=== PATIENT | male | born 1945 | race Caucasian/White ===

== ENCOUNTER 2018-09-13 08:33 | Emergency (ER) | payer MEDICARE, OTHER ==
--- NOTE | 2018-09-13 08:43 | UC ---
Respiratory Complaint HPI - HPI Summary HPI Summary: 73 yo male presents with SOB and fatigue. He tells me that about a week ago he developed fatigue, body aches, and a mild dry cough. Over the last 2-3 days has had increased fatigue and SOB that was at it's worst last night and today. Last night had a fever of 104F per . was sick was similar symptoms a few days ago, but has since improved. Pt did not get a flu shot this year. He has not taken anything OTC for his symptoms. Denies sinus symptoms, chest pain, abdominal pain, n/v/d. He does not smoke. Denies any PMHx - History of Current Complaint Stated Complaint: FEVER COUGH BODY ACHES Time Seen by Provider: 09/13/18 08:43 Hx Obtained From: Patient Onset/Duration: Gradual Onset Timing: Constant Severity Initially: Mild Severity Currently: Moderate Pain Intensity: 5 Pain Scale Used: 0-10 Numeric Character: Cough: Productive - Allergies/Home Medications Allergies/Adverse Reactions: Allergies Allergy/AdvReac Type Severity Reaction Status Date / Time No Known Allergies Allergy Verified 09/13/18 08:53 Home Medications: Home Medications Omeprazole CAP(NF) [PriLOSEC CAP(NF)] 20 mg PO BID 09/13/18 [History Confirmed 09/13/18] Timolol Maleate [Istalol] 1 drop OP DAILY 09/13/18 [History Confirmed 09/13/18] PMH/Surg Hx/FS Hx/Imm Hx - Additional Past Medical History Additional PMH: None - Surgical History Surgical History: Yes Surgery Procedure, Year, and Place: DOUBLE HERNIA REPAIR, APPENDECTOMY, TONSILLECTOMY - Family History Known Family History: Positive: None - Social History Lives: With Family Alcohol Use: Occasionally Substance Use Type: None Smoking Status (MU): Never Smoked Tobacco - Immunization History Most Recent Tetanus Shot: <5 YEARS ( OF 01/15/15) Review of Systems All Other Systems Reviewed And Are Negative: Yes Constitutional: Positive: Fever, Fatigue, Other - Body aches Skin: Positive: Negative Eyes: Positive: Negative ENT: Positive: Sore Throat Respiratory: Positive: Shortness Of Breath, Cough Cardiovascular: Positive: Negative Gastrointestinal: Positive: Negative Neurovascular: Positive: Negative Neurological: Positive: Negative Psychological: Positive: Negative Physical Exam - Summary Physical Exam Summary: GENERAL: Mild resp distress. SKIN: No rashes, sores, lesions, or open wounds. HEENT: Head: AT/NC Eyes: EOM intact. Conjunctiva clear without inflammation or discharge. Ears: Hearing grossly normal. TMs intact, no bulging, erythema, or edema. Nose: Nasal mucosa pink and moist. NTTP maxillary and frontal sinus. Throat: Posterior oropharynx without exudates, erythema, or tonsillar enlargement. Uvula midline. NECK: Supple. Nontender. No lymphadenopathy. CHEST: Bibasilar crackles and decreased breath sounds throughout. Noted use of accessory muscles for breathing. CV: Tachy. Without m/r/g. Pulses intact. Cap refill <2seconds ABDOMEN: Soft. NTTP. No distention or guarding. Bowel sounds present NEURO: Alert. PSYCH: Age appropriate behavior. Triage Information Reviewed: Yes Vital Signs: Vital Signs: Temp Pulse Resp BP Pulse Ox 100.5 F 104 24 143/83 89 09/13/18 08:43 09/13/18 08:43 09/13/18 08:43 09/13/18 08:43 09/13/18 08:43 Laboratory Tests 09/13/18 09:02 Influenza A (Rapid) Positive A Vital Signs Reviewed: Yes Respiratory Course/Dx - Course Course Of Treatment: Initially pt was 88% on RA and was placed on 2L O2 NC and sat roque to around 90%, then placed on 3L and roque to 92%. POC flu positive. XR : IMPRESSION: PATCHY BIBASILAR CONSOLIDATION. RECOMMEND FOLLOW-UP UNTIL RESOLUTION TO EXCLUDE UNDERLYING. PULMONARY PARENCHYMAL PATHOLOGY. He was given a duoneb treatment and remained on 3L with O2% around 90-92%. Discussed with pt and his and recommended ambulance transfer to ED for further evaluation for PNA and hypoxia. Pt and were agreeable to this. Report called to Swapna NOWAK in ED. Pt left stable via [facility]s. - Differential Dx/Diagnosis Provider Diagnosis: Pneumonia, SOB (shortness of breath) Discharge - Sign-Out/Discharge Documenting (check all that apply): Patient Departure All imaging exams completed and their final reports reviewed: Yes - Discharge Plan Condition: Stable Disposition: TRANS HIGHER LVL OF CARE FAC Referrals: Julio Cesar Agudelo MD [Primary Care Provider] - - Billing Disposition and Condition Condition: STABLE Disposition: Trans Higher Lvl of Care Fac
[2018-09-13] MEDS ORDERED: Albuterol/Ipratropium NEB.SOL* Albuterol 2.5 MG/Ipratropium 0.5 MG 3 ML INH ONE (08:52)
[2018-09-13] MEDS ORDERED: Ipratropium 0.5MG/2.5ML NEB* 0.5 MG/2.5 ML NEB.SOLN INH ONE (08:54)
[2018-09-13] MEDS ORDERED: Albuterol 2.5 MG/3 ML NEB.SOL* (0.083%) INH ONE ×2 (08:54→08:55)
[2018-09-13 09:07] LABS: Influenza A Molecular POSITIVE (Negative)
[2018-09-13 09:50] VITALS: BP 137/70
== END 2018-09-13 10:03 | disposition short-term general hospital (02) ==
LOC: UCEAST 08:33
DX: J18.9 Pneumonia, unspecified organism (principal); R06.02 Shortness of breath
CPT/HCPCS: 71046; 93005; 99213; G0463

== ENCOUNTER 2018-09-13 10:08 | Inpatient (IN) | payer MEDICARE, OTHER ==
[2018-09-13] MEDS ORDERED: Vancomycin(*) 1,500 MG in NS 0.9% 250 ML* 250 ML IVPB ONE (10:32)
[2018-09-13] MEDS ORDERED: Piperacillin/Tazobac ADVAN(*) 3.375 GM in NS 0.9% 100 ML* 100 ML IVPB ONE (10:33)
[2018-09-13] MEDS: NS 0.9% 1000 ML** 1,000 ML IV.FLUID IV ONE ×2 (10:42→11:28)
[2018-09-13] MEDS ORDERED: Acetaminophen TAB* 325 MG PO ONE (10:46)
[2018-09-13] MEDS ORDERED: guaiFENesin/CODIEN 100MG-10MG* 5 ML UDC PO ONE (10:46)
[2018-09-13] MEDS ORDERED: Albuterol/Ipratropium NEB.SOL* Albuterol 2.5 MG/Ipratropium 0.5 MG 3 ML INH ONE (10:47)
--- NOTE | 2018-09-13 10:51 | ED ---
Respiratory - HPI Summary HPI Summary: A 73 y/o male brought in by [facility] ambulance from presents to [facility] with a chief complaint of SOB. Per patient he has an uncontrollable cough, headache and lightheadedness since 09/07/18. The patient reports that at he was diagnosed with the flu and pneumonia. He was given a nebulizer at . He reports that he coughs up yellow phlegm without blood. He has NKDA and no Hx of heart conditions or COPD. He claims to have had hernia and meniscus surgeries. Vital signs while in room - HR: 98 bpm, O2 Sat: 92, BP: 106/66 - History of Current Complaint Chief Complaint: EDRespiratoryDistress Stated Complaint: SOB AND CONFIRMED FLU PER EMS Time Seen by Provider: 09/13/18 10:29 Hx Obtained From: Patient Onset/Duration: Sudden Onset, Lasting Days, Still Present Timing: Constant Initial Severity: Mild Current Severity: Mild Pain Intensity: 0 - out of 10 Character: Cough (Productive), Dyspnea at Rest Sputum Color: Yellow Aggravating Factor(s): Nothing Alleviating Factor(s): Nothing Associated Signs and Symptoms: Dyspnea - Allergy/Home Medications Allergies/Adverse Reactions: Allergies Allergy/AdvReac Type Severity Reaction Status Date / Time No Known Allergies Allergy Verified 09/13/18 08:53 PMH/Surg Hx/FS Hx/Imm Hx Respiratory History: Reports: Hx Pneumonia Sensory History: Denies: Hx Deafness - Surgical History Surgery Procedure, Year, and Place: DOUBLE HERNIA REPAIR, APPENDECTOMY, TONSILLECTOMY Infectious Disease History: No Infectious Disease History: Denies: Traveled Outside the [place] in Last 30 Days - Family History Known Family History: Negative: Blood Disorder - Social History Alcohol Use: Occasionally Substance Use Type: Reports: None Smoking Status (MU): Never Smoked Tobacco Review of Systems Positive: Fever, Chills Positive: Shortness Of Breath, Cough Neurological: Other - positive: lightheadedness Positive: Headache All Other Systems Reviewed And Are Negative: Yes Physical Exam - Summary Physical Exam Summary: GENERAL: Patient is ill-appearing M who is lying comfortable in the stretcher. Patient is not in any acute respiratory distress. HEAD AND FACE: Normocephalic EYES: PERRLA, EOMI x 2. EARS: Hearing grossly intact. MOUTH: Oropharynx within normal limits. NECK: Supple, trachea is midline, no adenopathy, no JVD, no carotid bruit. CHEST: Symmetric, no tenderness at palpation LUNGS: Rhonchorous and wheezing. CVS: Regular rate and rhythm, S1 and S2 present, no murmurs or gallops appreciated. ABDOMEN: Soft, non-tender. Bowel sounds are normal. No abdominal abnormal pulsations. EXTREMITIES: Full ROM in all major joints, no edema, no cyanosis or clubbing. NEURO: Alert and oriented x 3. No acute neurological deficits. Speech is normal and follows commands. SKIN: Dry and warm Triage Information Reviewed: Yes Vital Signs On Initial Exam: Initial Vitals Temp Pulse Resp BP Pulse Ox 102.3 F 91 22 130/74 91 09/13/18 10:17 09/13/18 10:17 09/13/18 10:17 09/13/18 10:17 09/13/18 10:17 Vital Signs Reviewed: Yes Diagnostics - Vital Signs Vital Signs Temp Pulse Resp BP Pulse Ox 09/13/18 10:38 90 09/13/18 10:17 102.3 F 91 22 130/74 91 - Laboratory Result Diagrams: 09/14/18 05:24 09/14/18 05:24 Lab Statement: Any lab studies that have been ordered have been reviewed, and results considered in the medical decision making process. - EKG 11:44 Cardiac Rate: NL - 90 bpm EKG Rhythm: Sinus Rhythm Summary of EKG Findings: EKG at 11:44 showed normal sinus rhythm at 90 bpm with RBBB. Re-Evaluation - Re-Evaluation First Eval Re-Evaluation Time: 11:30 Change: Unchanged Comment: Informed patient of plan for admission. Disposition - Course Course Of Treatment: A 73 y/o male brought in by [facility] ambulance from presents to [facility] with a chief complaint of SOB. Workup is remarkable. The physical exam revealed that the patient was rhonchorous and wheezing and ill appearing. EKG at 11:44 showed normal sinus rhythm at 90 bpm with RBBB. In the ED course the patient was given Duoneb INH, Decadron IV, Robitussin PO, and Sodium Chloride IV. Bloodwork and chemisties obtained. Troponin of 0.05 at 10: 41. Case discussed with hospitalist, Dr. Kaur. I discussed results with patient. The patient agrees with this plan. - Diagnoses Provider Diagnoses: Sepsis due to pneumonia - Physician Notifications Discussed Care Of Patient With: Zaid Kaur Time Discussed With Above Provider: 11:27 Instructed by Provider To: Admit As Inpatient - Critical Care Time Critical Care Time: 30-74 min Discharge - Sign-Out/Discharge Documenting (check all that apply): Patient Departure - admit Patient Received Moderate/Deep Sedation with Procedure: No - Discharge Plan Condition: Fair Disposition: ADMITTED TO [facility] - Billing Disposition and Condition Condition: FAIR Disposition: Admitted to [facility] - Attestation Statements Document Initiated by Scribe: Yes Documenting Scribe: Bhaskar Pace Provider For Whom Tsering is Documenting (Include Credential): Amol Noble MD Scribe Attestation: Bhaskar Santiago scribed for Amol Noble MD on 09/14/18 at 0908. Scribe Documentation Reviewed: Yes Provider Attestation: The documentation as recorded by the Bhaskar christy accurately reflects the service I personally performed and the decisions made by me, Alaina Noble MD Status of Scribe Document: Viewed
[2018-09-13 10:55] LABS: ABS Basophils 0 10^3/ul (0-0.2); ABS Eosinophils 0 10^3/ul (0-0.6); ABS Lymphocytes 0.8 10^3/ul (1.0-4.8); ABS Monocytes 0.5 10^3/ul (0-0.8); ABS Neutrophils 4.5 10^3/ul (1.5-7.7); ABS Nucleated RBC 0 10^3/ul; Eosinophil % 0 %; Hematocrit 29 % (42-52); Hemoglobin 10.1 g/dl (14.0-18.0); Lymphocyte % 13.7 %; Mean Corpuscular HGB Conc 35 g/dl (31-36); Mean Corpuscular Hemoglobin 32 pg (27-31); Mean Corpuscular Volume 92 fL (80-94); Mean Platelet Volume 7.5 fL (7.4-10.4); Nucleated Red Blood Cells % 0; Platelet Count 154 10^3/ul (150-450); Red Blood Count 3.15 10^6/ul (4.00-5.40); Red Cell Distribution Width 14 % (10.5-15); White Blood Count 5.8 10^3/ul (3.5-10.8)
[2018-09-13 11:11] LABS: Activated Partial Thrombo Time 41.2 seconds (26.0-36.3); INR 1.38 (0.77-1.02)
[2018-09-13 11:13] LABS: ALT 28 U/L (7-52); AST 49 U/L (13-39); Albumin/Globulin Ratio 0.5 (1-3); Alkaline Phosphatase 37 U/L (34-104); Anion Gap 10 mmol/L (2-11); BUN/Creatinine Ratio 19.7 (8-20); Blood Urea Nitrogen 25 mg/dL (6-24); C Reactive Protein 92.15 mg/L (<8.01); CO2 Carbon Dioxide 24 mmol/L (22-32); Calcium 8.2 mg/dL (8.6-10.3); Chloride 97 mmol/L (101-111); EGFR African American 67.5 (>60); EGFR Non-African American 55.7 (>60); Glucose 128 mg/dL (70-100); Potassium 3.5 mmol/L (3.5-5.0); Sodium 131 mmol/L (135-145)
[2018-09-13 11:16] LABS: Troponin I 0.05 ng/mL (<0.04)
[2018-09-13] MEDS ORDERED: Dexamethasone IV* 4 MG/ML 1 ML (4 MG) IM ONE (11:23)
[2018-09-13] MEDS ORDERED: Acetaminophen TAB* 325 MG PO PRN (11:43)
[2018-09-13] MEDS ORDERED: Ondansetron INJ* 2 MG/ML VIAL IV PRN (11:43)
[2018-09-13] MEDS ORDERED: Albuterol/Ipratropium NEB.SOL* Albuterol 2.5 MG/Ipratropium 0.5 MG 3 ML INH PRN (11:49)
[2018-09-13] MEDS ORDERED: Oseltamivir SUSP 75 MG dose* 75 MG/12.5 ML ORAL.SYRIN PO SCH (12:00)
[2018-09-13 12:39] LABS: Total Iron Binding Capacity 193 mcg/dL (250-450); Transferrin 138 mg/dL (203-362)
[2018-09-13 12:56] LABS: Ferritin 305.5 ng/mL (24-336)
[2018-09-13 13:00] LABS: Folate > 20.00 ng/mL (>3.99)
[2018-09-13 13:08] LABS: % Iron Saturation 9 % (15-55); Iron < 17 ug/dL (50-212)
[2018-09-13 13:34] LABS: Fibrinogen 403.3 mg/dL (110.8-404.3)
[2018-09-13] MEDS: Oseltamivir CAP* 75 MG CAP PO SCH ×2 (13:45→20:07)
[2018-09-13] MEDS: cefTRIAXone(*) 1 GM in NS 0.9% 50 ML* 50 ML IVPB SCH (14:13)
[2018-09-13] MEDS: DOXYcycline IV* 100 MG in NS 0.9% 250 ML* 250 ML IVPB SCH (14:56)
--- NOTE | 2018-09-13 15:00 | HP ---
CC: Dr. Agudelo, MD * ADMISSION HISTORY AND PHYSICAL: DATE OF ADMISSION: 09/13/18 PRIMARY CARE PROVIDER: Dr. Agudelo at the MD MY ATTENDING WHILE IN THE HOSPITAL: Dr. Zaid Kaur * (DICTATED BY MARYANN ROSAS) CHIEF COMPLAINT: Shortness of breath x1 week. HISTORY OF PRESENT ILLNESS: Mr. Root is a 73-year-old male with past medical history significant only for GERD and hyperlipidemia, who presents to the emergency department after 1 week of shortness of breath accompanied by muscle aches, fevers, chills, and general feeling of malaise. The patient states that this started on 09/07/18 with high fevers, muscle aches, shortness of breath. The patient states this continued for a couple days and then he began to feel better but then felt worse again. The patient feels very short of breath with exertion but has no significant restrictions on his activity level as long as he goes slowly. The patient has chest pain with coughing but no chest pain at rest. No swelling in his legs, no orthopnea. The patient has no sick contacts, but his did have a similar illness throughout this time that she has now fully recovered from. The patient notes occasional wheezing. The patient has no history of reactive airways disease. The patient denies diarrhea, abdominal pain, pain with urination. The patient has cough which is intermittently productive of nonbloody, uncolored sputum. The patient presented to emergency care due to continued shortness of breath, was found to be flu positive and have chest x-ray with bilateral infiltrates consistent with pneumonia and the patient was referred to the emergency department. In the emergency department, the patient came in, was febrile, tachycardiac requiring a large amount of oxygen to maintain his oxygen saturations above 90%. The patient had labs which showed no leukocytosis, but an elevated creatinine, slightly elevated troponin, normal lactic acid and elevated CRP. Due to concern for community acquired pneumonia, we were asked to evaluate the patient for admission to hospital. The patient has not had any significant weight loss, weight gain, night sweats, difficulty swallowing. PAST MEDICAL HISTORY: 1. GERD. 2. Hyperlipidemia. 3. Glaucoma. PAST SURGICAL HISTORY: 1. Hernia repair. 2. Meniscus repair. MEDICATIONS: 1. Omeprazole 20 mg p.o. daily. 2. Pravastatin unknown dose. 3. Timolol 1 drop both eyes daily. 4. Aspirin 81 mg p.o. daily. ALLERGIES: No known drug allergies. FAMILY HISTORY: The patient's father of [place]. The patient's mother of unknown cancer. The patient has 2 sisters who are alive and healthy. SOCIAL HISTORY: The patient never smoked, drinks alcohol occasionally. No illicit drug use. 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 The patient is and has 3 children. REVIEW OF SYSTEMS: A 14-point review of systems was reviewed and is negative except as noted above in the HPI. PHYSICAL EXAMINATION GENERAL: The patient is a 73-year-old male who appears stated age and sitting in the bed with a slightly increased work of breathing. VITAL SIGNS: Temperature 102.3, pulse rate 91, respiratory rate 22, oxygen saturation 95% on 10 L, blood pressure 100/60. HEENT: Head: Normocephalic, atraumatic. Sclerae anicteric. No conjunctival injection. Nasal mucosa moist. Oral mucosa moist. No pharyngeal erythema, discharge, or exudate. NECK: Supple, nontender. No lymphadenopathy. No carotid bruit auscultated. No JVD. RESPIRATORY: Severe rhonchi in the bilateral lower lobes. Good air exchange bilaterally. No wheezing heard at this time. CARDIAC: No tachycardiac. No clicks, murmurs, gallops, or rubs. Pulses 2+ in the bilateral dorsalis pedis, posterior tibialis, and radial areas. ABDOMEN: Soft, nontender, nondistended. Bowel sounds present and normoactive in all 4 quadrants. No hepatosplenomegaly. No abdominal bruits auscultated. No hepatojugular reflux. GENITOURINARY: No suprapubic or CVA tenderness. NEURO: Cranial nerves II through XII intact. No focal deficits. Alert and oriented x3. PSYCHIATRIC: Pleasant and cooperative. SKIN: Clean, dry, and intact. No rash. DIAGNOSTIC STUDIES/LAB DATA: White blood cell count 5.8, hemoglobin 10.1, hematocrit 29, platelet count 154. INR 1.38. APTT 41.2. Sodium 131, potassium 3.5, chloride 97, carbon dioxide 24, anion gap 10, BUN 25, creatinine 1.27, glucose 128, lactic acid 1.1, calcium 8.2. Bilirubin 0.6, AST 49, ALT 28 , alkaline phosphatase 37. Troponin-I 0.05. CRP 92.15. Protein 9.0, albumin 3.0, globulin 6.0, albumin-globulin ratio 0.5. Studies: Chest x-ray from Urgent Care read as patchy opacities with consolidation. Recommend follow up until resolution to exclude underlying pulmonary parenchymal pathology. Electrocardiogram shows right bundle-branch block. No ST segment elevation or depression. Normal axes. No other T wave, ST segment changes, rate of 90, QTc of 473. Poor quality study due to motion artifact consistent with EKG from earlier today. ASSESSMENT AND PLAN: Impression: Mr. Root is a 73-year-old male with minor past medical history significant only for gastroesophageal reflux disease and hyperlipidemia, who presents to the emergency department with 1 week of shortness of breath. The patient is flu A positive and has infiltrates on his lung exam consistent with community acquired pneumonia likely bacterial superinfection over his community acquired pneumonia. The patient will be admitted to the hospital for antibiotic as well as supportive treatment. 1. Acute hypoxic respiratory failure, sepsis, influenza positive community acquired pneumonia. The patient is meeting sepsis criteria. The patient is tachycardiac, febrile, though the patient has no leukocytosis. The patient with elevated CRP and is tachypneic. The patient received his fluid bolus of 30 mL/kg. In the emergency department, the patient received broad-spectrum antibiotic coverage with ceftriaxone and doxycycline. The patient received steroids in the emergency department as well as inhalers and wheezing that was reported on admission has now improved. The patient will be continued on steroids high dose for a short course and inhalers will be available as needed. The patient will receive vancomycin taper and Zosyn while in the emergency department. The patient will be treated with ceftriaxone, doxycycline to cover community acquired pathogens as well as methicillin-resistant Staphylococcus aureus post influenza. The patient will be monitored closely. The patient does not appear to be fatiguing from his work of breathing at this time. Further positive pressure ventilation can be considered if the patient begins to show more signs of fatiguing. 2. Anemia. The patient is anemic with slightly elevated MCH. Given his lack of past medical history, we will order an iron panel, vitamin B12 and a folate. This in a combination with the patient's high globulin level raises factor of some sort of chronic inflammatory condition previously undiagnosed. 3. Elevated INR and APTT. This is of unknown cause; we will repeat in the morning. This may warrant further evaluation outside when the patient is no longer suffering from this acute illness, thought that this may be related to the aforementioned and possible chronic long-term systemic inflammation. 4. Hyperlipidemia. Continue the patient's statins. 5. Gastroesophageal reflux disease. Continue the patient's omeprazole. 6. DVT prophylaxis. The patient will get heparin subcu. 7. FEN. The patient will have a heart healthy diet without caffeine and fluids at 100 ml/h after his bolus is completed. 8. Disposition. The patient will be admitted inpatient. 9. Estimated length of stay greater than 2 midnights. TIME SPENT: Approximately 60 minutes was spent on the admission of this patient , 30 of which was spent [id number] with the patient obtaining history and physical and discussing treatment plan. The plan was discussed with my attending, Dr. Zaid Kaur, and he is in agreement. MARYANN ROSAS [id number]/[facility] #: [id number] PAULA
[2018-09-13] MEDS: Heparin VIAL(*) 5000 UNITS/ML VIAL (FIVE THOUSAND) SUBCUT SCH ×2 (15:12→21:49)
[2018-09-13 15:16] LABS: Troponin I 0.04 ng/mL (<0.04)
[2018-09-13] MEDS: Atorvastatin* 20 MG TAB PO SCH (20:07)
[2018-09-13] MEDS: Pantoprazole TAB * 40 MG TAB PO SCH (20:07)
[2018-09-13] MEDS: guaiFENesin ER TAB 600 MG PO SCH (20:07)
[2018-09-13] MEDS: NS 0.9% 1000 ML** 1,000 ML IV SCH (21:49)
[2018-09-14] MEDS: DOXYcycline IV* 100 MG in NS 0.9% 250 ML* 250 ML IVPB SCH (01:21)
[2018-09-14 05:16] LABS: Urine Appearance Cloudy; Urine Bacteria Absent (Absent); Urine Bilirubin Negative (Negative); Urine Blood Negative (Negative); Urine Color Yellow; Urine Glucose 2+(150 mg/dL) (Negative); Urine Ketones Negative (Negative); Urine Nitrite Negative (Negative); Urine Protein 1+(30 mg/dL) (Negative); Urine Red Blood Cell Absent (Absent); Urine Specific Gravity 1.028 (1.010-1.030); Urine Urobilinogen Negative (Negative); Urine White Blood Cell Absent (Absent)
[2018-09-14] MEDS: Heparin VIAL(*) 5000 UNITS/ML VIAL (FIVE THOUSAND) SUBCUT SCH ×3 (05:22→21:06)
[2018-09-14 05:44] LABS: ABS Basophils 0 10^3/ul (0-0.2); ABS Eosinophils 0 10^3/ul (0-0.6); ABS Lymphocytes 0.9 10^3/ul (1.0-4.8); ABS Monocytes 0.3 10^3/ul (0-0.8); ABS Neutrophils 6.4 10^3/ul (1.5-7.7); ABS Nucleated RBC 0 10^3/ul; Eosinophil % 0 %; Hematocrit 29 % (42-52); Hemoglobin 9.9 g/dl (14.0-18.0); Lymphocyte % 11.3 %; Mean Corpuscular HGB Conc 34 g/dl (31-36); Mean Corpuscular Hemoglobin 32 pg (27-31); Mean Corpuscular Volume 94 fL (80-94); Nucleated Red Blood Cells % 0; Platelet Count 152 10^3/ul (150-450); Red Blood Count 3.11 10^6/ul (4.00-5.40); Red Cell Distribution Width 14 % (10.5-15); White Blood Count 7.6 10^3/ul (3.5-10.8)
[2018-09-14 05:52] LABS: Activated Partial Thrombo Time 46.6 seconds (26.0-36.3); INR 1.29 (0.77-1.02)
[2018-09-14 05:59] LABS: Albumin 2.8 g/dL (3.2-5.2); Albumin/Globulin Ratio 0.5 (1-3); BUN/Creatinine Ratio 26.7 (8-20); EGFR African American 100.4 (>60); EGFR Non-African American 82.9 (>60); Globulin 5.9 g/dL (2-4); Magnesium 2.1 mg/dL (1.9-2.7); Potassium 4.1 mmol/L (3.5-5.0); Total Bilirubin 0.3 mg/dL (0.2-1.0); Total Protein 8.7 g/dL (6.4-8.9)
[2018-09-14] MEDS: NS 0.9% 1000 ML** 1,000 ML IV SCH (09:00)
[2018-09-14] MEDS ORDERED: PRAVASTATIN PO SCH (09:00)
[2018-09-14] MEDS: Timolol 0.5% OPTH.SOL* BTL SCH (09:00)
[2018-09-14] MEDS: Oseltamivir CAP* 75 MG CAP PO SCH ×2 (09:01→21:06)
[2018-09-14] MEDS: predniSONE TAB* 50 MG PO SCH (09:01)
[2018-09-14] MEDS: guaiFENesin ER TAB 600 MG PO SCH ×2 (09:01→21:06)
[2018-09-14] MEDS: Pantoprazole TAB * 40 MG TAB PO SCH ×2 (09:02→21:06)
[2018-09-14] MEDS: Aspirin 81 mg CHEW TAB* 81 MG TAB.CHEW PO SCH (09:02)
[2018-09-14] MEDS: cefTRIAXone(*) 1 GM in NS 0.9% 50 ML* 50 ML IVPB SCH (13:36)
[2018-09-14] MEDS: Benzonatate CAP* 100 MG PO PRN ×2 (13:36→21:05)
--- NOTE | 2018-09-14 16:44 | PN ---
Subjective Date of Service: 09/14/18 Interval History: Pt stated that cough and SOB is improved today Objective Active Medications: Acetaminophen (Tylenol Tab*) 650 mg PO Q6H PRN PRN Reason: FEVER/PAIN Albuterol/Ipratropium (Duoneb (Albuterol 2.5 Mg/Ipratropium 0.5 Mg)) 1 neb INH Q6H PRN PRN Reason: SOB/WHEEZING Aspirin (Aspirin 81 Mg Chew Tab*) 81 mg PO DAILY [facility] Last Admin: 09/14/18 09:02 Dose: 81 mg Atorvastatin Calcium (Lipitor*) 20 mg PO 2100 [facility] Last Admin: 09/13/18 20:07 Dose: 20 mg Benzonatate (Tessalon Cap*) 100 mg PO BID PRN PRN Reason: COUGH Last Admin: 09/14/18 13:36 Dose: 100 mg Doxycycline Hyclate (Vibramycin Cap(*)) 100 mg PO BID [facility] Guaifenesin (Mucinex*) 1,200 mg PO BID [facility] Last Admin: 09/14/18 09:01 Dose: 1,200 mg Heparin Sodium (Porcine) (Heparin Vial(*)) 5,000 units SUBCUT Q8HR [facility] Last Admin: 09/14/18 13:34 Dose: 5,000 units Ceftriaxone Sodium 1 gm/ (Sodium Chloride) 50 mls @ 200 mls/hr IVPB Q24H [facility] Last Admin: 09/14/18 13:36 Dose: 200 mls/hr Sodium Chloride (Ns 0.9% 1000 Ml) 1,000 mls @ 100 mls/hr IV PER RATE [facility] Last Admin: 09/14/18 09:00 Dose: 100 mls/hr Ondansetron HCl (Zofran Inj*) 4 mg IV Q6H PRN PRN Reason: NAUSEA Oseltamivir Phosphate (Tamiflu Cap*) 75 mg PO BID [facility] Last Admin: 09/14/18 09:01 Dose: 75 mg Pantoprazole Sodium (Protonix Tab*) 40 mg PO BID [facility] Last Admin: 09/14/18 09:02 Dose: 40 mg Prednisone (Deltasone Tab*) 50 mg PO DAILY [facility] Last Admin: 09/14/18 09:01 Dose: 50 mg Timolol Maleate (Timoptic 0.5% Opth*) 1 drop .SEE ORDER DAILY [facility] Last Admin: 09/14/18 09:00 Dose: 1 drop Vital Signs - 8 hr 09/14/18 09/14/18 11:02 15:48 Temperature 99.0 F 98.5 F Pulse Rate 87 81 Respiratory 22 22 Rate Blood Pressure 128/80 128/69 (mmHg) O2 Sat by Pulse 95 94 Oximetry Oxygen Devices in Use Now: Nasal Cannula Appearance: 73 yo M in nAD, aAOx3 Eyes: No Scleral Icterus, PERRLA Ears/Nose/Mouth/Throat: NL Teeth, Lips, Gums, Mucous Membranes Moist Neck: NL Appearance and Movements; NL JVP, Trachea Midline Respiratory: Symmetrical Chest Expansion and Respiratory Effort, - - rhonchi at b/l bases Cardiovascular: NL Sounds; No Murmurs; No JVD, RRR Abdominal: NL Sounds; No Tenderness; No Distention Lymphatic: No Cervical Adenopathy Extremities: No Edema, No Clubbing, Cyanosis Skin: No Rash or Ulcers, No Nodules or Sclerosis Neurological: Alert and Oriented x 3, NL Muscle Strength and Tone Result Diagrams: 09/14/18 05:24 09/14/18 05:24 Microbiology and Other Data: Microbiology 09/13/18 10:37 Aerobic Blood Culture - Preliminary Blood Venous No Growth Day 1 Anaerobic Blood Culture - Preliminary No Growth Day 1 09/13/18 10:41 Aerobic Blood Culture - Preliminary Blood Venous No Growth Day 1 Anaerobic Blood Culture - Preliminary No Growth Day 1 09/14/18 04:55 Gram Stain - Final Sputum Expectorated 09/13/18 03:48 Legionella Urinary Antigen - Final Urine Negative Legionella Antigen Streptococcus pneumoniae Ag Screen - Final Negative S. pneumo Antigen Assess/Plan/Problems-Billing Assessment: 73 yo M with h/o GERD presented with SOB, dx with b/l PNA and Influenza - Patient Problems (1) Acute hypoxemic respiratory failure Comment: due to pneumonia and Influenza Cont Tamiflu, Doxy, Ceftriaxone Pt was started on Prednisone at admission for bronchospasm-seems improved, will cont steroids for now though. (2) Troponin I above reference range Comment: max at 0.05-likely due to demand ischemia will get Echo to eval for wall motion abn (3) Normocytic anemia Comment: iron studies indicate ACD Will start pt on Po iron nevertheless. will obtain stool guaiac (4) YUDI (acute kidney injury) Comment: due to sepsis,resolved (5) DVT prophylaxis Comment: HSQ Status and Disposition: Inpatient
[2018-09-14] MEDS: Ferrous Sulfate TAB* 325 MG PO SCH (21:06)
[2018-09-14] MEDS: DOXYcycline CAP(*) 100 MG PO SCH (21:06)
[2018-09-14] MEDS: Atorvastatin* 20 MG TAB PO SCH (21:06)
[2018-09-15] MEDS: Heparin VIAL(*) 5000 UNITS/ML VIAL (FIVE THOUSAND) SUBCUT SCH (06:08)
[2018-09-15 08:26] VITALS: BP 126/69
[2018-09-15] MEDS: DOXYcycline CAP(*) 100 MG PO SCH (08:31)
[2018-09-15] MEDS: Aspirin 81 mg CHEW TAB* 81 MG TAB.CHEW PO SCH (08:31)
[2018-09-15] MEDS: predniSONE TAB* 50 MG PO SCH (08:31)
[2018-09-15] MEDS: guaiFENesin ER TAB 600 MG PO SCH (08:31)
[2018-09-15] MEDS: Oseltamivir CAP* 75 MG CAP PO SCH (08:31)
[2018-09-15] MEDS: Pantoprazole TAB * 40 MG TAB PO SCH (08:31)
[2018-09-15] MEDS: Timolol 0.5% OPTH.SOL* BTL SCH (08:31)
[2018-09-15] MEDS: Ferrous Sulfate TAB* 325 MG PO SCH (08:31)
[2018-09-15 08:37] LABS: ABS Basophils 0 10^3/ul (0-0.2); ABS Eosinophils 0 10^3/ul (0-0.6); ABS Lymphocytes 0.9 10^3/ul (1.0-4.8); ABS Monocytes 0.4 10^3/ul (0-0.8); ABS Neutrophils 4.9 10^3/ul (1.5-7.7); ABS Nucleated RBC 0 10^3/ul; Eosinophil % 0 %; Hematocrit 29 % (42-52); Hemoglobin 9.7 g/dl (14.0-18.0); Lymphocyte % 14.4 %; Mean Corpuscular HGB Conc 34 g/dl (31-36); Mean Corpuscular Hemoglobin 31 pg (27-31); Mean Corpuscular Volume 93 fL (80-94); Mean Platelet Volume 8.3 fL (7.4-10.4); Nucleated Red Blood Cells % 0; Platelet Count 164 10^3/ul (150-450); Red Blood Count 3.11 10^6/ul (4.00-5.40); Red Cell Distribution Width 14 % (10.5-15); White Blood Count 6.2 10^3/ul (3.5-10.8)
[2018-09-15 08:59] LABS: BUN/Creatinine Ratio 27.3 (8-20); Calcium 8.2 mg/dL (8.6-10.3); EGFR Non-African American 85.1 (>60); Potassium 3.8 mmol/L (3.5-5.0)
--- NOTE | 2018-09-15 09:26 | PN ---
Progress Note - Progress Note Date of Service: 09/15/18 Note: Time spent on discharge including exam of pt, discussion with patient, , CM , nurse, review of EMR and preparation of discharge documents is 50 minutes.
--- NOTE | 2018-09-15 11:06 | DS ---
CC: Dr. Agudelo at the [place] DISCHARGE SUMMARY: DATE OF ADMISSION: 09/13/18 DATE OF DISCHARGE: 09/15/18 HISTORY: This 73-year-old man presented with shortness of breath for about a week. He had muscle ach es, fevers, chills, and malaise. He was bringing up some yellow sputum as well. On admission, he wa s tachycardiac and febrile, over 102 degrees. He was hypoxic. He had some wheezing and rhonchi. His rapid flu test was positive for influenza A. Chest x-ray showed bilateral infiltrates. He was patrick garrett with doxycycline, ceftriaxone, oseltamivir, and steroids. He did well. On the day of discharge, he had some chest pain related to cough particularly in the right ribs and the sternal area. He did not require any analgesics. His O2 saturation on room air was 91% to 92%. He felt much better and was in good condition to go home. FINAL DIAGNOSES: 1. Influenza A. 2. Bronchopneumonia. 3. Borderline troponin of 0.05, repeat is normal. 4. Iron-deficiency anemia. 5. Acute kidney injury, resolved. MEDICATIONS ON DISCHARGE: 1. Cefuroxime 500 mg b.i.d. for 9 more doses. 2. Doxycycline 100 mg b.i.d. for 12 more doses. 3. Prednisone 10 mg to taper from 4 to 0 over 4 days. 4. Acetaminophen 650 mg every 6 hours p.r.n. 5. Oseltamivir 75 mg b.i.d. for 5 more doses. 6. Ferrous sulfate 325 mg daily. 7. Aspirin 81 mg daily. 8. Pravastatin 0.5 mg daily. 9. Omeprazole 20 mg b.i.d. 10. Timolol maleate 1 drop as prescribed. CONDITION ON DISCHARGE: Improved. DISPOSITION ON DISCHARGE: Discharged to home. INSTRUCTIONS: The patient was advised that he should have a workup for iron- deficiency anemia. If the patient recovers to his baseline status after his acute infection is going as he is very active and has no symptoms of heart disease, I am not sure zbigniew t the troponin level of 0.05 would be an indication for any further cardiac workup. I will leave zbigniew t to his primary care provider to decide. [id number]/[facility] #: [id number]
[2018-09-16 17:55] LABS: Albumin 2.7 g/dL (3.4-4.7); Albumin/Globulin Ratio 0.46; Gamma Globulin 3.9 g/dL (0.6-1.6); Total Protein(PEP) 8.4 g/dL (6.3 - 7.9)
== END 2018-09-15 11:40 | disposition home or self-care (01) | DRG 871 ==
LOC: ED 10:08 → MEDTELE 11:43
PROVIDERS: ADMIT Internal Medicine; ATTEND Internal Medicine
DX: A41.9 Sepsis, unspecified organism (principal); J10.08 Influenza due to other identified influenza virus with other specified pneumonia; J96.01 Acute respiratory failure with hypoxia; N17.9 Acute kidney failure, unspecified; D50.9 Iron deficiency anemia, unspecified; K21.9 Gastro-esophageal reflux disease without esophagitis; H40.9 Unspecified glaucoma; E78.5 Hyperlipidemia, unspecified; R74.8 Abnormal levels of other serum enzymes; I45.10 Unspecified right bundle-branch block; Z82.49 Family history of ischemic heart disease and other diseases of the circulatory system; Z72.89 Other problems related to lifestyle; Z79.82 Long term (current) use of aspirin
CPT/HCPCS: 36415; 80048; 80053; 81003; 81015; 82272; 82607; 82728; 82746; 83540; 83550; 83605; 83735; 83880; 84155; 84165; 84484; 85025; 85384; 85610; 85730; 86140; 86334; 87040; 87070; 87205; 87899; 93005; 99284; A9270-GY; J0696; J1100; J1644; J2543; J3370; J7512

== ENCOUNTER 2018-11-12 06:23 | Emergency (ER) | payer SELFPAY ==
[2018-11-12] MEDS ORDERED: NS 0.9% 1000 ML** 1,000 ML IV ONE (06:24)
[2018-11-12] MEDS ORDERED: Labetalol IV* 5 MG/ML 20 ML VIAL IV PUSH ONE ×2 (06:30→06:59)
[2018-11-12] MEDS ORDERED: Labetalol IV* 5 MG/ML 20 ML VIAL ONE (06:30)
--- NOTE | 2018-11-12 06:30 | ED ---
Neurological HPI - HPI Summary HPI Summary: Patient is a 73 y/o M presenting to ED via EMS with severe headache and left- sided weakness/decreased sensation. EMS reports that the patient went to sleep at 2330 last night, 11/11/18 asymptomatic. It is reported that the patient woke up at 0330 11/12/18 and was able to ambulate, no Sx reported at that time. At 0530 today, 11/12/18, patient awoke and had complaints of severe headache located behind the patient's right eye and left sided weakness/decreased sensation. EMS states that the patient's BP gradually roque to 200/140 and notes that he became progressively more lethargic during transport. EMS notes that the patient had a fall this week, but this occurred four days ago and it was noted to have occurred on a soft surface. When the patient arrived to the ED, EMS claims that the patient was capable of lifting his left leg. However, decreased sensation of left leg is still present per EMS. Stan sotelo called at 0609, EMS arrived at 0622, patient was immediately sent for Brain CT, provider in room immediately to evaluate upon patient's return from CT. EMS notes that the patient's is coming to ED. Level 5 caveat, AMS, lethargy. - History of Current Complaint Stated Complaint: POSS STOKE PER EMS Hx Obtained From: EMS Hx From Patient Unobtainable Due To: Altered Mental Status - lethargic Onset/Duration: Started hours ago, Still Present Timing: Constant Onset Severity: Severe Current Severity: Severe Neurological Deficit Location: LUE, LLE Headache Location: Frontal - right Pain Scale Used: 0-10 Numeric Character: Motor Weakness - left sided, Sensory Loss - left sided, Lethargy, Other: - headache Aggravating: Nothing Alleviating: Nothing Associated Signs and Symptoms: Positive: Headache, Weakness - left sided, AMS - Additional Pertinent History Primary Care Physician: [id number] - Allergy/Home Medications Allergies/Adverse Reactions: Allergies Allergy/AdvReac Type Severity Reaction Status Date / Time No Known Allergies Allergy Verified 09/13/18 08:53 PMH/Surg Hx/FS Hx/Imm Hx Cardiovascular History: Denies: Hx Hypertension Respiratory History: Reports: Hx Pneumonia Sensory History: Reports: Hx Contacts or Glasses Denies: Hx Deafness, Hx Hearing Aid Opthamlomology History: Reports: Hx Contacts or Glasses - Surgical History Surgery Procedure, Year, and Place: DOUBLE HERNIA REPAIR, APPENDECTOMY, TONSILLECTOMY - Family History Known Family History: Negative: Blood Disorder - Social History Alcohol Use: Occasionally Substance Use Type: Reports: None Smoking Status (MU): Never Smoked Tobacco Review of Systems - ROS Summary Review of Systems Summary: level 5 caveat, AMS, lethargy Neurological: Other - POSITIVE - LEFT SIDED DECREASED SENSATION Positive: Headache, Weakness - left Psychological: Other - POSITIVE - AMS, LETHARGY All Other Systems Reviewed And Are Negative: No - Comments Additional Review of Systems Comments: level 5 caveat, AMS, lethargy Physical Exam - Summary Physical Exam Summary: VITAL SIGNS: Reviewed. GENERAL: Patient is a well-developed and nourished male who is comfortable in the stretcher. Patient is not in any acute respiratory distress. HEAD AND FACE: No signs of trauma. No ecchymosis, hematomas or skull depressions. No sinus tenderness. EYES: PERRLA, EOMI x 2, No injected conjunctiva, no nystagmus. EARS: Hearing grossly intact. Ear canals and tympanic membranes are within normal limits. MOUTH: Oropharynx within normal limits. NECK: Supple, trachea is midline, no adenopathy, no JVD, no carotid bruit, no c- spine tenderness, neck with full ROM CHEST: Symmetric, no tenderness at palpation LUNGS: Clear to auscultation bilaterally. No wheezing or crackles. CVS: Regular rate and rhythm, S1 and S2 present, no murmurs or gallops appreciated. ABDOMEN: Soft, non-tender. No signs of distention. No rebound no guarding, and no masses palpated. Bowel sounds are normal. EXTREMITIES: FROM in all major joints, no edema, no cyanosis or clubbing. NEURO: Alert, responds to name, able to answer simple questions. GCS 14, NIH 8. SKIN: Dry and warm Triage Information Reviewed: Yes Vital Signs On Initial Exam: Initial Vitals Temp Pulse Resp BP Pulse Ox 97.9 F 80 18 177/101 90 11/12/18 06:35 11/12/18 06:35 11/12/18 06:35 11/12/18 06:35 11/12/18 06:35 Vital Signs Reviewed: Yes Diagnostics - Laboratory Result Diagrams: 11/12/18 06:40 11/12/18 06:40 Lab Statement: Any lab studies that have been ordered have been reviewed, and results considered in the medical decision making process. - Radiology CXR Radiology Interpretation Completed By: ED Physician Summary of Radiographic Findings: No acute process, pending official report. - CT BRAIN CT CT Interpretation Completed By: Radiologist Summary of CT Findings: IMPRESSION: Large intraparenchymal hemorrhage with surrounding edema in the right pectoral. component no currently measuring 5.6 x 4.3 in the parietal lobe and 3.7 x 3.6. cm in the right temporal lobe. Adjacent subarachnoid hemorrhage. Hemorrhage is. causing marked mass effect on the right basal ganglia right lateral ventricle. and third ventricle with effacement of the ventricle and entrapment of the left. lateral ventricle. Midline shift to the left measuring approximately 7 mm. findings a represent hemorrhagic infarct, hemorrhagic AVM, hypertensive. hemorrhage, versus hemorrhagic tumor, clinical correlation and further. evaluation with contrast- enhanced MR examination is recommended. THIS REPORT WAS REVIEWED BY DR. MEMBRENO. - EKG 0652 Cardiac Rate: NL - RATE OF 72 BPM EKG Rhythm: Sinus Rhythm Summary of EKG Findings: EKG showed sinus rhythm with rate of 72 BPM, normal axis, normal interval, no ischemic changes. NIH Scale - NIH Scale Level of Consciousness: Alert/Keenly Responsive Ask Patient the Month and His/Her Age: Both Correct Ask Pt to Open/Close Eyes and Airline Pilot/Release Non-Paretic Hand: Both Correctly Best Gaze (Only Horizontal Eye Movement): Partial Gaze Palsy Visual Field Testing: No Visual Loss Facial Paresis-Pt to Smile & Close Eyes or Grimace Symmetry: Normal/Symmetrical Motor Function - Right Arm: No Drift-Holds 10 Seconds Motor Function - Left Arm: No Effort Against Black Motor Function - Right Leg: No Drift-Holds 10 Seconds Motor Function - Left Leg: No Effort Against Black Limb Ataxia-Must be out of Proportion to Weakness Present: Absent Sensory (Use Pinprick to Test Arms/Legs/Trunk/Face): Normal Best Language (Describe Picture, Name Items): No Aphasia Dysarthria (Read Several Words): Slurs Some Words Extinction and Inattention: No Abnormality Total Score: 8 Re-Evaluation - Re-Evaluation First Eval Re-Evaluation Time: 06:45 Change: Unchanged Comment: Patient's has arrived in ED, she states that the patient was "fine " when he woke up at 0330 this morning. She notes that the patient began to complain of JUSTICE at 0530 this morning. She states that the patient does not have a Hx of HTN. Patient is alert, responds to name. Course/Dx - Course Course Of Treatment: Patient is a 73 y/o M presenting to ED via EMS with severe headache and left-sided weakness/decreased sensation. EMS reports that the patient went to sleep at 2330 last night, 11/11/18 asymptomatic. It is reported that the patient woke up at 0330 11/12/18 and was able to ambulate, no Sx reported at that time. At 0530 today, 11/12/18, patient awoke and had complaints of severe headache located behind the patient's right eye and left sided weakness/decreased sensation. EMS states that the patient's BP gradually roque to 200/140 and notes that he became progressively more lethargic during transport. EMS notes that the patient had a fall this week, but this occurred four days ago and it was noted to have occurred on a soft surface. When the patient arrived to the ED, EMS claims that the patient was capable of lifting his left leg. However, decreased sensation of left leg is still present per EMS. On physical exam, patient is Alert, responds to name, able to answer simple questions. GCS 14, NIH 8. 0655 - Dr. Louis, radiologist, communicated brain CT impression over phone. 0653 - Dr. Mcgee was contacted, patient's case was discussed, he states that he will call back after looking over CT of patient. BRAIN CT IMPRESSION: Large intraparenchymal hemorrhage with surrounding edema in the right pectoral. component no currently measuring 5.6 x 4.3 in the parietal lobe and 3.7 x 3.6. cm in the right temporal lobe. Adjacent subarachnoid hemorrhage. Hemorrhage is. causing marked mass effect on the right basal ganglia right lateral ventricle. and third ventricle with effacement of the ventricle and entrapment of the left. lateral ventricle. Midline shift to the left measuring approximately 7 mm. findings a represent hemorrhagic infarct, hemorrhagic AVM, hypertensive. hemorrhage, versus hemorrhagic tumor, clinical correlation and further. evaluation with contrast- enhanced MR examination is recommended. CXR showed no acute process, EKG showed sinus rhythm with rate of 72 BPM, normal axis, normal interval, no ischemic changes. 0635 - Dr. Louis, radiologist, communicated brain CT impression over phone. 0674 - Dr. Mcgee was contacted, patient's case was discussed, he states that he will call back after looking over CT of patient. Patient is signed out to Dr. Hicks pending neuro consult, labs, and disposition. - Diagnoses Provider Diagnoses: Intraparenchymal hemorrhage of brain, CVA (cerebral vascular accident) During the Visit The Following Alert/Code Occurred: Code Evans - 0609 called, 06 EMS arrival, patient was immediately sent for brain CT, patient was immediately evaluated by provider upon return from brain CT. - Physician Notifications Discussed Care Of Patient With: Shane Hinkle Time Discussed With Above Provider: 06:43 Instructed by Provider To: Other - 634 - Dr. Louis, radiologist, communicated brain CT impression over phone. [phone] - Dr. Mcgee was contacted, patient's case was discussed, he states that he will call back after looking over CT of patient. - Critical Care Time Critical Care Time: 30-74 min Discharge - Sign-Out/Discharge Documenting (check all that apply): Sign-Out Patient Signing out patient TO: Daniel Hicks - Discharge Plan Condition: Stable Disposition: TRANS HIGHER LVL OF CARE FAC Referrals: Julio Cesar Agudelo MD [Primary Care Provider] - - Attestation Statements Document Initiated by Scribe: Yes Documenting Scribe: MORGAN OJEDA Provider For Whom Scribe is Documenting (Include Credential): FAHEEM MEMBRENO MD Scribe Attestation: MORGAN Santiago, scribed for FAHEEM MEMBRENO MD on 11/12/18 at 0736. Status of Scribe Document: Ready
[2018-11-12] MEDS ORDERED: Mannitol 25% (12.5 GM) 50 ML* 12.5 GM/50 ML VIAL IV ONE (06:31)
[2018-11-12] MEDS ORDERED: Morphine 4 MG/ML VIAL (1 ml) 4 MG/ML VIAL IV ONE (06:35)
[2018-11-12] MEDS ORDERED: Ondansetron INJ* 2 MG/ML VIAL IV ONE (06:36)
[2018-11-12 06:59] LABS: INR 1.16 (0.82-1.09)
[2018-11-12] MEDS ORDERED: levETIRAcetam 1000MG IVPREMIX* 1,000 MG/100 ML BAG IVPB ONE (07:00)
[2018-11-12 07:11] LABS: Troponin I 0.01 ng/mL (<0.04)
[2018-11-12 07:18] LABS: ABS Eosinophils 0.1 10^3/ul (0-0.6); ABS Lymphocytes 1.8 10^3/ul (1.0-4.8); ABS Monocytes 0.7 10^3/ul (0-0.8); ABS Neutrophils 2.5 10^3/ul (1.5-7.7); Eosinophil % 2.2 %; Hematocrit 36 % (42-52); Hemoglobin 12.1 g/dL (14.0-18.0); Lymphocyte % 34.8 %; Mean Corpuscular HGB Conc 34 g/dL (31-36); Mean Corpuscular Hemoglobin 31 pg (27-31); Mean Corpuscular Volume 92 fL (80-94); Mean Platelet Volume 8.1 fL (7.4-10.4); Nucleated Red Blood Cells % 0.2; Platelet Count 241 10^3/uL (150-450); Red Blood Count 3.88 10^6 /uL (4.18-5.48); Red Cell Distribution Width 15 % (10.5-15)
--- NOTE | 2018-11-12 07:19 | ED ---
Progress - Progress Note Progress Note: Receiving sign out from Dr. Orozco to Dr. Hicks at shift change 0700 pending labs, disposition and neurological surgery consult. Consult with Briseida Abrams at 0716. He mentioned the possibility of transfer and to make arrangements for a CTA Head. Re-evaluation at 0725: is at the bedside. Patient has eyes closed but is able to follow commands and answer basic questions. He continues to have some left side hemiparesis. Discussed with the likely need for transfer as well as the seriousness of his presentation. Discussed he has full code status. We were informed by nursing that we currently have ICU holds. This patient will require transfer. The patients blood pressure responded to IV Labetalol, and is currently 140 systolic. The patient was accepted for transfer by Dr. Burgess, Neurology, at [facility]. Re-evaluation at 0753: Current GCS is 11. CTA Head pending at time of transfer. - Consult/PCP Time Called: 07:16 Consult/PCP: Dr. Frost Neuro Surgery Consult Reason/Comments: Will see patient in ED. Order CTA and mentioned possible Transfer. Re-Evaluation - Re-Evaluation First Eval Re-Evaluation Time: 07:25 Comment: is at the bedside. Patient has eyes closed but is able to follow commands and answer basic question. Continues to have some left side hemiparesis. Discussed with the likely need for transfer as well as the seriousness of his presentation. Discussed that he has full code status. Patient will require transfer. Second Eval Re-Evaluation Time: 07:53 Comment: Current GCS is 11. Course/Dx - Course Course Of Treatment: Receiving sign out from Dr. Orozco to Dr. Hicks at shift change 0700 pending labs, disposition and neurological surgery consult. Consult with Briseida Abrams at 0716. He mentioned the possibility of transfer and to make arrangements for a CTA Head. As we have no ICU beds, I cancelled consultation with Dr. Mcgee. The patient will be direct admitted to [facility] Neuro ICU [address] Dr[address] Burgess. CT C spine and CTA head pending at time of transfer. Re-evaluation at 0725: is at the bedside. Patient has eyes closed but is able to follow commands and answer basic questions. He continues to have some left side hemiparesis. Discussed with the likely need for transfer as well as the seriousness of his presentation. Discussed he has full code status. We were informed by nursing that we currently have ICU holds. This patient will require transfer. The patients blood pressure responded to IV Labetalol, and is currently 140 systolic. The patient was accepted for transfer by Dr. Burgess, Neurology, at [facility]. Re-evaluation at 0753: Current GCS is 11. Re-eval @ 0815 : being loaded onto EMS stretcher, exam is unchanged, GCS 11, able to follow commands and answer questions. Left hemiparesis. Have elected not to intubate at this time. he is managing secretions, no distress. /son aware of potential for deterioration and possible need for intubation in [place]. CTA Head pending at time of transfer. - Diagnoses Provider Diagnoses: Intraparenchymal hemorrhage of brain, CVA (cerebral vascular accident) - Critical Care Time Critical Care Time: 75-104 min Discharge - Sign-Out/Discharge Documenting (check all that apply): Patient Departure - Transfer, Receiving Sign -Out Receiving patient FROM: Vipin Orozco - At shift change 0700 - Discharge Plan Condition: Stable Disposition: TRANS HIGHER LVL OF CARE FAC Referrals: Julio Cesar Agudelo MD [Primary Care Provider] - - Billing Disposition and Condition Condition: STABLE Disposition: Trans Higher Lvl of Care Fac - Attestation Statements Document Initiated by Abrahamibe: Yes Documenting Scribe: Bradley Guerrero Provider For Whom Abrhaamibluiz is Documenting (Include Credential): Daniel Hicks MD Scribe Attestation: Bradley Santiago, scribed for Daniel Hicks MD on 11/12/18 at 0812. Scribe Documentation Reviewed: Yes Provider Attestation: The documentation as recorded by the Bradley christy accurately reflects the service I personally performed and the decisions made by me, Daniel Hicks MD Status of Scribe Document: Viewed
[2018-11-12] MEDS ORDERED: Labetalol IV* 200 MG in NS 0.9% 250 ML* 160 ML IVPB ONE ×2 (07:35→07:49)
[2018-11-12] MEDS ORDERED: Iodixanol* (CONTRAST) 320 MG/ML 100 ML SDV IV ONE (07:43)
[2018-11-12 07:45] LABS: Albumin 3.5 g/dL (3.2-5.2); Calcium 9.4 mg/dL (8.6-10.3); Potassium 4.1 mmol/L (3.5-5.0); Total Bilirubin 0.4 mg/dL (0.2-1.0)
[2018-11-12 07:51] LABS: Albumin/Globulin Ratio 0.5 (1-3); BUN/Creatinine Ratio 17.6 (8-20); EGFR African American 99.1 (>60); EGFR Non-African American 81.9 (>60); Globulin 6.4 g/dL (2-4); HDL Cholesterol 46.1 mg/dL; Total Protein 9.9 g/dL (6.4-8.9)
[2018-11-12 08:19] VITALS: BP 144/104
== END 2018-11-12 09:10 | disposition short-term general hospital (02) ==
LOC: ED 06:23
DX: I63.9 Cerebral infarction, unspecified (principal); I61.8 Other nontraumatic intracerebral hemorrhage; R29.708 NIHSS score 8; M47.892 Other spondylosis, cervical region; R94.02 Abnormal brain scan; Z87.01 Personal history of pneumonia (recurrent)
CPT/HCPCS: 36415; 70450; 70496; 70498; 71045; 72125; 80053; 80061; 83605; 84484; 85025; 85610; 85730; 86850; 86900; 86901; 93005; 96365; 96367; 96375; 96376; 99285; J1953; J2150; J2270; J2405; Q9967

== ENCOUNTER 2019-09-29 19:00 | Observation (INO) | payer OTHER ==
[2019-09-29] MEDS ORDERED: NS 0.9% 1000 ML** 1,000 ML IV ONE (19:12)
--- NOTE | 2019-09-29 19:18 | ED ---
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 Patient was eating dinner with his significant other when he lost consciousness for 1 minute. Patient did not fall or hit his head. Earlier this morning, patient had a mild headache, as well as nausea, diaphoresis, and abdominal pain. He had one episode of heavy diarrhea this afternoon. Leading up to syncope, patient experienced heavier diaphoresis and headache. After the syncopal episode, patient's headache remained and he had trouble with speech. His speech quickly returned to normal after several minutes but his headache remains. He denies chest pain or SOB. 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 No history of DM, CAD, HTN, or HLD. No family history. Never smoked tobacco. - History Of Current Complaint Time Seen by Provider: 09/29/19 19:02 Hx Obtained From: Patient Onset/Duration: Sudden Onset, Lasting Minutes, Resolved Timing: Minutes Context: Witnessed, Loss Of Consciousness Activity At Onset: At Rest Associated Head Trauma: No Aggravating Factor(s): Nothing Alleviating Factor(s): Spontaneous Resolution Associated Signs And Symptoms: Diarrhea, Diaphoresis, Head Trauma (Remote) - 1 year ago hemorrhage, Headache - Allergies/Home Medications Allergies/Adverse Reactions: Allergies Allergy/AdvReac Type Severity Reaction Status Date / Time No Known Allergies Allergy Verified 09/13/18 08:53 Home Medications: Home Medications Aspirin EC TAB* [Ecotrin EC Low Dose 81 MG*] 81 mg PO QAM 09/29/19 [History Confirmed 09/29/19] Folic Acid TAB* [Folvite TAB*] 1 mg PO DAILY 09/29/19 [History Confirmed ] Multivitamins/Minerals TAB* [Theragran/minerals TAB*] 1 tab PO DAILY 09/29/19 [ History Confirmed 09/29/19] Omeprazole CAP (NF) [Prilosec CAP* 20 MG] 20 mg PO QAM 09/29/19 [History Confirmed 09/29/19] Polyethylene Glycol 3350* [Miralax (17 GM DOSE MARINO)] 17 gm PO Q3D PRN 09/29/19 [ History Confirmed 09/29/19] Pravastatin (NF) [Pravachol (NF)] 10 mg PO QPM 09/29/19 [History Confirmed 09/28] Timolol 0.25% OPHTH.SOLN* [Timoptic Ophth.soln 0.25%*] 1 drop OPHTHALMIC BID [History Confirmed 09/29/19] lisinopriL [Lisinopril] 20 mg PO QPM 09/29/19 [History Confirmed 09/29/19] levETIRAcetam [Keppra] 500 mg PO BID 30 Days #60 tablet 09/30/19 [Rx] PMH/Surg Hx/FS Hx/Imm Hx Cardiovascular History: Denies: Hx Hypertension Respiratory History: Reports: Hx Pneumonia Sensory History: Reports: Hx Contacts or Glasses Denies: Hx Deafness, Hx Hearing Aid Opthamlomology History: Reports: Hx Contacts or Glasses Neurological History: Reports: Hx CVA - hemorrhagic - Surgical History Surgery Procedure, Year, and Place: DOUBLE HERNIA REPAIR, APPENDECTOMY, TONSILLECTOMY - Family History Known Family History: Positive: None Negative: Blood Disorder - Social History Alcohol Use: Occasionally Substance Use Type: Reports: None Smoking Status (MU): Never Smoked Tobacco Review of Systems Positive: Skin Diaphoresis Negative: Chest Pain Negative: Shortness Of Breath Positive: Abdominal Pain, Diarrhea, Nausea Positive: Headache, Syncope All Other Systems Reviewed And Are Negative: Yes Physical Exam - Summary Physical Exam Summary: Appearance: Well-appearing, Well-nourished, lying in bed comfortably Skin: Warm, dry, no obvious rash Eyes: sclera anicteric, no conjunctival pallor HENT: mucous membranes moist, pharynx appears normal Neck: Supple, nontender Respiratory: Clear to auscultation, no signs of respiratory distress Cardiovascular: Normal S1, S2. No murmurs. Normal distal pulses in tibial and radial bilaterally. Abdomen: Soft, nontender, normal active bowel sounds present Musculoskeletal: Normal, Strength/ROM Intact, Motor function in all 4 extremities is normal and symmetric. There is no rigidity or tremor noted. Neurological: A&Ox3, awake and alert, mentation is normal, speech is fluent and appropriate, Level of consciousness nml. The patient is alert and oriented. Cranial nerves are grossly intact. Gaze is conjugate and without nystagmus. Peripheral vision is intact to confrontation. There are no gross sensory abnormalities to light touch. There is no truncal or fine motor ataxia. Gait is normal. NIH: 0 Psychiatric: affect is normal, does not appear anxious or depressed Triage Information Reviewed: Yes Vital Signs Reviewed: Yes - [place] Coma Scale Best Eye Response: 4 - Spontaneous Best Motor Response: 6 - Obeys Commands Best Verbal Response: 5 - Oriented Coma Scale Total: 15 Procedures - Sedation Patient Received Moderate/Deep Sedation with Procedure: No Diagnostics - Laboratory Result Diagrams: 09/30/19 05:45 09/30/19 05:45 Lab Statement: Any lab studies that have been ordered have been reviewed, and results considered in the medical decision making process. - CT Brain CT CT Interpretation Completed By: Radiologist Summary of CT Findings: IMPRESSION: 1. The previously seen hematoma in the right temporal and parietal lobe is resolved and there is now encephalomalacia in this region. 2. There is age-related diffuse cerebral and cerebellar volume loss and chronic microvascular ischemic disease. 3. There are new postoperative changes right temporal, frontal and parietal craniectomy with cranioplasty. 4. No acute intracranial pathology. An ED physician has reviewed this scan. - Ultrasound Abdominal Arterial Study Ultrasound Interpretation Completed By: Radiologist Summary of Ultrasound Findings: No abdominal arterial aneurism. An ED physician has reviewed this report. - EKG 1923 Cardiac Rate: NL - 89 bpm EKG Rhythm: Sinus Rhythm ST Segment: Normal Ectopy: None Summary of EKG Findings: NSR at 89 BPM, P waves, QRS complex, and T waves are within normal limits, T waves and intervals are normal, no ischemic changes. No STEMI. This is a normal EKG. Dr. Valdes has reviewed and interpreted this EKG. National Institutes Of Health - NIH Scale Level of Consciousness: Alert/Keenly Responsive Ask Patient the Month and His/Her Age: Both Correct Ask Pt to Open/Close Eyes and Type Bar And Segment Assembler/Release Non-Paretic Hand: Both Correctly Best Gaze (Only Horizontal Eye Movement): Normal Visual Field Testing: No Visual Loss Facial Paresis-Pt to Smile & Close Eyes or Grimace Symmetry: Normal/Symmetrical Motor Function - Right Arm: No Drift-Holds 10 Seconds Motor Function - Left Arm: No Drift-Holds 10 Seconds Motor Function - Right Leg: No Drift-Holds 10 Seconds Motor Function - Left Leg: No Drift-Holds 10 Seconds Limb Ataxia-Must be out of Proportion to Weakness Present: Absent Sensory (Use Pinprick to Test Arms/Legs/Trunk/Face): Normal Best Language (Describe Picture, Name Items): No Aphasia Dysarthria (Read Several Words): Normal Extinction and Inattention: No Abnormality Total Score: 0 Course/Dx Course Of Treatment: 74 year old male presents to the ED 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 Patient was eating dinner with his significant other when he lost consciousness for 1 minute. Patient did not fall or hit his head. Earlier this morning, patient had a mild headache, as well as nausea, diaphoresis, and abdominal pain. He had one episode of heavy diarrhea this afternoon. Leading up to syncope, patient experienced heavier diaphoresis and headache. After the syncopal episode, patient's headache remained and he had trouble with speech. His speech quickly returned to normal after several minutes but his headache remains. He denies chest pain or SOB. 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 No history of DM, CAD, HTN, or HLD. No family history. Never smoked tobacco. Physical exam is normal. GCS 15, NIH 0. NSR at 89 BPM, P waves , QRS complex, and T waves are within normal limits, T waves and intervals are normal, no ischemic changes. No STEMI. This is a normal EKG. Abdominal arterial US shows no abdominal arterial aneurism. Brain CT Impression: 1. The previously seen hematoma in the right temporal and parietal lobe is resolved and there is now encephalomalacia in this region. 2. There is age-related diffuse cerebral and cerebellar volume loss and chronic microvascular ischemic disease. 3. There are new postoperative changes right temporal, frontal and parietal craniectomy with cranioplasty. 4. No acute intracranial pathology. Laboratory results include RBC 3.56, HGB 11.6, HCT 34, MCH 33, creatinine 1.31, glucose 107, total protein 10.4, globulin 7.2, and albumin/globulin ratio 0.4. TSH is 3.9. Diagnosis is syncope. Hospitalist Dr. Olson accepts patient for admission as observation. Patient understands and agrees with plan. - Diagnoses Provider Diagnoses: Syncope - Physician Notifications Discussed Care of Patient With: Primo Olson - Hospitalist Time Discussed With Above Provider: 21:01 Instructed by Provider To: Admit As Observation - Dr. Olson accepts patient for admission as observation at 2100. Discharge ED - Sign-Out/Discharge Documenting (check all that apply): Patient Departure - admit All imaging exams completed and their final reports reviewed: Yes - Discharge Plan Condition: Stable Disposition: ADMITTED TO [facility] - Billing Disposition and Condition Condition: STABLE Disposition: Admitted to [facility] - Attestation Statements Document Initiated by Hafsae: Yes Documenting Scribe: Kalia Edmond Provider For Whom Tsering is Documenting (Include Credential): Dr. Ricky Valdes Scribe Attestation: Kalia Santiago scribed for Dr. Ricky Valdes on 10/03/19 at 1916. Scribe Documentation Reviewed: Yes Provider Attestation: The documentation as recorded by the Kalia christy accurately reflects the service I personally performed and the decisions made by me, Dr. Ricky Valdes Status of Scribe Document: Viewed
[2019-09-29 19:53] LABS: ABS Eosinophils 0.1 10^3/ul (0-0.6); ABS Lymphocytes 1.7 10^3/ul (1.0-4.8); ABS Monocytes 0.8 10^3/ul (0-0.8); ABS Neutrophils 5.6 10^3/ul (1.5-7.7); Hematocrit 34 % (42-52); Hemoglobin 11.6 g/dL (14.0-18.0); Lymphocyte % 20.8 %; Mean Corpuscular HGB Conc 35 g/dL (31-36); Mean Corpuscular Hemoglobin 33 pg (27-31); Mean Corpuscular Volume 94 fL (80-94); Mean Platelet Volume 7.9 fL (7.4-10.4); Nucleated Red Blood Cells % 0.1; Platelet Count 206 10^3/uL (150-450); Red Blood Count 3.56 10^6 /uL (4.18-5.48); Red Cell Distribution Width 14 % (10-15); White Blood Count 8.2 10^3/uL (3.5-10.8)
[2019-09-29 20:11] LABS: Albumin 3.2 g/dL (3.2-5.2); Albumin/Globulin Ratio 0.4 (1-3); BUN/Creatinine Ratio 15.3 (8-20); Calcium 9.6 mg/dL (8.6-10.3); EGFR African American 64.9 (>60); EGFR Non-African American 53.6 (>60); Globulin 7.2 g/dL (2-4); Potassium 4.2 mmol/L (3.5-5.0); Total Bilirubin 0.4 mg/dL (0.2-1.0); Total Protein 10.4 g/dL (6.4-8.9)
[2019-09-29 20:13] LABS: Troponin I 0.01 ng/mL (<0.03)
[2019-09-29 20:50] LABS: TSH (Thyroid Stimulating Horm) 3.9 mcIU/mL (0.34-5.60)
[2019-09-29] MEDS ORDERED: Polyethylene Glycol 3350* 17 GM PACKET PO PRN (21:00)
--- OUTSIDE RECORDS SUMMARY | 2019-09-29 21:29 | XMS REPORT ---
:1945 Author Organization [facility] Care Team Providers Name Role Phone Unavailable Unavailable Unavailable Problems Condition Condition Condition Status Onset Resolution Last Treating Comments Name Details Category Date Date Treatment Clinician Date Hemiplegia Hemiplegia Diagnosis Active Jameel and and 03-14 Anguish hemiparesis hemiparesis [id number] following following nontraumati nontraumati c c subarachnoi subarachnoi d d hemorrhage hemorrhage affecting affecting left left non-dominan non-dominan t side t side Dysarthria Dysarthria Diagnosis Active Jameel following following 03-14 Anguish nontraumati nontraumati [id number] c c subarachnoi subarachnoi d d hemorrhage hemorrhage Dysphagia Dysphagia Diagnosis Active Jameel following following 03-14 Anguish nontraumati nontraumati [id number] c c subarachnoi subarachnoi d d hemorrhage hemorrhage Dysphagia, Dysphagia, Diagnosis Active Jameel unspecified unspecified 03-14 Anguish [id number] Essential Essential Diagnosis Active Jameel (primary) (primary) 07-06 Anguish hypertensio hypertensio [id number] n n 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 03-14 Anguish tis, tis, [id number] unspecified unspecified site 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 Jameel (current) (current) Anguish use of use of [id number] aspirin aspirin Personal Personal Diagnosis Active Jameel history of history of Anguish other other [id number] malignant malignant neoplasm of neoplasm of skin skin Pain frequent Pain Mgmt Resolve 2019-04-08 Jasmyn pain d 03-14 10:00:00 (Brian) 09:30: Meléndez 00 [id number] Cardio edema Cardiovasc Resolve 2019-04-12 Jasmyn ular d 03-14 09:25:00 (Brian) 09:30: Meléndez 00 [id number] Respiratory dyspnea Respirator Resolve 2019-04-08 Jasmyn present y d 03-14 10:00:00 (Brian) 09:30: Meléndez 00 [id number] Endo/Javier anti-coagul Endo/Javier Resolve 2019-04-12 Jasmyn ation d 03-14 09:25:00 (Brian) therapy 09:30: Meléndez [id number] Elimination urinary Eliminatio Resolve 2019-03-17 Jasmyn incontinenc n d 03-14 09:00:00 (Brian) e 09:30: Meléndez [id number] Neuro confusion Neuro/Emot Resolve 2019-04-26 Jasmyn present ion d 03-14 09:15:00 (Brian) 09:30: Meléndez 00 [id number] Neuro impaired Neuro/Emot Resolve 2019-04-26 Jasmyn decision-ma ion d 03-14 09:15:00 (Brian) luz marina 09:30: Meléndez [id number] Neuro memory Neuro/Emot Resolve 2019-04-26 Jasmyn deficit ion d 03-14 09:15:00 (Brian) needing 09:30: Meléndez supervision 00 [id number] Activity ADL Activity Resolve 2019-04-26 Jasmyn assistance d 03-14 09:15:00 (Brian) required 09:30: Meléndez [id number] Activity self-care Activity Resolve 2019-04-26 Jasmyn deficit d 03-14 09:15:00 (Brian) 09:30: Meléndez [id number] Safety cannot be Safety Resolve 2019-04-26 Jasmny left alone d 03-14 09:15:00 (Brian) 09:30: Meléndez [id number] Safety knowledge/s Safety Resolve 2019-04-26 Jasmyn kill d 03-14 09:15:00 (Brian) deficit: pt 09:30: Meléndez 00 [id number] Safety fall risk Safety Resolve 2019-04-26 Jasmyn factor d 03-14 09:15:00 (Brian) present 09:30: Meléndez [id number] Safety risk for Safety Resolve 2019-04-26 Jasmyn hospitaliza d 03-14 09:15:00 (Brian) tion 09:30: Meléndez 00 [id number] Medication oral med Meds Resolve 2019-04-08 Jasmyn assistance d 03-14 10:00:00 (Brian) required 09:30: Meléndez [id number] Medication potential Meds Resolve 2019-04-08 Jasmyn clinically d 03-14 10:00:00 (Brian) significant 09:30: Meléndez medication 00 [id number] issue Musculoskel transfer Musculoske Resolve 2019-04-08 Jasmyn etal assistance letal d 03-14 10:00:00 (Brian) required 09:30: Meléndez [id number] Musculoskel requires Musculoske Resolve 2019-04-08 Jasmyn etal human letal d 03-14 10:00:00 (Brian) assist to 09:30: Meléndez leave home 00 [id number] Nutrition nutritional Nutrition Resolve 2019-04-08 Jameel restriction d 03-14 10:00:00 Anguish s 11:42: [id number] 00 Balance/End balance/recooperer PT/OT: Active Jameel urance rdination Balance/En 03-14 Anguish deficit durance 11:42: [id number] 00 Gait/Locomo gait PT/OT: Active Jameel tion deficit Gait/Locom 03-14 Anguish problems otion 11:42: [id number] 00 Respiratory knowledge/s Respirator Resolve 2019-04-08 Jameel kill y d 03-17 10:00:00 Anguish deficit: cg 11:40: [id number] 00 Elimination knowledge/s Eliminatio Resolve 2019-04-08 Jameel kill n d 03-17 10:00:00 Anguish deficit: cg 11:40: [id number] 00 Integument skin Integument Resolve 2019-04-12 ANUPAMA integrity d 03-21 09:25:00 ROSA MS-MARVEL risk 13:00: [id number] Neuro anxiety Neuro/Emot Resolve 2019-04-26 ANUPAMA present ion d 03-21 09:15:00 ROSA MS-MARVEL 13:00: [id number] Integument surgical Integument Resolve 2019-04-12 Jasmyn wound d 04-02 09:25:00 (Brian) present 12:30: Meléndez [id number] Safety can be left Safety Resolve 2019-04-26 Jasmyn alone for d - 09:15:00 (Brian) only short 12:30: Meléndez 00 [id number] Elimination urinary Eliminatio Resolve 2018-072019-04-08 Teresa incontinenc n d 0-04 10:00:00 Ingrahm e 10:00: [id number] 00 Nutrition nutritional Nutrition Resolve 2018-072019-04-26 Teresa restriction d 0-08 09:15:00 Ingrahm s 09:25: [id number] Safety risk for Safety Resolve 2018-072019-07-07 Merari hospitaliza d 0-23 09:05:00 Bill Jose Alejandro tion 09:00: [id number] 00 Nutrition nutritional Nutrition Active 2018-07 Jameel restriction 0-24 Anguish s 10:26: [id number] Activity ADL Activity Active 2018-07 Jameel assistance 1-07 Anguish required 10:30: [id number] 00 Activity self-care Activity Active 2018-07 Jameel deficit 1-07 Anguish 10:30: [id number] 00 Safety fall risk Safety Resolve 2018-072019-07-07 Jameel factor d 1-07 09:05:00 Anguish present 10:30: [id number] 00 Safety can be left Safety Active 2018-07 Jameel alone for 1-07 Anguish only short 10:30: [id number] periods 00 Musculoskel transfer Musculoske Active 2018-07 Jameel etal assistance letal 1-07 Anguish required 10:30: [id number] 00 Musculoskel requires Musculoske Active 2018-07 Jameel etal human letal 1-07 Anguish assist to 10:30: [id number] leave home 00 Gait/Locomo gait PT/OT: Active 2018-07 Jameel tion assistive Gait/Locom 1-07 Anguish problems device otion 10:30: [id number] present 00 Medication oral med Meds Active 2018-07 Jameel assistance 2-12 Anguish required 12:00: [id number] 00 Integument skin Integument Active Jameel integrity 1-02 Anguish risk 09:05: [id number] 00 Elimination urinary Eliminatio Active Jameel incontinenc n 07-07 Anguish e 09:05: [id number] 00 Bed transfer PT/OT: Bed Active Jameel Mobility/Tr deficit: Mobility/T 07-07 Luis Enriquejuju jack sit/stand ransfer 09:05: [id number] 00 Bed transfer PT/OT: Bed Active Jameel Mobility/Tr deficit: Mobility/T 07-07 Surjit herringfer standing ransfer 09:05: [id number] pivot 00 Bed transfer PT/OT: Bed Active Jameel Mobility/Tr deficit: Mobility/T 07-07 Surjit jack toilet/comm ransfer 09:05: [id number] ode 00 Bed transfer PT/OT: Bed Active Jmaeel Mobility/Tr deficit: Mobility/T 07-07 Surjit jack shower/tub ransfer 09:05: [id number] 00 Safety risk for Safety Active [facility] 07-20 [facility] 09:15: [id number] 00 Allergies, Adverse Reactions, Alerts Allergy Allergy Status Severity Reaction(s) Onset Inactive Treating Comments Name Type Date Date Clinician Unknown None Active Unknown None Unknown No Known Allergies For This Patient Medications Ordered Filled Start Stop Current Ordering Indication Dosage Frequency Signature Comments Components Medication Medication Date Date Medication? Clinician (SIG) Name Name modafinil modafinil 2019- No Jammie Unknown Unknown 200 mg 200 mg 03-14 Julio Cesar POLLOCK tablet tablet multivitami multivitami No Jammie Unknown Unknown n capsule n capsule 03-14 Julio Cesar POLLOCK pravastatin pravastatin No Jammie Unknown Unknown 10 mg 10 mg 03-14 Julio Cesar POLLOCK tablet tablet timolol timolol No [place] Unknown Unknown 0.25 % eye 0.25 % eye 03-14 Julio Cesar POLLOCK drops drops aspirin 325 aspirin 325 2018- No [place] Unknown Unknown mg tablet mg tablet 03-14 Julio Cesar POLLOCK omeprazole omeprazole No Jammie Unknown Unknown 20 mg 20 mg 03-14 Julio Cesar POLLOCK capsule,del capsule,del ayed ayed release release lisinopril lisinopril No Jammie Unknown Unknown 20 mg 20 mg 03-14 ,Julio Cesar tablet tablet polyethylen polyethylen No [place] Unknown Unknown e glycol e glycol 03-14 ,Julio Cesar 3350 17 3350 17 gram/dose gram/dose oral powder oral powder acetaminoph acetaminoph No Jammie Unknown Unknown en 325 mg en 325 mg 03-14 MD,Julio Cesar capsule capsule modafinil modafinil 2018-07- No Jammie Unknown Unknown 200 mg 200 mg 0- MD,Julio Cesar tablet tablet modafinil modafinil 2018-07- No [place] Unknown Unknown 200 mg 200 mg 0- MD,Julio Cesar tablet tablet ferrous ferrous 2018-07- No [place] Unknown Unknown gluconate gluconate 0- 12- MD,Julio Cesar 324 mg 324 mg (37.5 mg (37.5 mg iron) iron) tablet tablet Aspirin Low Aspirin Low 2018-07 Yes [place] Unknown Unknown Dose 81 mg Dose 81 mg 1-05 MD,Julio Cesar tablet,onofre tablet,onofre yed release yed release omeprazole omeprazole No Jammie Unknown Unknown 20 mg 20 mg 03-14 MD,Julio Cesar capsule,del capsule,del ayed ayed release release pravastatin pravastatin No Jammie Unknown Unknown 10 mg 10 mg 03-14 ,Julio Cesar tablet tablet timolol timolol No [place] Unknown Unknown maleate maleate 03-14 Julio Cesar POLLOCK 0.25 % eye 0.25 % eye drops drops lisinopril lisinopril No [place] Unknown Unknown 40 mg 40 mg 03-14 ,Julio Cesar tablet tablet ferrous ferrous 2018-07 Yes Jammie Unknown Unknown gluconate gluconate 08-29 MD,Julio Cesar 324 mg 324 mg (37.5 mg (37.5 mg iron) iron) tablet tablet Vital Signs Vital Name Observation Time Observation Value Comments SYSTOLIC mm[Hg] 2019-08-02 18:10:06 130 mm[Hg] mm[Hg] Method: Sit SYSTOLIC mm[Hg] 2019-04-04 18:08:06 104 mm[Hg] mm[Hg] Method: Stand DIASTOLIC mm[Hg] 2019-08-02 18:10:06 80 mm[Hg] mm[Hg] Method: Sit DIASTOLIC mm[Hg] 2019-04-04 18:08:06 66 mm[Hg] mm[Hg] Method: Stand PULSE 2019-08-02 18:10:06 88 /min /min TEMP 2019-08-02 18:10:06 98.3 [degF] Procedures This patient has no known procedures. Results This patient has no known results.
--- OUTSIDE RECORDS SUMMARY | 2019-09-29 21:29 | XMS REPORT ---
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-14 Anguish hemiparesis hemiparesis [id number] following following nontraumati nontraumati c c subarachnoi subarachnoi d d hemorrhage hemorrhage affecting affecting left left non-dominan non-dominan t side t side Dysarthria Dysarthria Diagnosis Active Jameel following following 03-14 Anguish nontraumati nontraumati [id number] c c subarachnoi subarachnoi d d hemorrhage hemorrhage Dysphagia Dysphagia Diagnosis Active Jameel following following 03-14 Anguish nontraumati nontraumati [id number] c c subarachnoi subarachnoi d d hemorrhage hemorrhage Dysphagia, Dysphagia, Diagnosis Active Jameel unspecified unspecified 03-14 Anguish [id number] Essential Essential Diagnosis Active Jameel (primary) (primary) 07-06 Anguish hypertensio hypertensio [id number] n n 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 03-14 Anguish tis, tis, [id number] unspecified 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 site 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) (current) Anguish use of use of [id number] aspirin aspirin Personal Personal Diagnosis Active Jameel history of history of Anguish other other [id number] malignant malignant neoplasm of neoplasm of skin skin Pain frequent Pain Mgmt Resolve 2019-04-08 Jasmyn pain d 03-14 10:00:00 (Brian) 09:30: Meléndez 00 [id number] Cardio edema Cardiovasc Resolve 2019-04-12 Jasmyn ular d 03-14 09:25:00 (Brian) 09:30: Meléndez 00 [id number] Respiratory dyspnea Respirator Resolve 2019-04-08 Jasmyn present y d 03-14 10:00:00 (Brian) 09:30: Meléndez 00 [id number] Endo/Javier anti-coagul Endo/Javier Resolve 2019-04-12 Jasmyn ation d 03-14 09:25:00 (Brian) therapy 09:30: Meléndez [id number] Elimination urinary Eliminatio Resolve 2019-03-17 Jasmyn incontinenc n d 03-14 09:00:00 (Brian) e 09:30: Meléndez [id number] Neuro confusion Neuro/Emot Resolve 2019-04-26 Jasmyn present ion d 03-14 09:15:00 (Brian) 09:30: Meléndez 00 [id number] Neuro impaired Neuro/Emot Resolve 2019-04-26 Jasmyn decision-ma ion d 03-14 09:15:00 (Brian) luz marina 09:30: Meléndez [id number] Neuro memory Neuro/Emot Resolve 2019-04-26 Jasmyn deficit ion d 03-14 09:15:00 (Brian) needing 09:30: Meléndez supervision 00 [id number] Activity ADL Activity Resolve 2019-04-26 Jasmyn assistance d 03-14 09:15:00 (Brian) required 09:30: Meléndez [id number] Activity self-care Activity Resolve 2019-04-26 Jasmyn deficit d 03-14 09:15:00 (Brian) 09:30: Meléndez [id number] Safety cannot be Safety Resolve 2019-04-26 Jasmyn left alone d 03-14 09:15:00 (Brian) 09:30: Meléndez [id number] Safety knowledge/s Safety Resolve 2019-04-26 Jasmyn kill d 03-14 09:15:00 (Brian) deficit: pt 09:30: Meléndez 00 [id number] Safety fall risk Safety Resolve 2019-04-26 Jasmyn factor d 03-14 09:15:00 (Brian) present 09:30: Meléndez [id number] Safety risk for Safety Resolve 2019-04-26 Jasmyn hospitaliza d 03-14 09:15:00 (Brian) tion 09:30: Meléndez 00 [id number] Medication oral med Meds Resolve 2019-04-08 Jasmyn assistance d 03-14 10:00:00 (Brian) required 09:30: Meléndez 00 [id number] Medication potential Meds Resolve 2019-04-08 Jasmyn clinically d 03-14 10:00:00 (Brian) significant 09:30: Meléndez medication 00 [id number] issue Musculoskel transfer Musculoske Resolve 2019-04-08 Jasmyn etal assistance letal d 03-14 10:00:00 (Brian) required 09:30: Meléndez [id number] Musculoskel requires Musculoske Resolve 2019-04-08 Jasmyn etal human letal d 03-14 10:00:00 (Brian) assist to 09:30: Meléndez leave home 00 [id number] Nutrition nutritional Nutrition Resolve 2019-04-08 Jameel restriction d 03-14 10:00:00 Anguish s 11:42: [id number] 00 Balance/End balance/hospital education coordinator PT/OT: Resolve 2019-08-08 Jameel urance rdination Balance/En d 03-14 11:05:00 Anguish deficit durance 11:42: [id number] 00 Gait/Locomo gait PT/OT: Resolve 2019-08-04 Jameel tion deficit Gait/Locom d 03-14 09:08:00 Anguish problems otion 11:42: [id number] 00 Respiratory knowledge/s Respirator Resolve 2019-04-08 Jameel kill y d 03-17 10:00:00 Anguish deficit: cg 11:40: [id number] 00 Elimination knowledge/s Eliminatio Resolve 2019-04-08 Jameel kill n d 03-17 10:00:00 Anguish deficit: cg 11:40: [id number] 00 Integument skin Integument Resolve 2019-04-12 ANUPAMA integrity d 03-21 09:25:00 ROSA MS-MARVEL risk 13:00: [id number] Neuro anxiety Neuro/Emot Resolve 2019-04-26 ANUPAMA present ion d 03-21 09:15:00 APPLECOLEMAN 13:00: [id number] 00 Integument surgical Integument Resolve 2019-04-12 Jasmyn wound d 04-02 09:25:00 (Brian) present 12:30: Meléndez 00 [id number] Safety can be left Safety Resolve 2019-04-26 Jasmyn alone for d 04-02 09:15:00 (Brian) only short 12:30: Meléndez periods 00 [id number] Elimination urinary Eliminatio Resolve 2018-072019-04-08 Teresa incontinenc n d 0-04 10:00:00 Ingrahm e 10:00: [id number] 00 Nutrition nutritional Nutrition Resolve 2018-072019-04-26 Teresa restriction d 0-08 09:15:00 Ingrahm s 09:25: [id number] 00 Safety risk for Safety Resolve 2018-072019-07-07 Merari hospitaliza d 0-23 09:05:00 Bill Jose Alejandro tion 09:00: [id number] 00 Nutrition nutritional Nutrition Resolve 2018-072019-08-04 Jameel restriction d 0-24 09:08:00 Anguish s 10:26: [id number] 00 Activity ADL Activity Resolve 2018-072019-08-08 Jameel assistance d 07-12 11:05:00 Anguish required 10:30: [id number] 00 Activity self-care Activity Resolve 2018-072019-08-08 Jameel deficit d 07-12 11:05:00 Anguish 10:30: [id number] 00 Safety fall risk Safety Resolve 2018-072019-07-07 Jameel factor d 07-12 09:05:00 Anguish present 10:30: [id number] 00 Safety can be left Safety Resolve 2018-072019-08-04 Jameel alone for d 07-12 09:08:00 Anguish only short 10:30: [id number] periods 00 Musculoskel transfer Musculoske Resolve 2018-072019-08-08 Jameel etal assistance letal d 07-12 11:05:00 Anguish required 10:30: [id number] 00 Musculoskel requires Musculoske Resolve 2018-072019-08-08 Jameel etal human letal d 07-12 11:05:00 Anguish assist to 10:30: [id number] leave home 00 Gait/Locomo gait PT/OT: Resolve 2018-072019-08-04 Jameel tion assistive Gait/Locom d - 09:08:00 Anguish problems device otion 10:30: [id number] present 00 Medication oral med Meds Resolve 2018-072019-08-04 Jameel assistance d - 09:08:00 Anguish required 12:00: [id number] 00 Integument skin Integument Active Jameel integrity 07-07 Anguish risk 09:05: [id number] 00 Elimination urinary Eliminatio Resolve 2019-08-04 Jameel incontinenc n d 07-07 09:08:00 Anguish e 09:05: [id number] 00 Bed transfer PT/OT: Bed Resolve 2019-08-08 Jameel Mobility/Tr deficit: Mobility/T d 07-07 11:05:00 Surjit ansfer sit/stand ransfer 09:05: [id number] 00 Bed transfer PT/OT: Bed Resolve 2019-08-08 Jameel Mobility/Tr deficit: Mobility/T d - 11:05:00 Surjit herringfer standing ransfer 09:05: [id number] pivot 00 Bed transfer PT/OT: Bed Resolve 2019-08-08 Jameel Mobility/Tr deficit: Mobility/T d - 11:05:00 Surjit herringfer toilet/comm ransfer 09:05: [id number] ode 00 Bed transfer PT/OT: Bed Resolve 2019-08-08 Jameel Mobility/Tr deficit: Mobility/T d 07-07 11:05:00 Surjit ansfer shower/tub ransfer 09:05: [id number] 00 Safety risk for Safety Resolve 2019-08-08 Merari hospitaliza d 1-15 11:05:00 Bill Jose Alejandro tion 09:15: [id number] 00 Respiratory knowledge/s Respirator Active Merari pelayo y 08-08 Bill Jose Alejandro deficit: cg 11:05: [id number] 00 Allergies, Adverse Reactions, Alerts Allergy Allergy Status Severity Reaction(s) Onset Inactive Treating Comments Name Type Date Date Clinician Unknown None Active Unknown None Unknown No Known Allergies For This Patient Medications Ordered Filled Start Stop Current Ordering Indication Dosage Frequency Signature Comments Components Medication Medication Date Date Medication? Clinician (SIG) Name Name modafinil modafinil 2018- No Jammie Unknown Unknown 200 mg 200 mg 03-14 Julio Cesar POLLOCK tablet tablet multivitami multivitami No [place] Unknown Unknown n capsule n capsule 03-14 Julio Cesar POLLOCK pravastatin pravastatin No Jammie Unknown Unknown 10 mg 10 mg 03-14 Julio Cesar POLLOCK tablet tablet timolol timolol No [place] Unknown Unknown 0.25 % eye 0.25 % eye 03-14 Julio Cesar POLLOCK drops drops aspirin 325 aspirin 325 2018- No Jammie Unknown Unknown mg tablet mg tablet 03-14 Julio Cesar POLLOCK omeprazole omeprazole No [place] Unknown Unknown 20 mg 20 mg 03-14 ,Julio Cesar capsule,del capsule,del ayed ayed release release lisinopril lisinopril No Jammie Unknown Unknown 20 mg 20 mg 03-14 Julio Cesar POLLOCK tablet tablet polyethylen polyethylen No [place] Unknown Unknown e glycol e glycol 03-14 Julio Cesar POLLOCK 3350 17 3350 17 gram/dose gram/dose oral powder oral powder acetaminoph acetaminoph No Jammie Unknown Unknown en 325 mg en 325 mg 03-14 Julio Cesar POLLOCK capsule capsule modafinil modafinil 2018-07- No [place] Unknown Unknown 200 mg 200 mg 04-26 Julio Cesar POLLOCK tablet tablet modafinil modafinil 2018-07- No Jammie Unknown Unknown 200 mg 200 mg - Julio Cesar POLLOCK tablet tablet ferrous ferrous 2018-07- No Jammie Unknown Unknown gluconate gluconate - Julio Cesar POLOLCK 324 mg 324 mg (37.5 mg (37.5 mg iron) iron) tablet tablet Aspirin Low Aspirin Low 2018-07 No Jammie Unknown Unknown Dose 81 mg Dose 81 mg 07-10 Julio Cesar POLLOCK tablet,onofre tablet,onofre yed release yed release omeprazole omeprazole No Jammie Unknown Unknown 20 mg 20 mg 03-14 ,Julio Cesar capsule,del capsule,del ayed ayed release release pravastatin pravastatin No Jammie Unknown Unknown 10 mg 10 mg 03-14 Julio Cesar POLLOCK tablet tablet timolol timolol No Jammie Unknown Unknown maleate maleate 03-14 Julio Cesar POLLOCK 0.25 % eye 0.25 % eye drops drops lisinopril lisinopril No [place] Unknown Unknown 40 mg 40 mg 03-14 Julio Cesar POLLOCK tablet tablet ferrous ferrous 2018-07 Yes [place] Unknown Unknown gluconate gluconate 08-29 Julio Cesar POLLOCK 324 mg 324 mg (37.5 mg (37.5 mg iron) iron) tablet tablet Vital Signs Vital Name Observation Time Observation Value Comments SYSTOLIC mm[Hg] 2019-04-04 18:08:06 104 mm[Hg] mm[Hg] Method: Stand DIASTOLIC mm[Hg] 2019-04-04 18:08:06 66 mm[Hg] mm[Hg] Method: Stand TEMP 2019-08-09 18:10:13 98.2 [degF] Procedures This patient has no known procedures. Results This patient has no known results.
--- OUTSIDE RECORDS SUMMARY | 2019-09-29 21:29 | XMS REPORT ---
:1945 Author Organization [facility] Care Team Providers Name Role Phone Unavailable Unavailable Unavailable Problems Condition Condition Condition Status Onset Resolution Last Treating Comments Name Details Category Date Date Treatment Clinician Date Hemiplegia Hemiplegia Diagnosis Active Jameel and and 03-14 Anguish hemiparesis hemiparesis [id number] following following nontraumati nontraumati c c subarachnoi subarachnoi d d hemorrhage hemorrhage affecting affecting left left non-dominan non-dominan t side t side Dysarthria Dysarthria Diagnosis Active Jameel following following 03-14 Anguish nontraumati nontraumati [id number] c c subarachnoi subarachnoi d d hemorrhage hemorrhage Dysphagia Dysphagia Diagnosis Active Jameel following following 03-14 Anguish nontraumati nontraumati [id number] c c subarachnoi subarachnoi d d hemorrhage hemorrhage Dysphagia, Dysphagia, Diagnosis Active Jameel unspecified unspecified 03-14 Anguish [id number] Essential Essential Diagnosis Active Jameel (primary) (primary) 07-06 Anguish hypertensio hypertensio [id number] n n 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 03-14 Anguish tis, tis, [id number] 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 (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) (current) Anguish use of use of [id number] aspirin aspirin Personal Personal Diagnosis Active Jameel history of history of Anguish other other [id number] malignant malignant neoplasm of neoplasm of skin skin Pain frequent Pain Mgmt Resolve 2019-04-08 Jasmyn pain d 03-14 10:00:00 (Brian) 09:30: Meléndez 00 [id number] Cardio edema Cardiovasc Resolve 2019-04-12 Jasmyn ular d 03-14 09:25:00 (Brian) 09:30: Meléndez 00 [id number] Respiratory dyspnea Respirator Resolve 2019-04-08 Jasmyn present y d 03-14 10:00:00 (Brian) 09:30: Meléndez 00 [id number] Endo/Javier anti-coagul Endo/Javier Resolve 2019-04-12 Jasmyn ation d 03-14 09:25:00 (Brian) therapy 09:30: Meléndez [id number] Elimination urinary Eliminatio Resolve 2019-03-17 Jasmyn incontinenc n d 03-14 09:00:00 (Brian) e 09:30: Meléndez [id number] Neuro confusion Neuro/Emot Resolve 2019-04-26 Jasmyn present ion d 03-14 09:15:00 (Brian) 09:30: Meléndez 00 [id number] Neuro impaired Neuro/Emot Resolve 2019-04-26 Jasmyn decision-ma ion d 03-14 09:15:00 (Brian) luz marina 09:30: Meléndez [id number] Neuro memory Neuro/Emot Resolve 2019-04-26 Jasmyn deficit ion d 03-14 09:15:00 (Brian) needing 09:30: Meléndez supervision 00 [id number] Activity ADL Activity Resolve 2019-04-26 Jasmyn assistance d 03-14 09:15:00 (Brian) required 09:30: Meléndez [id number] Activity self-care Activity Resolve 2019-04-26 Jasmyn deficit d 03-14 09:15:00 (Brian) 09:30: Meléndez [id number] Safety cannot be Safety Resolve 2019-04-26 Jasmyn left alone d 03-14 09:15:00 (Brian) 09:30: Meléndez [id number] Safety knowledge/s Safety Resolve 2019-04-26 Jasmyn kill d 03-14 09:15:00 (Brian) deficit: pt 09:30: Meléndez 00 [id number] Safety fall risk Safety Resolve 2019-04-26 Jasmyn factor d 03-14 09:15:00 (Brian) present 09:30: Meléndez [id number] Safety risk for Safety Resolve 2019-04-26 Jasmyn hospitaliza d 03-14 09:15:00 (Brian) tion 09:30: Meléndez 00 [id number] Medication oral med Meds Resolve 2019-04-08 Jasmyn assistance d 03-14 10:00:00 (Brian) required 09:30: Meléndez 00 [id number] Medication potential Meds Resolve 2019-04-08 Jasmyn clinically d 03-14 10:00:00 (Brian) significant 09:30: Meléndez medication 00 [id number] issue Musculoskel transfer Musculoske Resolve 2019-04-08 Jasmyn etal assistance letal d 03-14 10:00:00 (Brian) required 09:30: Meléndez [id number] Musculoskel requires Musculoske Resolve 2019-04-08 Jasmyn etal human letal d 03-14 10:00:00 (Brian) assist to 09:30: Meléndez leave home 00 [id number] Nutrition nutritional Nutrition Resolve 2019-04-08 Jameel restriction d 03-14 10:00:00 Anguish s 11:42: [id number] 00 Balance/End balance/collection coordinator PT/OT: Active Jameel urance rdination Balance/En 03-14 Anguish deficit durance 11:42: [id number] 00 Gait/Locomo gait PT/OT: Resolve 2019-08-04 Jameel tion deficit Gait/Locom d 03-14 09:08:00 Anguish problems otion 11:42: [id number] 00 Respiratory knowledge/s Respirator Resolve 2019-04-08 Jameel kill y d 03-17 10:00:00 Anguish deficit: cg 11:40: [id number] 00 Elimination knowledge/s Eliminatio Resolve 2019-04-08 Jameel kill n d 03-17 10:00:00 Anguish deficit: cg 11:40: [id number] 00 Integument skin Integument Resolve 2019-04-12 ANUPAMA integrity d 03-21 09:25:00 ROSA MS-MARVEL risk 13:00: [id number] Neuro anxiety Neuro/Emot Resolve 2019-04-26 ANUPAMA present ion d 03-21 09:15:00 ROSA MS-AMRVEL 13:00: [id number] 00 Integument surgical Integument Resolve 2019-04-12 Jasmyn wound d 04-02 09:25:00 (Brian) present 12:30: Meléndez [id number] Safety can be left Safety Resolve 2019-04-26 Jasmyn alone for d 04-02 09:15:00 (Brian) only short 12:30: Meléndez [id number] Elimination urinary Eliminatio Resolve 2018-072019-04-08 Teresa incontinenc n d 0-04 10:00:00 Ingrahm e 10:00: [id number] 00 Nutrition nutritional Nutrition Resolve 2018-072019-04-26 Teresa restriction d 0-08 09:15:00 Ingrahm s 09:25: [id number] 00 Safety risk for Safety Resolve 2018-072019-07-07 Merari hospitaliza d 0-23 09:05:00 Bill Jose Alejandro tion 09:00: [id number] 00 Nutrition nutritional Nutrition Resolve 2018-072019-08-04 Jameel restriction d 0-24 09:08:00 Anguish s 10:26: [id number] 00 Activity ADL Activity Active 2018-07 Jameel assistance 07 Anguish required 10:30: [id number] 00 Activity self-care Activity Active 2018-07 Jameel deficit 1-07 Anguish 10:30: [id number] 00 Safety fall risk Safety Resolve 2018-072019-07-07 Jameel factor d 107 09:05:00 Anguish present 10:30: [id number] 00 Safety can be left Safety Resolve 2018-072019-08-04 Jameel alone for d 07-12 09:08:00 Anguish only short 10:30: [id number] periods 00 Musculoskel transfer Musculoske Active 2018-07 Jameel etal assistance letal 07-12 Anguish required 10:30: [id number] 00 Musculoskel requires Musculoske Active 2018-07 Jameel etal human letal 07 Anguish assist to 10:30: [id number] leave home 00 Gait/Locomo gait PT/OT: Resolve 2018-072019-08-04 Jameel tion assistive Gait/Locom d 1 09:08:00 Anguish problems device otion 10:30: [id number] present 00 Medication oral med Meds Resolve 2018-072019-08-04 Jameel assistance d 2-12 09:08:00 Anguish required 12:00: [id number] 00 Integument skin Integument Active Jameel integrity 07-07 Anguish risk 09:05: [id number] 00 Elimination urinary Eliminatio Resolve 2019-08-04 Jameel incontinenc n d - 09:08:00 Anguish e 09:05: [id number] 00 Bed transfer PT/OT: Bed Active Jameel Mobility/Tr deficit: Mobility/T 07-07 Anguish ansfer sit/stand ransfer 09:05: [id number] 00 Bed transfer PT/OT: Bed Active Jameel Mobility/Tr deficit: Mobility/T 07-07 Anguish ansfer standing ransfer 09:05: [id number] pivot 00 Bed transfer PT/OT: Bed Active Jameel Mobility/Tr deficit: Mobility/T - Anguish ansfer toilet/comm ransfer 09:05: [id number] ode 00 Bed transfer PT/OT: Bed Active Jameel Mobility/Tr deficit: Mobility/T - Anguish ansfer shower/tub ransfer 09:05: [id number] 00 Safety risk for Safety [facility] 09:15: [id number] 00 Allergies, Adverse Reactions, Alerts Allergy Allergy [...] tablet timolol timolol No Jammie Unknown Unknown 0.25 % eye 0.25 % eye 03-14 Julio Cesar POLLOCK drops drops aspirin 325 aspirin 325 2018- No Jammie Unknown Unknown mg tablet mg tablet 03-14 Julio Cesar POLLOCK omeprazole omeprazole No Watson Unknown Unknown 20 mg 20 mg 03-14 ,Julio Cesar capsule,del capsule,del ayed ayed release release lisinopril lisinopril No Watson Unknown Unknown 20 mg 20 mg 03-14 ,Julio Cesar tablet tablet polyethylen polyethylen No Jammie Unknown Unknown e glycol e glycol 03-14 Julio Cesar POLLOCK 3350 17 3350 17 gram/dose gram/dose oral powder oral powder acetaminoph acetaminoph No Jammie Unknown Unknown en 325 mg en 325 mg 03-14 ,Julio Cesar capsule capsule modafinil modafinil 2018-07- No Watson Unknown Unknown 200 mg 200 mg 0- MD,Julio Cesar tablet tablet modafinil modafinil 2018-07- No Jammie Unknown Unknown 200 mg 200 mg 0- MD,Julio Cesar tablet tablet ferrous ferrous 2018-07- No Jammie Unknown Unknown gluconate gluconate 0 12-24 ,Julio Cesar 324 mg 324 mg (37.5 mg (37.5 mg iron) iron) tablet tablet Aspirin Low Aspirin Low 2018-07 Yes Watson Unknown Unknown Dose 81 mg Dose 81 mg 07-10 ,Julio Cesar tablet,onofre tablet,onofre yed release yed release omeprazole omeprazole No Watson Unknown Unknown 20 mg 20 mg 03-14 ,Julio Cesar capsule,del capsule,del ayed ayed release release pravastatin pravastatin No Watson Unknown Unknown 10 mg 10 mg 03-14 ,Julio Cesar tablet tablet timolol timolol No Watson Unknown Unknown maleate maleate 03-14 Julio Cesar POLLOCK 0.25 % eye 0.25 % eye drops drops lisinopril lisinopril No Jammie Unknown Unknown 40 mg 40 mg 03-14 ,Julio Cesar tablet tablet ferrous ferrous 2018-07 Yes Watson Unknown Unknown gluconate gluconate 2-24 ,Julio Cesar 324 mg 324 mg (37.5 mg (37.5 mg iron) iron) tablet tablet Vital Signs Vital Name Observation Time Observation Value Comments SYSTOLIC mm[Hg] 2019-08-04 18:10:08 128 mm[Hg] mm[Hg] Method: Sit SYSTOLIC mm[Hg] 2019-04-04 18:08:06 104 mm[Hg] mm[Hg] Method: Stand DIASTOLIC mm[Hg] 2019-08-04 18:10:08 90 mm[Hg] mm[Hg] Method: Sit DIASTOLIC mm[Hg] 2019-04-04 18:08:06 66 mm[Hg] mm[Hg] Method: Stand PULSE 2019-08-04 18:10:08 88 /min /min TEMP 2019-08-04 18:10:08 98.7 [degF] Procedures This patient has no known procedures. Results This patient has no known results.
--- OUTSIDE RECORDS SUMMARY | 2019-09-29 21:29 | XMS REPORT ---
:1945 Author Organization [facility] Counts include 234 beds at the [facility] Care Team Providers Name Role Phone Unavailable Unavailable Unavailable Problems Condition Condition Condition Status Onset Resolution Last Treating Comments Name Details Category Date Date Treatment Clinician Date Hemiplegia Hemiplegia Diagnosis Active Jameel and and 03-14 Anguish hemiparesis hemiparesis [id number] following following nontraumati nontraumati c c subarachnoi subarachnoi d d hemorrhage hemorrhage affecting affecting left left non-dominan non-dominan t side t side Dysarthria Dysarthria Diagnosis Active Jameel following following 03-14 Anguish nontraumati nontraumati [id number] c c subarachnoi subarachnoi d d hemorrhage hemorrhage Dysphagia Dysphagia Diagnosis Active Jameel following following 03-14 Anguish nontraumati nontraumati [id number] c c subarachnoi subarachnoi d d hemorrhage hemorrhage Dysphagia, Dysphagia, Diagnosis Active Jameel unspecified unspecified 03-14 Anguish [id number] Essential Essential Diagnosis Active Jameel (primary) (primary) 07-06 Anguish hypertensio hypertensio [id number] n n 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 03-14 Anguish tis, tis, [id number] unspecified 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 site 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) Anguish use of use of [id number] aspirin aspirin Personal Personal Diagnosis Active Jameel history of history of Anguish other other [id number] malignant malignant neoplasm of neoplasm of skin skin Pain frequent Pain Mgmt Resolve 2019-04-08 Jasmyn pain d 03-14 10:00:00 (Brian) 09:30: Meléndez 00 [id number] Cardio edema Cardiovasc Resolve 2019-04-12 Jasmyn ular d 03-14 09:25:00 (Brian) 09:30: Meléndez 00 [id number] Respiratory dyspnea Respirator Resolve 2019-04-08 Jasmyn present y d 03-14 10:00:00 (Brian) 09:30: Meléndez 00 [id number] Endo/Javier anti-coagul Endo/Javier Resolve 2019-04-12 Jasmyn ation d 03-14 09:25:00 (Brian) therapy 09:30: Meléndez [id number] Elimination urinary Eliminatio Resolve 2019-03-17 Jasmyn incontinenc n d 03-14 09:00:00 (Brian) e 09:30: Meléndez [id number] Neuro confusion Neuro/Emot Resolve 2019-04-26 Jasmyn present ion d 03-14 09:15:00 (Brian) 09:30: Meléndez 00 [id number] Neuro impaired Neuro/Emot Resolve 2019-04-26 Jasmyn decision-ma ion d 03-14 09:15:00 (Brian) luz marina 09:30: Meléndez [id number] Neuro memory Neuro/Emot Resolve 2019-04-26 Jasmyn deficit ion d 03-14 09:15:00 (Brian) needing 09:30: Meléndez supervision 00 [id number] Activity ADL Activity Resolve 2019-04-26 Jasmyn assistance d 03-14 09:15:00 (Brian) required 09:30: Meléndez [id number] Activity self-care Activity Resolve 2019-04-26 Jasmyn deficit d 03-14 09:15:00 (Brian) 09:30: Meléndez [id number] Safety cannot be Safety Resolve 2019-04-26 Jasmyn left alone d 03-14 09:15:00 (Brian) 09:30: Meléndez [id number] Safety knowledge/s Safety Resolve 2019-04-26 Jasmyn kill d 03-14 09:15:00 (Brian) deficit: pt 09:30: Meléndez 00 [id number] Safety fall risk Safety Resolve 2019-04-26 Jasmyn factor d 03-14 09:15:00 (Brian) present 09:30: Meléndez [id number] Safety risk for Safety Resolve 2019-04-26 Jasmyn hospitaliza d 03-14 09:15:00 (Brian) tion 09:30: Meléndez 00 [id number] Medication oral med Meds Resolve 2019-04-08 Jasmyn assistance d 03-14 10:00:00 (Brian) required 09:30: Meléndez 00 [id number] Medication potential Meds Resolve 2019-04-08 Jasmyn clinically d 03-14 10:00:00 (Brian) significant 09:30: Meléndez medication 00 [id number] issue Musculoskel transfer Musculoske Resolve 2019-04-08 Jasmyn etal assistance letal d 03-14 10:00:00 (Brian) required 09:30: Meléndez [id number] Musculoskel requires Musculoske Resolve 2019-04-08 Jasmyn etal human letal d 03-14 10:00:00 (Brian) assist to 09:30: Meléndez leave home 00 [id number] Nutrition nutritional Nutrition Resolve 2019-04-08 Jameel restriction d 03-14 10:00:00 Anguish s 11:42: [id number] 00 Balance/End balance/proposal coordinator PT/OT: Active Jameel urance rdination Balance/En 03-14 Anguish deficit durance 11:42: [id number] 00 Gait/Locomo gait PT/OT: Resolve 2019-08-04 Jameel tion deficit Gait/Locom d 03-14 09:08:00 Anguish problems otion 11:42: [id number] 00 Respiratory knowledge/s Respirator Resolve 2019-04-08 Jameel kill y d 03-17 10:00:00 Anguish deficit: cg 11:40: [id number] 00 Elimination knowledge/s Eliminatio Resolve 2019-04-08 Jameel kill n d 03-17 10:00:00 Anguish deficit: cg 11:40: [id number] 00 Integument skin Integument Resolve 2019-04-12 ANUPAMA integrity d 03-21 09:25:00 ROSA MS-MARVEL risk 13:00: [id number] Neuro anxiety Neuro/Emot Resolve 2019-04-26 ANUPAMA present ion d 03-21 09:15:00 ROSA MS-MARVEL 13:00: [id number] 00 Integument surgical Integument Resolve 2019-04-12 Jasmyn wound d 04-02 09:25:00 (Brian) present 12:30: Meléndez [id number] Safety can be left Safety Resolve 2019-04-26 Jasmyn alone for d 04-02 09:15:00 (Brian) only short 12:30: Meléndez [id number] Elimination urinary Eliminatio Resolve 2018-072019-04-08 Teresa incontinenc n d 0-04 10:00:00 Ingrahm e 10:00: [id number] 00 Nutrition nutritional Nutrition Resolve 2018-072019-04-26 Teresa restriction d 0-08 09:15:00 Ingrahm s 09:25: [id number] 00 Safety risk for Safety Resolve 2018-072019-07-07 Merari hospitaliza d 0-23 09:05:00 Bill Jose Alejandro tion 09:00: [id number] 00 Nutrition nutritional Nutrition Resolve 2018-072019-08-04 Jameel restriction d 0-24 09:08:00 Anguish s 10:26: [id number] 00 Activity ADL Activity Active 2018-07 Jameel assistance 07 Anguish required 10:30: [id number] 00 Activity self-care Activity Active 2018-07 Jameel deficit 1-07 Anguish 10:30: [id number] 00 Safety fall risk Safety Resolve 2018-072019-07-07 Jameel factor d 107 09:05:00 Anguish present 10:30: [id number] 00 Safety can be left Safety Resolve 2018-072019-08-04 Jameel alone for d 07-12 09:08:00 Anguish only short 10:30: [id number] periods 00 Musculoskel transfer Musculoske Active 2018-07 Jameel etal assistance letal 07-12 Anguish required 10:30: [id number] 00 Musculoskel requires Musculoske Active 2018-07 Jameel etal human letal 07 Anguish assist to 10:30: [id number] leave home 00 Gait/Locomo gait PT/OT: Resolve 2018-072019-08-04 Jameel tion assistive Gait/Locom d 1 09:08:00 Anguish problems device otion 10:30: [id number] present 00 Medication oral med Meds Resolve 2018-072019-08-04 Jameel assistance d 2-12 09:08:00 Anguish required 12:00: [id number] 00 Integument skin Integument Active Jameel integrity 07-07 Anguish risk 09:05: [id number] 00 Elimination urinary Eliminatio Resolve 2019-08-04 Jameel incontinenc n d - 09:08:00 Anguish e 09:05: [id number] 00 Bed transfer PT/OT: Bed Active Jameel Mobility/Tr deficit: Mobility/T 07-07 Anguish ansfer sit/stand ransfer 09:05: [id number] 00 Bed transfer PT/OT: Bed Active Jameel Mobility/Tr deficit: Mobility/T 07-07 Anguish ansfer standing ransfer 09:05: [id number] pivot 00 Bed transfer PT/OT: Bed Active Jameel Mobility/Tr deficit: Mobility/T - Anguish ansfer toilet/comm ransfer 09:05: [id number] ode 00 Bed transfer PT/OT: Bed Active Jameel Mobility/Tr deficit: Mobility/T - Anguish ansfer shower/tub ransfer 09:05: [id number] 00 Safety risk for Safety [facility] 09:15: [id number] 00 Allergies, Adverse Reactions, Alerts Allergy Allergy [...] Jammie Unknown Unknown mg tablet mg tablet 03-14- Julio Cesar POLLOCK omeprazole omeprazole No [place] Unknown Unknown 20 mg 20 mg 03-14 MD,Julio Cesar capsule,del capsule,del ayed ayed release release lisinopril lisinopril No [place] Unknown Unknown 20 mg 20 mg 03-14 ,Julio Cesar tablet tablet polyethylen polyethylen No Jammie Unknown Unknown e glycol e glycol 03-14 Julio Cesar POLLOCK 3350 17 3350 17 gram/dose gram/dose oral powder oral powder acetaminoph acetaminoph No Jammie Unknown Unknown en 325 mg en 325 mg 03-14 ,Julio Cesar capsule capsule modafinil modafinil 2018-07- No [place] Unknown Unknown 200 mg 200 mg 0- MD,Julio Cesar tablet tablet modafinil modafinil 2018-07- No Jammie Unknown Unknown 200 mg 200 mg 0- MD,Julio Cesar tablet tablet ferrous ferrous 2018-07- No Jammie Unknown Unknown gluconate gluconate 0 12-24 ,Julio Cesar 324 mg 324 mg (37.5 mg (37.5 mg iron) iron) tablet tablet Aspirin Low Aspirin Low 2018-07 No [place] Unknown Unknown Dose 81 mg Dose 81 mg 07-10 ,Julio Cesar tablet,onofre tablet,onofre yed release yed release omeprazole omeprazole No [place] Unknown Unknown 20 mg 20 mg 03-14 ,Julio Cesar capsule,del capsule,del ayed ayed release release pravastatin pravastatin No [place] Unknown Unknown 10 mg 10 mg 03-14 ,Julio Cesar tablet tablet timolol timolol No [place] Unknown Unknown maleate maleate 03-14 Julio Cesar POLLOCK 0.25 % eye 0.25 % eye drops drops lisinopril lisinopril No [place] Unknown Unknown 40 mg 40 mg 03-14 ,Julio Cesar tablet tablet ferrous ferrous 2018-07 Yes [place] Unknown Unknown gluconate gluconate 2-24 ,Julio Cesar [...]
--- OUTSIDE RECORDS SUMMARY | 2019-09-29 21:30 | XMS REPORT ---
:1945 Author Organization [facility] Care Team Providers Name Role Phone Unavailable Unavailable Unavailable Problems Condition Condition Condition Status Onset Resolution Last Treating Comments Name Details Category Date Date Treatment Clinician Date Hemiplegia Hemiplegia Diagnosis Active Jameel and and 03-14 Anguish hemiparesis hemiparesis [id number] following following nontraumati nontraumati c c subarachnoi subarachnoi d d hemorrhage hemorrhage affecting affecting left left non-dominan non-dominan t side t side Dysarthria Dysarthria Diagnosis Active Jameel following following 03-14 Anguish nontraumati nontraumati [id number] c c subarachnoi subarachnoi d d hemorrhage hemorrhage Dysphagia Dysphagia Diagnosis Active Jameel following following 03-14 Anguish nontraumati nontraumati [id number] c c subarachnoi subarachnoi d d hemorrhage hemorrhage Dysphagia, Dysphagia, Diagnosis Active Jameel unspecified unspecified 03-14 Anguish [id number] Essential Essential Diagnosis Active Jameel (primary) (primary) 07-06 Anguish hypertensio hypertensio [id number] n n 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 03-14 Anguish tis, tis, [id number] 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) Anguish use of use of [id number] aspirin aspirin Personal Personal Diagnosis Active Jameel history of history of Anguish other other [id number] malignant malignant neoplasm of neoplasm of skin skin Pain frequent Pain Mgmt Resolve 2019-04-08 Jasmyn pain d 03-14 10:00:00 (Brian) 09:30: Meléndez 00 [id number] Cardio edema Cardiovasc Resolve 2019-04-12 Jasmyn ular d 03-14 09:25:00 (Brian) 09:30: Meléndez 00 [id number] Respiratory dyspnea Respirator Resolve 2019-04-08 Jasmyn present y d 03-14 10:00:00 (Brian) 09:30: Meléndez 00 [id number] Endo/Javier anti-coagul Endo/Javier Resolve 2019-04-12 Jasmyn ation d 03-14 09:25:00 (Brian) therapy 09:30: Meléndez [id number] Elimination urinary Eliminatio Resolve 2019-03-17 Jasmyn incontinenc n d 03-14 09:00:00 (Brian) e 09:30: Meléndez [id number] Neuro confusion Neuro/Emot Resolve 2019-04-26 Jasmyn present ion d 03-14 09:15:00 (Brian) 09:30: Meléndez 00 [id number] Neuro impaired Neuro/Emot Resolve 2019-04-26 Jasmyn decision-ma ion d 03-14 09:15:00 (Brian) luz marina 09:30: Meléndez [id number] Neuro memory Neuro/Emot Resolve 2019-04-26 Jasmyn deficit ion d 03-14 09:15:00 (Brian) needing 09:30: Meléndez supervision 00 [id number] Activity ADL Activity Resolve 2019-04-26 Jasmyn assistance d 03-14 09:15:00 (Brian) required 09:30: Meléndez [id number] Activity self-care Activity Resolve 2019-04-26 Jasmyn deficit d 03-14 09:15:00 (Brian) 09:30: Meléndez [id number] Safety cannot be Safety Resolve 2019-04-26 Jasmyn left alone d 03-14 09:15:00 (Brian) 09:30: Meléndez [id number] Safety knowledge/s Safety Resolve 2019-04-26 Jasmyn kill d 03-14 09:15:00 (Brian) deficit: pt 09:30: Meléndez 00 [id number] Safety fall risk Safety Resolve 2019-04-26 Jasmyn factor d 03-14 09:15:00 (Brian) present 09:30: Meléndez [id number] Safety risk for Safety Resolve 2019-04-26 Jasmyn hospitaliza d 03-14 09:15:00 (Brian) tion 09:30: Meléndez 00 [id number] Medication oral med Meds Resolve 2019-04-08 Jasmyn assistance d 03-14 10:00:00 (Brian) required 09:30: Meléndez [id number] Medication potential Meds Resolve 2019-04-08 Jasmyn clinically d 03-14 10:00:00 (Brian) significant 09:30: Meléndez medication 00 [id number] issue Musculoskel transfer Musculoske Resolve 2019-04-08 Jasmyn etal assistance letal d 03-14 10:00:00 (Brian) required 09:30: Meléndez [id number] Musculoskel requires Musculoske Resolve 2019-04-08 Jasmyn etal human letal d 03-14 10:00:00 (Brian) assist to 09:30: Meléndez leave home 00 [id number] Nutrition nutritional Nutrition Resolve 2019-04-08 Jameel restriction d 03-14 10:00:00 Anguish s 11:42: [id number] 00 Balance/End balance/occupational health coordinator PT/OT: Active Jameel urance rdination Balance/En 03-14 Anguish deficit durance 11:42: [id number] 00 Gait/Locomo gait PT/OT: Active Jameel tion deficit Gait/Locom 03-14 Anguish problems otion 11:42: [id number] 00 Respiratory knowledge/s Respirator Resolve 2019-04-08 Jameel kill y d 03-17 10:00:00 Anguish deficit: cg 11:40: [id number] 00 Elimination knowledge/s Eliminatio Resolve 2019-04-08 Jameel kill n d 03-17 10:00:00 Anguish deficit: cg 11:40: [id number] 00 Integument skin Integument Resolve 2019-04-12 ANUPAMA integrity d 03-21 09:25:00 ROSA MS-MARVEL risk 13:00: [id number] 00 Neuro anxiety Neuro/Emot Resolve 2019-04-26 ANUPAMA present ion d 03-21 09:15:00 ROSA MS-MARVEL 13:00: [id number] 00 Integument surgical Integument Resolve 2019-04-12 Jasmyn wound d 04-02 09:25:00 (Brian) present 12:30: Meléndez [id number] Safety can be left Safety Resolve 2019-04-26 Jasmyn alone for d - 09:15:00 (Brian) only short 12:30: Meléndez 00 [id number] Elimination urinary Eliminatio Resolve 2018-072019-04-08 Teresa incontinenc n d 0-04 10:00:00 Ingrahm e 10:00: [id number] 00 Nutrition nutritional Nutrition Resolve 2018-072019-04-26 Teresa restriction d 0-08 09:15:00 Ingrahm s 09:25: [id number] 00 Safety risk for Safety Resolve 2018-072019-07-07 Merari hospitaliza d 0-23 09:05:00 Bill Jose Alejandro tion 09:00: [id number] 00 Nutrition nutritional Nutrition Active 2018-07 Jameel restriction 0-24 Anguish s 10:26: [id number] 00 Activity ADL Activity Active 2018-07 Jameel assistance 1-07 Anguish required 10:30: [id number] 00 Activity self-care Activity Active 2018-07 Jameel deficit 1-07 Anguish 10:30: [id number] 00 Safety fall risk Safety Resolve 2018-072019-07-07 Jameel factor d 1-07 09:05:00 Anguish present 10:30: [id number] 00 Safety can be left Safety Active 2018-07 Jameel alone for 1-07 Anguish only short 10:30: [id number] periods 00 Musculoskel transfer Musculoske Active 2018-07 Jameel etal assistance letal 1-07 Anguish required 10:30: [id number] 00 Musculoskel requires Musculoske Active 2018-07 Jameel etal human letal 1-07 Anguish assist to 10:30: [id number] leave home 00 Gait/Locomo gait PT/OT: Active 2018-07 Jameel tion assistive Gait/Locom 1-07 Anguish problems device otion 10:30: [id number] present 00 Medication oral med Meds Active 2018-07 Jameel assistance 2-12 Anguish required 12:00: [id number] 00 Integument skin Integument Active Jameel integrity 1-02 Anguish risk 09:05: [id number] 00 Elimination urinary Eliminatio Active Jameel incontinenc n 07-07 Anguish e 09:05: [id number] 00 Bed transfer PT/OT: Bed Active Jameel Mobility/Tr deficit: Mobility/T 07-07 Luis Enriquejuju jack sit/stand ransfer 09:05: [id number] 00 Bed transfer PT/OT: Bed Active Jameel Mobility/Tr deficit: Mobility/T 07-07 Surjit herringfer standing ransfer 09:05: [id number] pivot 00 Bed transfer PT/OT: Bed Active Jameel Mobility/Tr deficit: Mobility/T 07-07 Surjit jack toilet/comm ransfer 09:05: [id number] ode 00 Bed transfer PT/OT: Bed Active Jameel Mobility/Tr deficit: Mobility/T 07-07 Surjit jack shower/tub ransfer 09:05: [id number] 00 Safety risk for Safety Active [facility] 07-20 [facility] 09:15: [id number] 00 Allergies, Adverse Reactions, Alerts Allergy Allergy [...] Cesar POLLOCK tablet tablet timolol timolol No [place] Unknown Unknown 0.25 % eye 0.25 % eye 03-14 Julio Cesar POLLOCK drops drops aspirin 325 aspirin 325 2018- No [place] Unknown Unknown mg tablet mg tablet 03-14 Julio Cesar POLLOCK omeprazole omeprazole No Jammie Unknown Unknown 20 mg 20 mg 03-14 Julio Cesar POLLOCK capsule,del capsule,del ayed ayed release release lisinopril lisinopril No Jammie Unknown Unknown 20 mg 20 mg 03-14 ,Julio Cesar tablet tablet polyethylen polyethylen No [place] Unknown Unknown e glycol e glycol 03-14 ,Julio Cesar 3350 17 3350 17 gram/dose gram/dose oral powder oral powder acetaminoph acetaminoph No Jammie Unknown Unknown en 325 mg en 325 mg 03-14 MD,Julio Cesar capsule capsule modafinil modafinil 2018-07- No Jammie Unknown Unknown 200 mg 200 mg 0- MD,Julio Cesar tablet tablet modafinil modafinil 2018-07- No [place] Unknown Unknown 200 mg 200 mg 0- MD,Julio Cesar tablet tablet ferrous ferrous 2018-07- No [place] Unknown Unknown gluconate gluconate 0- 12- MD,Julio Cesar 324 mg 324 mg (37.5 mg (37.5 mg iron) iron) tablet tablet Aspirin Low Aspirin Low 2018-07 Yes [place] Unknown Unknown Dose 81 mg Dose 81 mg 1-05 MD,Julio Cesar tablet,onofre tablet,onofre yed release yed release omeprazole omeprazole No Jammie Unknown Unknown 20 mg 20 mg 03-14 MD,Julio Cesar capsule,del capsule,del ayed ayed release release pravastatin pravastatin No Jammie Unknown Unknown 10 mg 10 mg 03-14 ,Julio Cesar tablet tablet timolol timolol No [place] Unknown Unknown maleate maleate 03-14 Julio Cesar POLLOCK 0.25 % eye 0.25 % eye drops drops lisinopril lisinopril No [place] Unknown Unknown 40 mg 40 mg 03-14 [...]
[2019-09-29] MEDS ORDERED: NS 0.9% 1000 ML** 400 ML IV SCH (22:00)
[2019-09-29 22:24] LABS: Folate > 20.00 ng/mL (>3.99)
[2019-09-29 23:01] LABS: ABS Lymphocytes 1.4 10^3/ul (1.0-4.8); ABS Monocytes 0.9 10^3/ul (0-0.8); ABS Neutrophils 8.2 10^3/ul (1.5-7.7); Eosinophil % 0.3 %; Hematocrit 31 % (42-52); Hemoglobin 10.9 g/dL (14.0-18.0); Lymphocyte % 12.9 %; Mean Corpuscular HGB Conc 36 g/dL (31-36); Mean Corpuscular Hemoglobin 33 pg (27-31); Mean Corpuscular Volume 93 fL (80-94); Mean Platelet Volume 7.2 fL (7.4-10.4); Nucleated Red Blood Cells % 0.2; Platelet Count 166 10^3/uL (150-450); Red Cell Distribution Width 14 % (10-15); White Blood Count 10.6 10^3/uL (3.5-10.8)
[2019-09-29 23:07] LABS: Activated Partial Thrombo Time 25.6 seconds (26.0-38.0); INR 1.18 (0.82-1.09)
[2019-09-29 23:14] LABS: EGFR African American 67.9 (>60); EGFR Non-African American 56.1 (>60); HDL Cholesterol 37.4 mg/dL
[2019-09-29] MEDS ORDERED: NS 0.9% 1000 ML** 1,000 ML IV SCH (23:45)
[2019-09-30] MEDS: Timolol 0.25% OPHTH.SOLN* BTL OPHTHALMIC SCH ×2 (00:26→08:19)
[2019-09-30 00:32] LABS: Urine Appearance Clear; Urine Bilirubin Negative (Negative); Urine Blood Negative (Negative); Urine Color Straw; Urine Glucose Negative (Negative); Urine Ketones Negative (Negative); Urine Nitrite Negative (Negative); Urine Protein Negative (Negative); Urine Specific Gravity 1.005 (1.010-1.030); Urine Urobilinogen Negative (Negative)
[2019-09-30] MEDS: Heparin VIAL(*) 5000 UNITS/ML VIAL (FIVE THOUSAND) SUBCUT SCH ×2 (05:45→15:22)
[2019-09-30 05:58] LABS: ABS Lymphocytes 1.4 10^3/ul (1.0-4.8); ABS Monocytes 0.7 10^3/ul (0-0.8); ABS Neutrophils 5.1 10^3/ul (1.5-7.7); Eosinophil % 0.6 %; Hematocrit 30 % (42-52); Hemoglobin 10.4 g/dL (14.0-18.0); Lymphocyte % 19.3 %; Mean Corpuscular HGB Conc 35 g/dL (31-36); Mean Corpuscular Hemoglobin 33 pg (27-31); Mean Corpuscular Volume 94 fL (80-94); Mean Platelet Volume 7.4 fL (7.4-10.4); Nucleated Red Blood Cells % 0.1; Platelet Count 209 10^3/uL (150-450); Red Blood Count 3.17 10^6 /uL (4.18-5.48); Red Cell Distribution Width 14 % (10-15); White Blood Count 7.4 10^3/uL (3.5-10.8)
--- NOTE | 2019-09-30 05:59 | HP ---
HISTORY AND PHYSICAL: DATE OF ADMISSION: 09/29/19 HISTORY OF PRESENT ILLNESS: This is a 74-year-old male with past medical history significant for hypertension, GERD, stroke, who presented to the ED with the chief complaint of syncope. The patient stated that while he was having dinner with his on the dinner table, he said he took a bite of the food and synopsized. He said he never knew, but it was the who told him that he passed out on the dinner table for about 1 minute. He did not fall nor did he hit his head, and he said he could not remember anything. If the had not told him, he would not have known that he passed out. Earlier on today, the patient said he woke up in the morning with a slight headache, nausea , diaphoresis, and abdominal pain. The abdominal pain resolved after a bout of loose stool but the headache persisted. After the syncopal episode, the patient said he noticed he had trouble with speech, which quickly returned to normal. He denied chest pain, shortness of breath, fever. 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 Of note, the last time he was admitted here was on 09/13/18. He had a remote history of lymphoplasmacytic lymphoma or Waldenstrom macroglobulinemia which was not followed up. The patient stated he never knew about the diagnosis that is on record from the blood work he did. He was dully informed and the need to follow up and he is in agreement. PAST MEDICAL HISTORY: GERD, hyperlipidemia, hypertension, lymphoplasmacytic lymphoma or Waldenstrom macroglobulinemia. PAST SURGICAL HISTORY: Hernia repair, appendectomy, cranioplasty secondary to hemorrhagic stroke, and right meniscal repair. CURRENT MEDICATIONS: 1. Baby aspirin 1 tablet p.o. daily. 2. Folic acid 1 mg p.o. daily. 3. Multivitamin Theragran 1 tablet p.o. daily. 4. Omeprazole 20 mg p.o. daily. 5. Pravastatin 10 mg p.o. daily. 6. Lisinopril 20 mg p.o. daily. 7. Timoptic ophthalmologic solution 1 drop b.i.d. daily. ALLERGIES: There are no known drug allergies. FAMILY HISTORY: The patient's father of myocardial infarction. The patient's mother of thyroid cancer. The patient has 2 sisters who are alive and healthy. SOCIAL HISTORY: He denied ever smoking. Drinks alcohol occasionally. Denied use of illicit drugs. 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 He is and has 3 children. REVIEW OF SYSTEMS: Positive for skin diaphoresis. Positive abdominal pain, diarrhea, and nausea. Positive headache and syncope. Negative chest pain. Negative shortness of breath. All others negative except as noted above and in the HPI. PHYSICAL EXAMINATION GENERAL: Well appearing, well nourished, lying in bed comfortably, in no obvious distress. VITAL SIGNS: Temperature 98.3, heart rate 92, respiratory rate 18, oxygen saturation 92% on room air, blood pressure 133/87. HEENT: Normocephalic, atraumatic, status post cranioplasty with scar depression noted on the right, nontender. Sclerae anicteric. No conjunctival injection. Nasal mucosa moist. Oral mucosa moist. No pharyngeal erythema, discharge, or exudate. NECK: Supple. Nontender. No lymphadenopathy. No carotid bruits auscultated. No JVD. No thyromegaly. RESPIRATORY: Clear to auscultation bilaterally. No signs of respiratory distress. Good air exchange bilaterally. No wheezes. CARDIOVASCULAR: S1, S2 heard. Regular rate and rhythm. No murmurs, no gallops , no rubs. ABDOMEN: Soft, nontender, nondistended. Bowel sounds present. Normoactive in all 4 quadrants. No hepatosplenomegaly. No abdominal bruits auscultated. No hepatojugular reflux. GENITOURINARY: No suprapubic or CVA tenderness. MUSCULOSKELETAL: Normal range of motion, moves all 4 extremities, acyanotic, no edema. NEUROLOGICAL: Alert, oriented x3, mentation is normal. Speech is fluent and appropriate. Level of consciousness normal. Cranial nerves II through XII grossly intact. Gaze is conjugate and without any nystagmus. Peripheral vision is intact to confrontation. There is no truncal or fine motor ataxia. Gait is normal. Hydrogenation Still Operator is normal. No focal deficits noted. PSYCHIATRIC: Pleasant and cooperative with normal mood and affect. SKIN: Warm, dry. No obvious rashes. LABORATORY FINDINGS: Hematology: WBC 10.6, RBC 3.30, hemoglobin 10.9, hematocrit 31, MCV 93, MCH 33, MCHC 36, RDW 14, platelet count 166, MPV 7.2, neutrophil percentage 77.5, absolute neutrophils 8.2. Chemistry: Sodium 135, potassium 4.2, chloride 102, carbon dioxide 24, anion gap 9, BUN 20, creatinine 1.31, estimated GFR non- 53.6, BUN and creatinine ratio 15.3, glucose 107, lactic acid 1.4, calcium 9.6, magnesium 2.0, total bilirubin 0.40. AST 16, ALT 16, alkaline phosphatase 68, troponin 0.01, total protein 10.4, albumin 3.2, globulin 7.2. Albumin globulin ratio 0.4. Triglycerides 64, cholesterol 106, LDL 56, HDL 7.4. Vitamin B12 481. Folate greater than 20. TSH 3.90. Repeat creatinine after a bolus of 1 liter of normal saline at 1.26. Estimated GFR non- 56.1. BUN 20. Coagulation studies: INR 1.18, APTT 25.6. Urine grossly normal. CT brain without contrast: 1. The previously seen hematoma in right temporal and parietal lobe is resolved and there is now encephalomalacia in this region. 2. There is age-related diffuse cerebral and cerebellar volume loss and chronic microvascular ischemic disease. 3. There are new postoperative changes, right temporal, frontal, and parietal craniectomy with cranioplasty. 4. No acute intracranial pathology. Carotid Doppler study, impression: No hemodynamically significant stenosis or occlusion. Minimal atherosclerosis at the right carotid bulb and mild atherosclerosis at the origin of the left internal carotid artery. Abdominal arterial study or ultrasound: No abdominal aortic aneurysm. EKG: Normal sinus rhythm with normal P wave, P axis, borderline left axis deviation. ASSESSMENT AND PLAN: A 74-year-old male with past medical history significant for hypertension, Waldenstrom macroglobulinemia or lymphoplasmacytic lymphoma, and a history of severe hemorrhagic stroke, presented with the chief complaint of syncope lasting for 1 minute witnessed by the while having dinner. There was no fall and there was no hitting of her head. The patient will be admitted for observation with a syncope workup and telemonitor. Orthostatic blood pressure, neuro checks every [address] brain as noted above, no intracranial pathology. Carotid Doppler as noted above. No evidence of aortic aneurysm. For the syncope, the patient already received 1 liter of normal saline bolus in the ED. I will give the maintenance dose of 100 cc per hour and encourage p.o. intake in the setting of mild acute kidney injury, probably syncope due to orthostatics and dehydration. There is no cardiac evidence for the syncope. For acute kidney injury, as stated above, gentle hydration and encourage p.o. intake. Neurology consult will be requested in a.m., followup a.m. labs. For cerebrovascular accident, the patient to continue with statin and baby aspirin. For hypertension, the patient will continue on his home medications of lisinopril 20 mg p.o. daily with holding parameters. For lymphoplasmacytic lymphoma or Waldenstrom macroglobulinemia, I will request for hematology consult. This may be done as an outpatient. For gastroesophageal reflux disease, the patient is to continue with omeprazole. DVT prophylaxis: Heparin subcu. Diet: Cardiac diet. Code status: The patient is to remain full code at this time. Fluids and electrolytes will be repleted as needed. Disposition: The patient will be admitted for observation. TIME SPENT: Approximately 60 minutes was spent on the admission of this patient , half of which was spent [id number] with the patient obtaining history and physical and discussing treatment plan. Thank you very much for the opportunity to partake in the healthcare needs of this jason gentleman. [id number]/[facility] #: [id number] PAULA
[2019-09-30 06:17] LABS: BUN/Creatinine Ratio 15.2 (8-20); Calcium 9.1 mg/dL (8.6-10.3); EGFR African American 68.5 (>60); EGFR Non-African American 56.6 (>60); Potassium 3.9 mmol/L (3.5-5.0)
--- NOTE | 2019-09-30 08:51 | CONSULT ---
Consultation - Reason for Consultation Reason for Consultation: Reported history of Possible Waldenstroms now with syncopal event Ordering Provider: Primo Olson Chief Complaint: Syncopal event History of Present Illness: I am asked to evaluate this pleasant 74 year old gentleman with a PMH of HTN, Pneumonia prior Hemorrhagic stroke 2018 which developed after falling from a ladder. Yesterday he developed a syncopal event while eating dinned. He developed nausea and felt diaphoretic with short lived syncope. No seizure activity reported. Head CT reveals right sided encephalomacia from prior stroke as well as prior craniotomy changes. Per records there is a possible diagnosis of Waldenstroms for which the patient has not followed up on. I currently cannot find prior labs regarding that diagnosis. Since admission no further syncopal activity. WBC 7.4 Hg 10.4 Platelets 209 WBC 1.25 TP 10.4 Alb 3.2 globulin 7.2 PTT 25.6 PTinr 1.18 B12 481 Folate 20 TSH 3.5 Abdominal imaging negative for AAA Carotid dopplers without significant stenosis. Allergies/Medications Allergies/Adverse Reactions: Allergies Allergy/AdvReac Type Severity Reaction Status Date / Time No Known Allergies Allergy Verified 09/13/18 08:53 History - Past Medical History Hx Arthritis: No Hx Blood Dyscrasias: Yes - Possible Waldenstrom's Hx Cardiac Disorders: No Hx Circulatory Problems: No Hx Diabetes: No Hx Hypercholesterolemia: Yes Hx Hypertension: Yes Hx Musculoskeletal Deformity: No Surgical History: Yes Surgery Procedure, Year, and Place: Right sided Craniotomy Hx Endocrine Problem: No Hx Bone Density Problem: No - Family History Hx Family Cancer: Yes - Mother thyroid cancer Hx Family Cerebrovascular Accident: No Hx Family Cardiac Disorders: Yes - Father NC - Social History Hx Alcohol Use: Yes Hx Tobacco Use: No Review of Systems - Review of Systems Constitutional Symptoms: Positive: Other - Syncopal event Dermatology: Positive: Normal Eyes: Positive: Normal Thyroid: Positive: Normal Pulmonary: Positive: Normal Cardiology: Positive: Syncope Gastroenterology: Positive: Normal Endocrinology: Positive: Normal Hematologic/Lymphatic: Positive: Anemia, Other - Possible Waldenstrom's Neurology: Positive: Numbness\Paresthesiae Psychiatry: Positive: Normal Physical Exam - Physical Exam Physical Examination: Alert and oriented HEENT with PERRLA neck supple Cardiac RRR Abdomen soft Chronic left sided weakness with hand contraction Results - Lab Results Lab Results: 09/29/19 09/29/19 09/29/19 19:27 19:27 19:27 WBC 8.2 RBC 3.56 L Hgb 11.6 L Hct 34 L MCV 94 MCH 33 H MCHC 35 RDW 14 Plt Count 206 MPV 7.9 Neut % (Auto) 68.2 Lymph % (Auto) 20.8 [place] % (Auto) 9.7 Eos % (Auto) 1.0 Baso % (Auto) 0.3 Absolute Neuts (auto) 5.6 Absolute Lymphs (auto) 1.7 Absolute Monos (auto) 0.8 Absolute Eos (auto) 0.1 Absolute Basos (auto) 0.0 Absolute Nucleated RBC 0.0 Nucleated RBC % 0.1 INR (Anticoag Therapy) APTT Sodium 135 Potassium 4.2 Chloride 102 Carbon Dioxide 24 Anion Gap 9 BUN 20 Creatinine 1.31 H Est GFR ( Amer) 64.9 Est GFR (Non-Af Amer) 53.6 BUN/Creatinine Ratio 15.3 Glucose 107 H Lactic Acid 1.4 Calcium 9.6 Magnesium 2.0 Total Bilirubin 0.40 AST 16 ALT 16 Alkaline Phosphatase 58 Troponin I 0.01 Total Protein 10.4 H Albumin 3.2 Globulin 7.2 H Albumin/Globulin Ratio 0.4 L Triglycerides Cholesterol LDL Cholesterol HDL Cholesterol Vitamin B12 Cancelled Folate Cancelled TSH 3.90 Urine Color Urine Appearance Urine pH Ur Specific [place] Urine Protein Urine Ketones Urine Blood Urine Nitrate Urine Bilirubin Urine Urobilinogen Ur Leukocyte Esterase Urine Glucose 09/29/19 09/29/19 09/29/19 21:25 22:50 22:50 WBC 10.6 RBC 3.30 L Hgb 10.9 L Hct 31 L MCV 93 MCH 33 H MCHC 36 RDW 14 Plt Count 166 MPV 7.2 L Neut % (Auto) 77.5 Lymph % (Auto) 12.9 [place] % (Auto) 8.9 Eos % (Auto) 0.3 Baso % (Auto) 0.4 Absolute Neuts (auto) 8.2 H Absolute Lymphs (auto) 1.4 Absolute Monos (auto) 0.9 H Absolute Eos (auto) 0.0 Absolute Basos (auto) 0.0 Absolute Nucleated RBC 0.0 Nucleated RBC % 0.2 INR (Anticoag Therapy) APTT Sodium Potassium Chloride Carbon Dioxide Anion Gap BUN 20 Creatinine 1.26 H Est GFR ( Amer) 67.9 Est GFR (Non-Af Amer) 56.1 BUN/Creatinine Ratio Glucose Lactic Acid Calcium Magnesium Total Bilirubin AST ALT Alkaline Phosphatase Troponin I Total Protein Albumin Globulin Albumin/Globulin Ratio Triglycerides 64 Cholesterol 106 LDL Cholesterol 56 HDL Cholesterol 37.4 Vitamin B12 481 Folate > 20.00 TSH Urine Color Urine Appearance Urine pH Ur Specific [place] Urine Protein Urine Ketones Urine Blood Urine Nitrate Urine Bilirubin Urine Urobilinogen Ur Leukocyte Esterase Urine Glucose 09/29/19 09/29/19 09/30/19 22:50 23:45 05:45 WBC 7.4 RBC 3.17 L Hgb 10.4 L Hct 30 L MCV 94 MCH 33 H MCHC 35 RDW 14 Plt Count 209 MPV 7.4 Neut % (Auto) 69.6 Lymph % (Auto) 19.3 [place] % (Auto) 10.0 Eos % (Auto) 0.6 Baso % (Auto) 0.5 Absolute Neuts (auto) 5.1 Absolute Lymphs (auto) 1.4 Absolute Monos (auto) 0.7 Absolute Eos (auto) 0.0 Absolute Basos (auto) 0.0 Absolute Nucleated RBC 0.0 Nucleated RBC % 0.1 INR (Anticoag Therapy) 1.18 H APTT 25.6 L Sodium Potassium Chloride Carbon Dioxide Anion Gap BUN Creatinine Est GFR ( Amer) Est GFR (Non-Af Amer) BUN/Creatinine Ratio Glucose Lactic Acid Calcium Magnesium Total Bilirubin AST ALT Alkaline Phosphatase Troponin I Total Protein Albumin Globulin Albumin/Globulin Ratio Triglycerides Cholesterol LDL Cholesterol HDL Cholesterol Vitamin B12 Folate TSH Urine Color Straw Urine Appearance Clear Urine pH 5.0 Ur Specific [place] 1.005 L Urine Protein Negative Urine Ketones Negative Urine Blood Negative Urine Nitrate Negative Urine Bilirubin Negative Urine Urobilinogen Negative Ur Leukocyte Esterase Negative Urine Glucose Negative 09/30/19 05:45 WBC RBC Hgb Hct MCV MCH MCHC RDW Plt Count MPV Neut % (Auto) Lymph % (Auto) [place] % (Auto) Eos % (Auto) Baso % (Auto) Absolute Neuts (auto) Absolute Lymphs (auto) Absolute Monos (auto) Absolute Eos (auto) Absolute Basos (auto) Absolute Nucleated RBC Nucleated RBC % INR (Anticoag Therapy) APTT Sodium 140 Potassium 3.9 Chloride 107 Carbon Dioxide 26 Anion Gap 7 BUN 19 Creatinine 1.25 H Est GFR ( Amer) 68.5 Est GFR (Non-Af Amer) 56.6 BUN/Creatinine Ratio 15.2 Glucose 102 H Lactic Acid Calcium 9.1 Magnesium 2.0 Total Bilirubin AST ALT Alkaline Phosphatase Troponin I Total Protein Albumin Globulin Albumin/Globulin Ratio Triglycerides Cholesterol LDL Cholesterol HDL Cholesterol Vitamin B12 Folate TSH Urine Color Urine Appearance Urine pH Ur Specific [place] Urine Protein Urine Ketones Urine Blood Urine Nitrate Urine Bilirubin Urine Urobilinogen Ur Leukocyte Esterase Urine Glucose Assessment and Plan Impression: Syncopal event History of prior right sided hemorrhagic CVA after fall Hypertension History of pneumonia Mild normocytic anemia likely multifactorial including a component of mild CRI ? Waldenstroms Possible Waldenstrom's from prior notes (Note elevated Total protein and Globulin) Plan: Continues evaluation for syncope Proceed to : Quantitative Immunoglobulins, k/l free light chain ratio, Serum viscosity, SPEP , Serum immunofixation, UPEP Will follow up pending studies
[2019-09-30] MEDS ORDERED: Aspirin EC TAB* 81 MG TAB.EC PO SCH (09:00)
[2019-09-30] MEDS ORDERED: Folic Acid TAB* 1 MG PO SCH (09:00)
[2019-09-30] MEDS ORDERED: Pantoprazole TAB * 40 MG TAB PO SCH (09:00)
[2019-09-30] MEDS ORDERED: Multivitamins/Minerals TAB PO SCH (09:00)
--- NOTE | 2019-09-30 10:49 | PN ---
Subjective Date of Service: 09/30/19 Interval History: pt reports that he does not feel any differant from normal. Pt denies headaches , dizziness, vision changes, dysarthria, unilateral weakness, numbness or tingling. Pt denies any chest pain or SOB. Denies feeling less than normal at this time. Family History: Unchanged from Admission Social History: Unchanged from Admission Past Medical History: Unchanged from Admission Objective Active Medications: Aspirin (Aspirin Ec Tab*) 81 mg PO QAM [facility] Last Admin: 09/30/19 08:17 Dose: 81 mg Folic Acid (Folvite Tab*) 1 mg PO DAILY [facility] Last Admin: 09/30/19 08:17 Dose: 1 mg Heparin Sodium (Porcine) (Heparin Vial(*)) 5,000 units SUBCUT Q8HR [facility] Last Admin: 09/30/19 05:45 Dose: 5,000 units Lisinopril (Prinivil Tab*) 20 mg PO QPM [facility] Multivitamins/Minerals (Theragran/Minerals Tab*) 1 tab PO DAILY [facility] Last Admin: 09/30/19 08:17 Dose: 1 tab Pantoprazole Sodium (Protonix Tab*) 40 mg PO QAM [facility] Last Admin: 09/30/19 08:17 Dose: 40 mg Polyethylene Glycol/Electrolytes (Miralax (17 Gm Dose Magdal[place])) 17 gm PO Q3D PRN PRN Reason: CONSTIPATION Pravastatin Sodium (Pravachol (Nf)) 10 mg PO QPM [facility] Timolol Maleate (Timoptic Ophth.Soln 0.25%) 1 drop OPHTHALMIC BID [facility] Last Admin: 09/30/19 08:19 Dose: 1 drop Vital Signs - 8 hr 09/30/19 09/30/19 03:22 07:15 Temperature 97.8 F 98.4 F Pulse Rate 93 101 Respiratory 18 16 Rate Blood Pressure 134/100 153/99 (mmHg) O2 Sat by Pulse 96 95 Oximetry Oxygen Devices in Use Now: None Appearance: Elderly gentlman sitting up in bed watching TV. Does not appear to be in any distress. Eyes: No Scleral Icterus, PERRLA Ears/Nose/Mouth/Throat: NL Teeth, Lips, Gums, Clear Oropharnyx, Mucous Membranes Moist Neck: NL Appearance and Movements; NL JVP, Trachea Midline Respiratory: Symmetrical Chest Expansion and Respiratory Effort, Clear to Auscultation Cardiovascular: NL Sounds; No Murmurs; No JVD, RRR, No Edema Abdominal: NL Sounds; No Tenderness; No Distention, No Hepatosplenomegaly Lymphatic: No Cervical Adenopathy Skin: No Rash or Ulcers, No Nodules or Sclerosis Neurological: Alert and Oriented x 3, NL Sensation, NL Muscle Strength and Tone - Left side weakness residual from previous hemorrhagic stroke. 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 No arm drift or drop, no leg drift or drop, pedal fexion extension minor weakness left side. , - - mild speech impairment. Pt able to articulate words fully however very mild dysarthia detected. Nutrition: Taking PO's Result Diagrams: 09/30/19 05:45 09/30/19 05:45 Assess/Plan/Problems-Billing Assessment: - Patient Problems (1) Syncope and collapse Comment: -Denies memory of event, denies experiencing any symptoms prior to event -Denies dizziness or headache -Denies any dizziness with positional changes -Dr. Billingsley to consult today (2) Status post CVA Comment: -Hemorrhagic CVA approx. one year ago with residual minor left sided deficits. -Brain CT in ED negative for new ischemia or hemorrhage -ASA, Pravastatin, Lisinopril -Dr. Billingsley to consult (3) Waldenstrom macroglobulinemia Comment: -Dr. Sanchez consulting suspected dx -Awaiting [place] Free Light Chains, Protein electrophoresis, Immunoglobulin serum, and Serum Viscosity -Dx made in the past that was never F/U (4) HTN (hypertension) Comment: -Lisinopril 20mg -Minor lability in BP's will continue to monitor continue adjusting medicatoin (5) YUDI (acute kidney injury) Comment: -Gentle rehydration -Pt drinking fluids -Will continue to monitor Cr 1.25 (6) Hyperlipidemia Comment: -Well controlled on Pravastatin (7) DVT prophylaxis Comment: -Heparin SQ (8) Full code status
--- NOTE | 2019-09-30 16:13 | EEG ---
ELECTROENCEPHALOGRAPHY: DATE OF STUDY: 09/30/19 LOCATION: He is an inpatient in room 444. REFERRING PHYSICIAN: Dr. Billingsley. CLINICAL PROBLEM: Episode of loss of consciousness. History of right intracranial hemorrhage in November 2018. MEDICATIONS: Include: 1. Protonix. 2. Folic acid. 3. Aspirin. 4. Pravastatin. 5. Lisinopril. REPORT: This 19-channel EEG is remarkable for background rhythms consisting of low abundance alpha r hythm in the left occipital derivations at about 9 cycles per second. Slower rhythmic theta activity and some delta activity is seen from the right hemisphere fairly diffusely. There appears to be a h igher voltage breach rhythm with more sharply contoured waveforms in the right frontocentral region. There are episodic phase reversing sharp waves with the following slow wave in the right posterotempo ral region. There is no evidence of sleep stages. There are no clinical events. CLINICAL IMPRESSION: Abnormal EEG due to generalized slowing of rhythms from the right hemisphere as well what appears to be a breach rhythm from the right frontocentral region. There are phase revers ing sharp waves in the right posterotemporal region consistent with epileptiform discharges. [id number]/[facility] #: [id number]
[2019-09-30] MEDS ORDERED: levETIRAcetam TAB* 500 MG PO SCH (16:30)
[2019-09-30 16:40] VITALS: BP 148/94
--- NOTE | 2019-09-30 17:18 | CONS ---
NEUROLOGY CONSULTATION: DATE OF CONSULT: 09/30/19 LOCATION: He is an inpatient in room 444. REFERRING PROVIDER: Dr. Billingsley. CHIEF COMPLAINT: Episode of loss of consciousness. HISTORY OF PRESENT ILLNESS: Hernan Root is a 74-year-old right-handed man who was in his usual state of health yesterday sitting down to dinner with his . The history is from Hernan and I also spoke to his over the phone. He recalls not feeling well yesterday, having some abdominal pain and diarrhea in the morning. By the afternoon he felt better. He had sat down to eat some chicken soup with his . He recalls having an upset stomach and the next thing he knew ambulance attendants were entering the room. He recognized one of them was a neighbor, who lived up the street. He does not know how long he was out entirely. I spoke to his , who reports that he was about to eat and he said that he did not feel well. He said that he was having some abdominal pain. He then slumped in his chair. She said he was very diaphoretic. He did not fall out of the chair. There was no stiffening or unusual movements. She called 911 and ambulance members arrived within she believes as quick as 2 to 3 minutes. He recovered and recognized one of the attendants as a neighbor. While she was trying to arouse him and before the ambulance attendants got there, he was mumbling incoherently. Once the ambulance attendants arrived, he seemed oriented. He has not had any recurrent episode since. There is no history of seizures before. There is no history of heart disease. He had a large right hemispheric intracranial hemorrhage in September of 2018. I reviewed the initial CAT scan when he presented to the emergency room. He was transferred to [facility] where he underwent surgery including hemicraniectomy. He has fabricated cranioplasty. He was not on any anticonvulsants as best as he is aware. He is not aware as to etiology of the hemorrhage. He had fallen off a ladder about 4 or 5 days prior to that, but did not hit his head or lose consciousness. 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 MEDICATIONS AT HOME: Consist of: 1. Aspirin 81 mg p.o. daily. 2. Folic acid 1 mg p.o. daily. 3. Multivitamin. 4. Omeprazole 20 mg p.o. daily. 5. Pravastatin 10 mg p.o. daily. 6. Lisinopril 20 mg p.o. daily. 7. Timoptic ophthalmic solution. ALLERGIES: He does not have any drug allergies. SOCIAL HISTORY: He lives at home with his . He is a nonsmoker. Rarely drinks alcohol. REVIEW OF SYSTEMS: Negative for recent headaches or falls. He was in rehabilitation and then had physical therapy and now does home exercises. He gets around with a walker at home and sometimes a cane. He has had problems with his vision since his intracranial hemorrhage. He has clumsiness and incoordination of his left arm and leg since the hemorrhage. There is no history of diabetes or alcohol abuse disorder. He is a nonsmoker. He is an [employer] vet, who served in [employer]. There is no history of pulmonary, cardiac , renal, other GI, or liver disease. There is no history of clotting disorders or bleeding disorders. There has been no recent weight loss, fevers, or shortness of breath. PHYSICAL EXAM: He is well nourished and well hydrated. He has been afebrile throughout his hospital stay. Blood pressure is running about 130 to 140 over 80 to 99 diastolic. Heart rate is about 70 and seems regular. Respiratory rate is 16 and oxygen saturation is 94% on room air. Heart tones are normal. There are no murmurs. Neck is supple. Carotid pulses are present and there are no cervical bruits. Lungs are clear bilaterally. Oral mucosa is moist and tongue is atraumatic. Head is atraumatic. He has postsurgical changes and well-healed scars on the right side of his head. On neurological exam, pupils react equally from 3 down to 2 mm. Funduscopic exam is unremarkable. Eye movements are full. He has a dense left homonymous hemianopia. He has mild central pattern left facial weakness. Facial sensation to light touch is intact. Tongue protrudes in the midline and palate rises symmetrically. He has a very mild dysarthria. Hearing is intact bilaterally. Motor exam reveals spastic catch in the left leg to a lesser extent the left arm. He has pretty good resistive strength in the left arm and proximally in the left leg. He has grade 4 left ankle dorsiflexor weakness. He has normal strength and muscle tone in the right arm and leg. Sensory exam to light touch and pin is intact in the limbs. Reflexes are hyperactive in the left arm and leg. He has a left Babinski sign. Finger taps are a bit slow and clumsy in the left hand and [id number] maneuver is clumsy in the left leg. Coordination on the right side is normal. He is alert and oriented to person, place, and time. He is a good historian with intact memory and fluent language. DIAGNOSTIC STUDIES/LAB DATA: Includes a CBC notable for anemia with hemoglobin of 10.4 today. Platelet count is normal. Chemistries notable for a creatinine of 1.25, which is similar to historical norms in the record. His cholesterol yesterday was 106 and LDL 56. TSH was normal at 3.9 and vitamin B12 at 481. CT of the brain revealed postoperative changes with encephalomalacia in the right hemisphere. I reviewed the images personally and I agree. Carotid ultrasound study done yesterday was interpreted as normal. EKG from yesterday was normal as well. He had an EEG earlier today, which I reviewed. It reveals breach rhythm in the right frontal hemisphere and a few epileptiform discharges in the right posterior temporal region. IMPRESSION AND PLAN: Impression is that of syncope versus seizure. The episode sounds like a syncopal episode and precipitated by abdominal upset. However, is EEG is abnormal including some epileptiform features. I think it is most prudent to treat him with antiseizure medicines for now. I may ultimately get another opinion at an epilepsy center because of the uncertainty in my mind as to whether or not this was syncope with an abnormal EEG or an actual focal seizure. For now, I recommend treating him with levetiracetam 500 mg twice per day. We will start the first dose today. I think he can be discharged home. He does not drive a motor vehicle and I advised him not to until we evaluate his event from yesterday and come to a conclusion as to whether it was an epileptic event or not. I will discuss my impression with his hospitalist, Javid Ross NP. [id number]/[facility] #: [id number] [facility] HOSPITALIsaak
[2019-09-30] MEDS ORDERED: Lisinopril TAB* 10 MG PO SCH (18:00)
[2019-09-30] MEDS ORDERED: CMCS:Pravastatin (NF) 20 MG TAB PO SCH (18:00)
--- NOTE | 2019-09-30 20:21 | DS ---
CC: Dr. Julio Cesar Agudelo; Dr. Billingsley * DISCHARGE SUMMARY: DATE OF ADMISSION: 09/29/19 DATE OF DISCHARGE: 09/30/19 PROVIDER: Wendy Rowley NP PRIMARY CARE PROVIDER: Dr. Agudelo. ATTENDING PHYSICIAN: Dr. Espinoza * (dictated by Wendy Rowley NP). PRIMARY DIAGNOSIS: Syncope. SECONDARY DIAGNOSES: 1. Hypertension. 2. 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 STUDIES WHILE IN THE HOSPITAL: On 09/29/19, ECG, normal sinus rhythm, rate 89. 09/29/19, CT brain without contrast, impression: Previously seen hematoma in the right temporal and parietal lobe is resolved and there is now encephalomalacia in the region. There is age-related diffuse cerebral and cerebral volume loss and chronic microvascular ischemic disease. There are new postoperative changes in the right temporal, frontal, and parietal craniectomy with cranioplasty, and no acute intracranial pathology. 09/29/19 Ultrasound, abdominal aorta screening on. Aorta: The proximal aorta measures 2.6 x 2.3 cm in diameter, the mid aorta measures 2.0 x 1.8 cm, the distal aorta measures 1.9 x 1.6 cm. Common iliac arteries: The right common iliac artery measures 1.6 x 1.4 cm, the left common iliac artery measures 1.5 x 1.5 cm. Impression: No abdominal aortic aneurysm. 09/29/19 Ultrasound, bilateral carotid, impression: No hemodynamically significant stenosis or occlusion, minimal atherosclerosis at the right carotid bulb and mild atherosclerosis at the origin of the left internal carotid artery. 09/30/19 Electroencephalography: Abnormal EEG due to generalized slowing of rhythms from the right hemisphere, as well what appears to be breach rhythm from the right frontocentral region. There are phase reversing sharp waves in the right posterotemporal region consistent with epileptiform discharges. PERTINENT LAB VALUES: WBC 7.4, HGB 10.4, HCT 30, PLT 209, NA 140, K 3.9, CHL 107 , CO2 26, BUN 19, CR 1.25, INR 1.18, APTT 25.6 CONSULTATIONS WHILE IN THE HOSPITAL: 1. Dr. Jc Billingsley from Neurology. 2. Dr. Ryan Sanchez from Hematology/Oncology. DISCHARGE MEDICATIONS: New meds: 1. Keppra 500 mg by mouth b.i.d. Continued home medications: 1. Aspirin enteric-coated tabs 81 mg p.o. q.a.m. 2. Folic acid 1 mg p.o. daily. 3. Lisinopril 20 mg p.o. q.p.m. 4. Multivitamin 1 tab p.o. daily. 5. Omeprazole 20 mg p.o. q.a.m. 6. Polyethylene glycol 3350, 17 g p.o. q.3 days p.r.n. constipation. 7. Pravastatin 10 mg p.o. q.p.m. 8. Timolol 0.25% ophthalmic solution 1 drop ophthalmic b.i.d. HISTORY OF PRESENT ILLNESS/HOSPITAL COURSE: Mr. Root is a 74-year-old man with a past medical history of hypertension, hemorrhagic stroke. The patient reports that while having dinner with his he had a syncopal episode lasting approximately 1 minute. The patient reports that he does not remember the episode. The patient reports that he did not fall or strike his head; however, he does report that earlier in the day he woke up with headache, nausea , diaphoresis, and abdominal pain. The abdominal pain resolved after loose stool. The patient reports that following the syncopal episode, he did have some trouble with speech, which quickly returned to normal. The patient does report that approximately 1 year ago, he did have hemorrhagic stroke after falling off a ladder and striking head, for which he had craniotomy. While admitted to the ER, the patient was evaluated with brain CT which was negative, a carotid Doppler also negative for stenosis or occlusion, an abdominal ultrasound was negative for AAA, EKG also showed normal sinus rhythm. Mr. Root received 1 L of bolus normal saline while in the ER. And assessed for orthostatic hypotension which he was not. During the hospital stay, the patient maintained normotensive blood pressures. No additional medications were needed for blood pressure control. The patient did not experience any further syncopal episodes. Consultation with Dr. Billingsley from neurology , he ordered an EEG that did show concern for some epileptiform discharges. Seizures could not be completely ruled out. Therefore, Dr. Billingsley started the patient on Keppra 500 mg twice a day, on which he felt that the patient was stable for discharge in that regard. Incidental finding on reviewing the patient's chart by Dr. Olson from 09/13/18, the patient had remote history of lymphoplasmacytic lymphoma or Waldenstrom macroglobulinemia, which was not followed up. The patient had consultation with Dr. Sanchez from hematology/ oncology. Dr. Sanchez has ordered lab work, kappa lambda free chain, protein electrophoresis, immunoglobulins serum, and serum viscosity results will be followed up as an outpatient. PHYSICAL EXAM ON DAY OF DISCHARGE: Please see progress note by Wendy Rowley NP , on 09/30/19. DISCHARGE PLAN AND INSTRUCTIONS: The patient is stable for discharge home. Maintain a regular diet. The patient will continue his medications with addition of levetiracetam per Dr. Billingsley. Activity can be resumed as tolerated , do not drive until cause of syncopal event is known. Call Dr. Billingsley's office for follow up appointment. Call Dr. Sanchez's office for follow up appointment regarding lymphoplasmacytic lymphoma vs. Waldenstrom Macroglobulinemia. Return to the ER for any further syncopal episodes, chest pain, dizziness, shortness of breath, weakness on one side of the body, confusion, changes in vision, or any other concerning symptoms. DISCHARGE DISPOSITION: Home. CONDITION ON DISCHARGE: Stable. TIME SPENT: Approximately 45 were spent on this discharge, approximately half the time was spent at bedside evaluating the patient and discussing the plan of care with the patient and spouse. WENDY ROWLEY, ASHLIE [id number]/[facility] #: [id number] [facility]OSPITALIsaak
[2019-10-03 12:14] LABS: Immunoglobulin A 147 mg/dL (61 - 356); Immunoglobulin G 275 mg/dL (767 - 1590); Immunoglobulin M 6570 mg/dL (37 - 286)
[2019-10-03 14:28] LABS: Kappa Free Light Chain 4.59 mg/dL
[2019-10-03 16:49] LABS: Albumin/Globulin Ratio 0.46; Gamma Globulin 4.8 g/dL (0.6-1.6); Total Protein(PEP) 9.6 g/dL (6.3 - 7.9)
== END 2019-09-30 19:27 | disposition home or self-care (01) ==
LOC: ED 19:00 → MEDTELE 21:56
PROVIDERS: ADMIT Family Medicine; ATTEND Internal Medicine
DX: R55 Syncope and collapse (principal); I10 Essential (primary) hypertension; C83.00 Small cell B-cell lymphoma, unspecified site; C88.0 Waldenstrom macroglobulinemia; K21.9 Gastro-esophageal reflux disease without esophagitis; E78.5 Hyperlipidemia, unspecified; R19.7 Diarrhea, unspecified; R10.9 Unspecified abdominal pain; R51 Headache; N17.9 Acute kidney failure, unspecified; Z86.73 Personal history of transient ischemic attack (TIA), and cerebral infarction without residual deficits; Z79.82 Long term (current) use of aspirin; Z79.899 Other long term (current) drug therapy; Z82.49 Family history of ischemic heart disease and other diseases of the circulatory system
CPT/HCPCS: 36415; 70450; 76706; 80048; 80053; 80061; 81003; 82565; 82607; 82746; 82784; 83605; 83735; 83883; 84155; 84165; 84443; 84484; 84520; 85025; 85610; 85730; 85810; 93005; 93880; 95819; 96360; 96361; 96372; 99284; A9270-GY; G0378; J1644

== ENCOUNTER 2020-01-26 17:08 | Observation (INO) ==
[2020-01-26 18:00] LABS: ABS Lymphocytes 0.3 10^3/ul (1.0-4.8); Eosinophil % 0.2 %; Hematocrit 27 % (42-52); Hemoglobin 9.6 g/dL (14.0-18.0); Lymphocyte % 9.5 %; Mean Corpuscular HGB Conc 35 g/dL (31-36); Mean Corpuscular Hemoglobin 33 pg (27-31); Mean Corpuscular Volume 94 fL (80-94); Mean Platelet Volume 7.3 fL (7.4-10.4); Nucleated Red Blood Cells % 0.3; Platelet Count 125 10^3/uL (150-450); Red Blood Count 2.88 10^6 /uL (4.18-5.48); Red Cell Distribution Width 15 % (10-15); White Blood Count 3.4 10^3/uL (3.5-10.8)
[2020-01-26 18:16] LABS: Albumin/Globulin Ratio 0.5 (1-3); BUN/Creatinine Ratio 17.1 (8-20); Calcium 8.8 mg/dL (8.6-10.3); EGFR African American 60.1 (>60); EGFR Non-African American 49.7 (>60); Globulin 6.5 g/dL (2-4); Magnesium 1.5 mg/dL (1.9-2.7); Potassium 3.2 mmol/L (3.5-5.0); Total Bilirubin 0.2 mg/dL (0.2-1.0); Total Protein 9.5 g/dL (6.4-8.9)
[2020-01-26] MEDS ORDERED: NS 0.9% 1000 ml BAG 1,000 ML IV ONE ×2 (18:24→21:57)
[2020-01-26] MEDS ORDERED: Iodixanol (CONTRAST) 320 MG/ML 100 ML SDV IV ONE (19:07)
[2020-01-26] MEDS ORDERED: Magnesium Sulfate IV 1GM/100ML 1 GM/100 ML BAG IV ONE (19:09)
[2020-01-26 21:51] LABS: Urine Appearance Cloudy; Urine Bilirubin Negative (Negative); Urine Blood Negative (Negative); Urine Color Yellow; Urine Glucose Negative (Negative); Urine Ketones Negative (Negative); Urine Nitrite Negative (Negative); Urine Protein Negative (Negative); Urine Specific Gravity 1.031 (1.010-1.030); Urine Urobilinogen Negative (Negative)
[2020-01-26] MEDS ORDERED: Piperacillin/Tazobac ADVAN(*) 3.375 GM in NS 0.9% 100 ml BAG 100 ML IVPB ONE (21:57)
[2020-01-27] MEDS ORDERED: NS 0.9% 1000 ml BAG 1,000 ML IV ONE (00:57)
[2020-01-27] MEDS ORDERED: methylPREDNISolone SOD 40 mg/ml 1 ml VIAL IV ONE (01:03)
[2020-01-27] MEDS ORDERED: diPHENhydraMINE IV 50 MG/ML 1 ml VIAL (BENADRYL) IV ONE (01:03)
[2020-01-27] MEDS ORDERED: Magnesium Sulfate 2 gm BAG 2 GM/50 ML BAG IVPB ONE (01:28)
[2020-01-27] MEDS ORDERED: NS 0.9% 1000 ml BAG 1,000 ML IV SCH (01:30)
[2020-01-27] MEDS ORDERED: Potassium Chlor 10 meq TAB PO ONE (01:54)
[2020-01-27] MEDS ORDERED: Aspirin EC 81 mg TAB.EC (enteric coated) PO SCH (09:00)
[2020-01-27] MEDS ORDERED: Multivitamins/Minerals TAB PO SCH (09:00)
[2020-01-27 09:02] LABS: ABS Lymphocytes 0.6 10^3/ul (1.0-4.8); ABS Monocytes 0.5 10^3/ul (0-0.8); Eosinophil % 0.2 %; Hematocrit 28 % (42-52); Hemoglobin 9.8 g/dL (14.0-18.0); Lymphocyte % 8.4 %; Mean Corpuscular HGB Conc 35 g/dL (31-36); Mean Corpuscular Hemoglobin 33 pg (27-31); Mean Corpuscular Volume 94 fL (80-94); Mean Platelet Volume 7.6 fL (7.4-10.4); Nucleated Red Blood Cells % 0.2; Platelet Count 126 10^3/uL (150-450); Red Blood Count 2.95 10^6 /uL (4.18-5.48); Red Cell Distribution Width 15 % (10-15)
[2020-01-27 09:19] LABS: BUN/Creatinine Ratio 18.1 (8-20); Calcium 7.9 mg/dL (8.6-10.3); EGFR African American 74.7 (>60); EGFR Non-African American 61.7 (>60); Magnesium 2.4 mg/dL (1.9-2.7); Potassium 4.3 mmol/L (3.5-5.0)
[2020-01-27 13:03] VITALS: BP 116/85
[2020-01-27] MEDS ORDERED: CMCS:Pravastatin 20 mg TAB (NF) PO SCH (18:00)
[2020-01-27] MEDS ORDERED: Timolol 0.25% OPHTH.SOLN BTL OPHTHALMIC SCH (21:00)
== END 2020-01-27 15:20 | disposition home or self-care (01) ==
LOC: ED 17:08 → MED 17:08
PROVIDERS: ADMIT Internal Medicine; ATTEND Internal Medicine

== ENCOUNTER 2020-10-03 02:56 | Observation (INO) ==
[2020-10-03] MEDS ORDERED: NS 0.9% 1000 ml BAG 1,000 ML IV ONE (03:15)
[2020-10-03 03:29] LABS: ABS Eosinophils 0.2 10^3/ul (0-0.6); ABS Lymphocytes 1.4 10^3/ul (1.0-4.8); ABS Monocytes 0.8 10^3/ul (0-0.8); ABS Neutrophils 4.5 10^3/ul (1.5-7.7); Eosinophil % 2.5 %; Hematocrit 35 % (42-52); Hemoglobin 11.8 g/dL (14.0-18.0); Lymphocyte % 20.8 %; Mean Corpuscular HGB Conc 34 g/dL (31-36); Mean Corpuscular Hemoglobin 30 pg (27-31); Mean Corpuscular Volume 90 fL (80-94); Mean Platelet Volume 7.7 fL (7.4-10.4); Platelet Count 297 10^3/uL (150-450); Red Blood Count 3.91 10^6 /uL (4.18-5.48); Red Cell Distribution Width 14 % (10-15); White Blood Count 6.9 10^3/uL (3.5-10.8)
[2020-10-03 03:37] LABS: Activated Partial Thrombo Time 41.4 seconds (26.0-38.0); INR 1.16 (0.82-1.09)
[2020-10-03 03:44] LABS: Albumin 3.5 g/dL (3.2-5.2); Albumin/Globulin Ratio 0.6 (1-3); Calcium 9.4 mg/dL (8.6-10.3); EGFR African American 80.9 (>60); EGFR Non-African American 66.8 (>60); Globulin 5.4 g/dL (2-4); Potassium 4.1 mmol/L (3.5-5.0); Total Bilirubin 0.3 mg/dL (0.2-1.0); Total Protein 8.9 g/dL (6.4-8.9)
[2020-10-03] MEDS ORDERED: NS 0.9% 1000 ml BAG 1,000 ML IV SCH ×2 (05:45→16:45)
[2020-10-03 07:01] LABS: Hematocrit 32 % (42-52); Hemoglobin 10.7 g/dL (14.0-18.0)
[2020-10-03] MEDS: Pantoprazole VIAL 40 MG VIAL IV SCH (08:36)
[2020-10-03] MEDS ORDERED: PEG 3000 GI LAVAGE 1 GALLON PO ONE (08:40)
[2020-10-03 11:59] LABS: Hematocrit 31 % (42-52); Hemoglobin 10.2 g/dL (14.0-18.0)
[2020-10-03 18:32] LABS: Hematocrit 30 % (42-52); Hemoglobin 10.2 g/dL (14.0-18.0)
[2020-10-03] MEDS: Timolol 0.25% OPHTH.SOLN BTL OPHTHALMIC SCH (20:38)
[2020-10-03 21:07] LABS: Hematocrit 27 % (42-52); Hemoglobin 9.2 g/dL (14.0-18.0)
[2020-10-04 00:57] LABS: Hematocrit 30 % (42-52); Hemoglobin 9.9 g/dL (14.0-18.0)
[2020-10-04 07:07] LABS: ABS Eosinophils 0.2 10^3/ul (0-0.6); ABS Monocytes 0.6 10^3/ul (0-0.8); ABS Neutrophils 3.1 10^3/ul (1.5-7.7); Eosinophil % 3.1 %; Hematocrit 30 % (42-52); Hemoglobin 9.9 g/dL (14.0-18.0); Lymphocyte % 19.9 %; Mean Corpuscular HGB Conc 33 g/dL (31-36); Mean Corpuscular Hemoglobin 30 pg (27-31); Mean Corpuscular Volume 90 fL (80-94); Mean Platelet Volume 8.2 fL (7.4-10.4); Platelet Count 230 10^3/uL (150-450); Red Blood Count 3.32 10^6 /uL (4.18-5.48); Red Cell Distribution Width 14 % (10-15); White Blood Count 4.8 10^3/uL (3.5-10.8)
[2020-10-04 07:16] LABS: Calcium 8.8 mg/dL (8.6-10.3); EGFR African American 99.8 (>60); EGFR Non-African American 82.5 (>60); Magnesium 1.8 mg/dL (1.9-2.7); Potassium 3.7 mmol/L (3.5-5.0)
[2020-10-04] MEDS: Pantoprazole VIAL 40 MG VIAL IV SCH (09:29)
[2020-10-04] MEDS ORDERED: Magnesium Sulfate 2 gm BAG 2 GM/50 ML BAG IVPB ONE (10:02)
[2020-10-04] MEDS ORDERED: Midazolam 10 mg/10 ml VIAL 1 mg/ml 10 ml VIAL (10 mg) ONE (13:05)
[2020-10-04] MEDS ORDERED: fentaNYL 100 mcg/2 ml 50 MCG/ML VIAL ONE (13:05)
[2020-10-04] MEDS: Timolol 0.25% OPHTH.SOLN BTL OPHTHALMIC SCH (20:01)
[2020-10-05 06:52] LABS: ABS Eosinophils 0.1 10^3/ul (0-0.6); ABS Lymphocytes 1.1 10^3/ul (1.0-4.8); ABS Monocytes 0.7 10^3/ul (0-0.8); Eosinophil % 2.9 %; Hematocrit 30 % (42-52); Lymphocyte % 21.4 %; Mean Corpuscular HGB Conc 33 g/dL (31-36); Mean Corpuscular Hemoglobin 30 pg (27-31); Mean Corpuscular Volume 90 fL (80-94); Mean Platelet Volume 7.6 fL (7.4-10.4); Platelet Count 249 10^3/uL (150-450); Red Blood Count 3.33 10^6 /uL (4.18-5.48); Red Cell Distribution Width 14 % (10-15)
[2020-10-05 07:08] LABS: BUN/Creatinine Ratio 7.6 (8-20); Calcium 9.1 mg/dL (8.6-10.3); EGFR African American 97.3 (>60); EGFR Non-African American 80.4 (>60); Potassium 3.7 mmol/L (3.5-5.0)
[2020-10-05] MEDS ORDERED: Psyllium PAK PO PRN (09:27)
[2020-10-05 11:16] VITALS: BP 118/73
== END 2020-10-05 16:00 | disposition home or self-care (01) ==
LOC: SSU 02:56 → ED 02:56 → SSU 10:01
PROVIDERS: ADMIT Pediatrics; ATTEND Internal Medicine

== ENCOUNTER 2022-08-16 11:45 | Inpatient (IN) ==
[2022-08-16] MEDS ORDERED: Ondansetron 4 mg VIAL 2 MG/ML 2 ml VIAL IV ONE (13:14)
[2022-08-16] MEDS ORDERED: Morphine 4 MG/ML VIAL (1 ml) IV ONE (13:14)
[2022-08-16 13:31] LABS: ABS Eosinophils 0.1 10^3/ul (0-0.6); ABS Lymphocytes 0.9 10^3/ul (1.0-4.8); ABS Monocytes 0.8 10^3/ul (0-0.8); ABS Neutrophils 7.5 10^3/ul (1.5-7.7); Eosinophil % 1.3 %; Hematocrit 42 % (42-52); Hemoglobin 13.9 g/dL (14.0-18.0); Lymphocyte % 9.3 %; Mean Corpuscular HGB Conc 33 g/dL (31-36); Mean Corpuscular Hemoglobin 29 pg (27-31); Mean Corpuscular Volume 90 fL (80-94); Mean Platelet Volume 8.1 fL (7.4-10.4); Platelet Count 243 10^3/uL (150-450); Red Blood Count 4.71 10^6 /uL (4.18-5.48); Red Cell Distribution Width 14 % (10-15); White Blood Count 9.3 10^3/uL (3.5-10.8)
[2022-08-16 14:03] LABS: Activated Partial Thrombo Time 36.6 seconds (26.0-38.0); INR 1.16 (0.88-1.18)
[2022-08-16 14:25] LABS: Calcium 9.7 mg/dL (8.6-10.3); Creatinine, Serum 0.94 mg/dL (0.67-1.17); Potassium 4.6 mmol/L (3.5-5.0); eGFR CKD-EPI 84.5 (>60)
[2022-08-16] MEDS ORDERED: Heparin 5000 UNITS/ML 1 mL VIAL SUBCUT SCH (15:00)
[2022-08-16] MEDS ORDERED: Morphine 2 MG/ML SYRINGE IV PRN (15:01)
[2022-08-16] MEDS ORDERED: Psyllium PAK PO PRN (15:41)
[2022-08-16] MEDS ORDERED: Polyethylene Glycol 3350 17 GM PACKET PO PRN (16:05)
[2022-08-16] MEDS ORDERED: Senna TAB 8.6 mg TAB PO PRN (16:05)
[2022-08-16] MEDS ORDERED: Lactated Ringers 1000 ml BAG 1,000 ML IV ONE (16:35)
[2022-08-16 17:07] LABS: Hematocrit 37 % (42-52); Hemoglobin 12.2 g/dL (14.0-18.0); Mean Corpuscular HGB Conc 33 g/dL (31-36); Mean Corpuscular Hemoglobin 29 pg (27-31); Mean Corpuscular Volume 89 fL (80-94); Platelet Count 201 10^3/uL (150-450); Red Blood Count 4.18 10^6 /uL (4.18-5.48); Red Cell Distribution Width 14 % (10-15); White Blood Count 9.4 10^3/uL (3.5-10.8)
[2022-08-16] MEDS ORDERED: Timolol 0.25% OPHTH.SOLN BTL BOTH EYES SCH (21:00)
[2022-08-16] MEDS: CMCS:Pravastatin 20 mg TAB (NF) PO SCH (22:06)
[2022-08-17 05:40] LABS: ABS Eosinophils 0.2 10^3/ul (0-0.6); ABS Lymphocytes 0.7 10^3/ul (1.0-4.8); ABS Monocytes 0.7 10^3/ul (0-0.8); ABS Neutrophils 5.9 10^3/ul (1.5-7.7); Eosinophil % 2.7 %; Hematocrit 39 % (42-52); Hemoglobin 13.2 g/dL (14.0-18.0); Lymphocyte % 9.3 %; Mean Corpuscular HGB Conc 34 g/dL (31-36); Mean Corpuscular Hemoglobin 30 pg (27-31); Mean Corpuscular Volume 89 fL (80-94); Mean Platelet Volume 8.2 fL (7.4-10.4); Platelet Count 212 10^3/uL (150-450); Red Cell Distribution Width 14 % (10-15); White Blood Count 7.6 10^3/uL (3.5-10.8)
[2022-08-17 05:46] LABS: INR 1.31 (0.88-1.18)
[2022-08-17 06:15] LABS: Calcium 9.4 mg/dL (8.6-10.3); Creatinine, Serum 0.94 mg/dL (0.67-1.17); Magnesium 1.9 mg/dL (1.9-2.7); Potassium 4.4 mmol/L (3.5-5.0); eGFR CKD-EPI 84.5 (>60)
[2022-08-17] MEDS: Morphine 2 MG/ML SYRINGE IV PRN ×2 (08:05→13:47)
[2022-08-17] MEDS: Acetaminophen IV 1 GM/100ML 1,000 MG/100 ML BAG IV PRN ×2 (08:06→16:19)
[2022-08-17] MEDS: Timolol 0.25% OPHTH.SOLN BTL BOTH EYES SCH (08:09)
[2022-08-17] MEDS ORDERED: NS 0.9% 1000 ml BAG 1,000 ML IV SCH (16:45)
[2022-08-17] MEDS: CMCS:Pravastatin 20 mg TAB (NF) PO SCH (20:49)
[2022-08-18] MEDS: Timolol 0.25% OPHTH.SOLN BTL BOTH EYES SCH (07:49)
[2022-08-18] MEDS: Lactated Ringers 1000 ml BAG 1,000 ML IV SCH ×2 (11:10→21:19)
[2022-08-18] MEDS ORDERED: ceFAZolin 2 GM PREMIX 2 GM/50 ML BAG ONE (12:33)
[2022-08-18] MEDS ORDERED: Ketamine HCL 50 mg/ml 10 ml VIAL (500 MG) ONE (15:31)
[2022-08-18] MEDS ORDERED: Propofol 10 MG/ML 20 ML BTL ONE (15:31)
[2022-08-18] MEDS ORDERED: Midazolam 2 mg/2 ml VIAL 1 mg/ml 2 ml VIAL (2 mg) ONE (15:34)
[2022-08-18] MEDS ORDERED: Dexamethasone IV 4 MG/ML VIAL 1 ml VIAL ONE (16:02)
[2022-08-18] MEDS ORDERED: Ondansetron 4 mg VIAL 2 MG/ML 2 ml VIAL ONE (16:02)
[2022-08-18] MEDS ORDERED: Lidocaine 2% PF 5 ML VIAL ONE (16:02)
[2022-08-18] MEDS ORDERED: Naloxone 0.4 mg VIAL 0.4 mg/ml 1 ml VIAL IV PRN (16:40)
[2022-08-18] MEDS ORDERED: Ondansetron 4 mg VIAL 2 MG/ML 2 ml VIAL IV PRN (16:40)
[2022-08-18] MEDS ORDERED: oxyCODONE/Acetamin 5/325 mg TAB PO PRN (16:40)
[2022-08-18] MEDS ORDERED: fentaNYL 100 mcg/2 ml 50 MCG/ML VIAL IV PRN (16:40)
[2022-08-18] MEDS ORDERED: Glycopyrrolate IV 0.2 MG/ML 1 ML VIAL ONE (16:48)
[2022-08-18] MEDS ORDERED: Vancomycin 1,000 MG VIAL ONE (17:57)
[2022-08-18] MEDS ORDERED: fentaNYL 100 mcg/2 ml 50 MCG/ML VIAL ONE (19:14)
[2022-08-18] MEDS: CMCS:Pravastatin 20 mg TAB (NF) PO SCH (21:25)
[2022-08-18] MEDS: Acetaminophen IV 1 GM/100ML 1,000 MG/100 ML BAG IV PRN (22:22)
[2022-08-19] MEDS ORDERED: Morphine 2 MG/ML SYRINGE IV PRN (00:05)
[2022-08-19] MEDS: ceFAZolin 1 GM in Dextrose 1 GM/50 ML BAG IVPB SCH ×3 (01:14→16:56)
[2022-08-19 06:22] LABS: Hematocrit 34 % (42-52); Hemoglobin 11.2 g/dL (14.0-18.0); Mean Platelet Volume 8.8 fL (7.4-10.4); Platelet Count 149 10^3/uL (150-450)
[2022-08-19 06:38] LABS: Calcium 8.6 mg/dL (8.6-10.3); Creatinine, Serum 0.96 mg/dL (0.67-1.17); Potassium 4.4 mmol/L (3.5-5.0); eGFR CKD-EPI 82.4 (>60)
[2022-08-19] MEDS: Lactated Ringers 1000 ml BAG 1,000 ML IV SCH (08:18)
[2022-08-19] MEDS: Timolol 0.25% OPHTH.SOLN BTL BOTH EYES SCH (08:35)
[2022-08-19] MEDS: Enoxaparin 40 MG/0.4 ML SYR SUBCUT SCH (12:21)
[2022-08-19] MEDS ORDERED: Iohexol 350 (CONTRAST) 500 ML MDV IV ONE (13:53)
[2022-08-19 15:30] LABS: ABS Lymphocytes 0.6 10^3/ul (1.0-4.8); ABS Monocytes 1.2 10^3/ul (0-0.8); ABS Neutrophils 7.1 10^3/ul (1.5-7.7); Eosinophil % 0.4 %; Hematocrit 30 % (42-52); Lymphocyte % 6.5 %; Mean Corpuscular HGB Conc 33 g/dL (31-36); Mean Corpuscular Hemoglobin 29 pg (27-31); Mean Corpuscular Volume 89 fL (80-94); Mean Platelet Volume 8.1 fL (7.4-10.4); Platelet Count 141 10^3/uL (150-450); Red Blood Count 3.41 10^6 /uL (4.18-5.48); Red Cell Distribution Width 14 % (10-15); White Blood Count 8.9 10^3/uL (3.5-10.8)
[2022-08-19 16:53] LABS: Urine Appearance Clear; Urine Bilirubin Negative (Negative); Urine Blood Negative (Negative); Urine Color Yellow; Urine Glucose Negative (Negative); Urine Ketones Negative (Negative); Urine Nitrite Negative (Negative); Urine Protein Negative (Negative); Urine Specific Gravity 1.038 (1.002-1.030); Urine Urobilinogen Negative (Negative)
[2022-08-19] MEDS: CMCS:Pravastatin 20 mg TAB (NF) PO SCH (20:36)
[2022-08-20 06:11] LABS: Hematocrit 32 % (42-52); Hemoglobin 10.6 g/dL (14.0-18.0); Mean Platelet Volume 8.9 fL (7.4-10.4); Platelet Count 162 10^3/uL (150-450)
[2022-08-20 06:26] LABS: Calcium 8.5 mg/dL (8.6-10.3); Creatinine, Serum 1.29 mg/dL (0.67-1.17); Potassium 4.1 mmol/L (3.5-5.0); eGFR CKD-EPI 57.8 (>60)
[2022-08-20] MEDS: Timolol 0.25% OPHTH.SOLN BTL BOTH EYES SCH (08:32)
[2022-08-20 09:01] LABS: Mean Corpuscular HGB Conc 33 g/dL (31-36); Mean Corpuscular Hemoglobin 30 pg (27-31); Mean Corpuscular Volume 91 fL (80-94); Red Blood Count 3.57 10^6 /uL (4.18-5.48); Red Cell Distribution Width 15 % (10-15); White Blood Count 10.4 10^3/uL (3.5-10.8)
[2022-08-20] MEDS: Enoxaparin 40 MG/0.4 ML SYR SUBCUT SCH (11:13)
[2022-08-20] MEDS ORDERED: NS 0.9% 1000 ml BAG 1,000 ML IV ONE (11:41)
[2022-08-20] MEDS: NS 0.9% 1000 ml BAG 1,000 ML IV SCH (16:21)
[2022-08-20 16:50] LABS: High Sensitivity Troponin 1 Hr 14 pg/mL (<20)
[2022-08-20] MEDS: CMCS:Pravastatin 20 mg TAB (NF) PO SCH (20:17)
[2022-08-21 00:58] LABS: ABS Eosinophils 0.2 10^3/ul (0-0.6); ABS Lymphocytes 0.8 10^3/ul (1.0-4.8); ABS Monocytes 1.1 10^3/ul (0-0.8); ABS Neutrophils 5.9 10^3/ul (1.5-7.7); Eosinophil % 2.5 %; Hematocrit 26 % (42-52); Hemoglobin 8.5 g/dL (14.0-18.0); Mean Corpuscular HGB Conc 33 g/dL (31-36); Mean Corpuscular Hemoglobin 29 pg (27-31); Mean Corpuscular Volume 89 fL (80-94); Mean Platelet Volume 8.2 fL (7.4-10.4); Platelet Count 153 10^3/uL (150-450); Red Blood Count 2.93 10^6 /uL (4.18-5.48); Red Cell Distribution Width 14 % (10-15); White Blood Count 8.1 10^3/uL (3.5-10.8)
[2022-08-21 01:27] LABS: Calcium 7.6 mg/dL (8.6-10.3); Creatinine, Serum 0.92 mg/dL (0.67-1.17); Potassium 3.9 mmol/L (3.5-5.0); eGFR CKD-EPI 86.7 (>60)
[2022-08-21] MEDS: NS 0.9% 1000 ml BAG 1,000 ML IV SCH (02:04)
[2022-08-21 02:44] LABS: Urine Appearance Cloudy; Urine Bacteria Absent (Absent); Urine Bilirubin Negative (Negative); Urine Blood 1+ (Negative); Urine Color Yellow; Urine Glucose Negative (Negative); Urine Ketones Negative (Negative); Urine Nitrite Negative (Negative); Urine Protein 1+(30 mg/dL) (Negative); Urine Red Blood Cell Trace(0-2/hpf) (Absent); Urine Specific Gravity 1.018 (1.002-1.030); Urine Urobilinogen Negative (Negative); Urine White Blood Cell Trace(0-5/hpf) (Absent)
[2022-08-21] MEDS: Timolol 0.25% OPHTH.SOLN BTL BOTH EYES SCH (08:17)
[2022-08-21 11:15] VITALS: BP 95/57
[2022-08-21] MEDS: Enoxaparin 40 MG/0.4 ML SYR SUBCUT SCH (11:28)
[2022-08-21 11:44] LABS: Albumin 2.5 g/dL (3.2-5.2); Direct Bilirubin 0.2 mg/dL (0.03-0.18); Globulin 2.6 g/dL (2-4); Indirect Bilirubin 0.6 mg/dL (0.3-1.0); Total Bilirubin 0.8 mg/dL (0.2-1.0); Total Protein 5.1 g/dL (6.4-8.9)
[2022-08-21] MEDS ORDERED: Aspirin EC 81 mg TAB.EC (enteric coated) PO SCH (14:00)
== END 2022-08-21 14:30 | DRG 301 ==
LOC: ED 11:45 → EDHOLD 11:45 → SUATTDRO 14:56 → SSU 18:11 → SUATTDRO 08-17 09:21
PROVIDERS: ADMIT Internal Medicine; ATTEND Internal Medicine

== ENCOUNTER 2022-08-21 13:20 | Inpatient (IN) ==
[2022-08-21] MEDS ORDERED: Senna TAB 8.6 mg TAB PO PRN (16:17)
[2022-08-21] MEDS ORDERED: CMC:Pravastatin 20 mg TAB (NF) PO SCH (17:00)
[2022-08-21] MEDS: Magnesium Hydroxide LIQ 30 ML UDC PO PRN (18:20)
[2022-08-21] MEDS: Latanoprost 0.005% 2.5 ml BTL BOTH EYES SCH (21:32)
[2022-08-21] MEDS: CMC:Pravastatin 20 mg TAB (NF) PO SCH (21:33)
[2022-08-22 07:01] LABS: ABS Eosinophils 0.2 10^3/ul (0-0.6); ABS Lymphocytes 0.7 10^3/ul (1.0-4.8); ABS Monocytes 0.9 10^3/ul (0-0.8); ABS Neutrophils 4.3 10^3/ul (1.5-7.7); Eosinophil % 3.8 %; Hematocrit 25 % (42-52); Hemoglobin 8.4 g/dL (14.0-18.0); Lymphocyte % 11.4 %; Mean Corpuscular HGB Conc 33 g/dL (31-36); Mean Corpuscular Hemoglobin 30 pg (27-31); Mean Corpuscular Volume 89 fL (80-94); Mean Platelet Volume 7.9 fL (7.4-10.4); Platelet Count 176 10^3/uL (150-450); Red Blood Count 2.84 10^6 /uL (4.18-5.48); Red Cell Distribution Width 14 % (10-15); White Blood Count 6.2 10^3/uL (3.5-10.8)
[2022-08-22 07:55] LABS: Albumin 2.5 g/dL (3.2-5.2); Calcium 7.8 mg/dL (8.6-10.3); Creatinine, Serum 0.79 mg/dL (0.67-1.17); Globulin 2.6 g/dL (2-4); Potassium 4.2 mmol/L (3.5-5.0); Total Bilirubin 0.7 mg/dL (0.2-1.0); Total Protein 5.1 g/dL (6.4-8.9); eGFR CKD-EPI 92.6 (>60)
[2022-08-22] MEDS: Magnesium Hydroxide LIQ 30 ML UDC PO PRN (08:38)
[2022-08-22] MEDS: Enoxaparin 40 MG/0.4 ML SYR SUBCUT SCH (08:39)
[2022-08-22] MEDS: Timolol 0.25% OPHTH.SOLN BTL BOTH EYES SCH (08:41)
[2022-08-22] MEDS: Aspirin EC 81 mg TAB.EC (enteric coated) PO SCH (08:42)
[2022-08-22] MEDS ORDERED: Enoxaparin 40 MG/0.4 ML SYR SUBCUT SCH (12:00)
[2022-08-22] MEDS: CMC:Pravastatin 20 mg TAB (NF) PO SCH (20:45)
[2022-08-22] MEDS: Latanoprost 0.005% 2.5 ml BTL BOTH EYES SCH (20:47)
[2022-08-23 06:13] LABS: ABS Eosinophils 0.3 10^3/ul (0-0.6); ABS Lymphocytes 0.7 10^3/ul (1.0-4.8); ABS Monocytes 0.9 10^3/ul (0-0.8); Eosinophil % 4.9 %; Hematocrit 27 % (42-52); Lymphocyte % 11.8 %; Mean Corpuscular HGB Conc 33 g/dL (31-36); Mean Corpuscular Hemoglobin 30 pg (27-31); Mean Corpuscular Volume 90 fL (80-94); Mean Platelet Volume 7.7 fL (7.4-10.4); Platelet Count 240 10^3/uL (150-450); Red Blood Count 3.05 10^6 /uL (4.18-5.48); Red Cell Distribution Width 14 % (10-15); White Blood Count 5.9 10^3/uL (3.5-10.8)
[2022-08-23] MEDS: Aspirin EC 81 mg TAB.EC (enteric coated) PO SCH (07:53)
[2022-08-23] MEDS: Timolol 0.25% OPHTH.SOLN BTL BOTH EYES SCH (07:54)
[2022-08-23] MEDS: Enoxaparin 40 MG/0.4 ML SYR SUBCUT SCH (07:54)
[2022-08-23] MEDS: Magnesium Hydroxide LIQ 30 ML UDC PO PRN (15:08)
[2022-08-23] MEDS ORDERED: Sodium Phosphate ADULT ENEMA 133 ML BTL PR PRN (18:17)
[2022-08-23] MEDS: CMC:Pravastatin 20 mg TAB (NF) PO SCH (20:16)
[2022-08-23] MEDS: Latanoprost 0.005% 2.5 ml BTL BOTH EYES SCH (20:17)
[2022-08-24 07:40] LABS: ABS Eosinophils 0.3 10^3/ul (0-0.6); ABS Lymphocytes 0.8 10^3/ul (1.0-4.8); ABS Neutrophils 5.4 10^3/ul (1.5-7.7); Eosinophil % 3.6 %; Hematocrit 28 % (42-52); Hemoglobin 9.3 g/dL (14.0-18.0); Lymphocyte % 10.8 %; Mean Corpuscular HGB Conc 33 g/dL (31-36); Mean Corpuscular Hemoglobin 30 pg (27-31); Mean Corpuscular Volume 90 fL (80-94); Mean Platelet Volume 7.7 fL (7.4-10.4); Platelet Count 301 10^3/uL (150-450); Red Blood Count 3.14 10^6 /uL (4.18-5.48); Red Cell Distribution Width 14 % (10-15); White Blood Count 7.6 10^3/uL (3.5-10.8)
[2022-08-24] MEDS: Timolol 0.25% OPHTH.SOLN BTL BOTH EYES SCH (08:32)
[2022-08-24] MEDS: Aspirin EC 81 mg TAB.EC (enteric coated) PO SCH (08:33)
[2022-08-24] MEDS: Enoxaparin 40 MG/0.4 ML SYR SUBCUT SCH (08:33)
[2022-08-24] MEDS: Polyethylene Glycol 3350 17 GM PACKET PO PRN (09:17)
[2022-08-24] MEDS: Latanoprost 0.005% 2.5 ml BTL BOTH EYES SCH (21:43)
[2022-08-24] MEDS: CMC:Pravastatin 20 mg TAB (NF) PO SCH (21:43)
[2022-08-25] MEDS: Polyethylene Glycol 3350 17 GM PACKET PO PRN (07:17)
[2022-08-25] MEDS: Aspirin EC 81 mg TAB.EC (enteric coated) PO SCH (07:18)
[2022-08-25] MEDS: Timolol 0.25% OPHTH.SOLN BTL BOTH EYES SCH (07:19)
[2022-08-25] MEDS: Enoxaparin 40 MG/0.4 ML SYR SUBCUT SCH (07:19)
[2022-08-25] MEDS: Latanoprost 0.005% 2.5 ml BTL BOTH EYES SCH (21:00)
[2022-08-25] MEDS: CMC:Pravastatin 20 mg TAB (NF) PO SCH (21:01)
[2022-08-26] MEDS: Enoxaparin 40 MG/0.4 ML SYR SUBCUT SCH (08:15)
[2022-08-26] MEDS: Aspirin EC 81 mg TAB.EC (enteric coated) PO SCH (08:15)
[2022-08-26] MEDS: Timolol 0.25% OPHTH.SOLN BTL BOTH EYES SCH (08:19)
[2022-08-26] MEDS: Latanoprost 0.005% 2.5 ml BTL BOTH EYES SCH (21:24)
[2022-08-26] MEDS: CMC:Pravastatin 20 mg TAB (NF) PO SCH (21:24)
[2022-08-27] MEDS: Timolol 0.25% OPHTH.SOLN BTL BOTH EYES SCH (07:42)
[2022-08-27] MEDS: Aspirin EC 81 mg TAB.EC (enteric coated) PO SCH (07:42)
[2022-08-27] MEDS: Enoxaparin 40 MG/0.4 ML SYR SUBCUT SCH (07:43)
[2022-08-27] MEDS: CMC:Pravastatin 20 mg TAB (NF) PO SCH (20:45)
[2022-08-27] MEDS: Latanoprost 0.005% 2.5 ml BTL BOTH EYES SCH (20:46)
[2022-08-28] MEDS: Aspirin EC 81 mg TAB.EC (enteric coated) PO SCH (08:09)
[2022-08-28] MEDS: Enoxaparin 40 MG/0.4 ML SYR SUBCUT SCH (08:10)
[2022-08-28] MEDS: Timolol 0.25% OPHTH.SOLN BTL BOTH EYES SCH (08:12)
[2022-08-28] MEDS: Latanoprost 0.005% 2.5 ml BTL BOTH EYES SCH (20:58)
[2022-08-28] MEDS: CMC:Pravastatin 20 mg TAB (NF) PO SCH (20:58)
[2022-08-29 06:29] LABS: ABS Eosinophils 0.4 10^3/ul (0-0.6); ABS Lymphocytes 1.1 10^3/ul (1.0-4.8); ABS Monocytes 0.8 10^3/ul (0-0.8); ABS Neutrophils 4.1 10^3/ul (1.5-7.7); Eosinophil % 5.8 %; Hematocrit 30 % (42-52); Hemoglobin 9.9 g/dL (14.0-18.0); Lymphocyte % 16.7 %; Mean Corpuscular HGB Conc 33 g/dL (31-36); Mean Corpuscular Hemoglobin 30 pg (27-31); Mean Corpuscular Volume 91 fL (80-94); Platelet Count 585 10^3/uL (150-450); Red Blood Count 3.36 10^6 /uL (4.18-5.48); Red Cell Distribution Width 15 % (10-15); White Blood Count 6.3 10^3/uL (3.5-10.8)
[2022-08-29 07:00] LABS: Albumin 3.3 g/dL (3.2-5.2); Albumin/Globulin Ratio 1.1 (1-3); Creatinine, Serum 0.87 mg/dL (0.67-1.17); Globulin 2.9 g/dL (2-4); Potassium 4.5 mmol/L (3.5-5.0); Total Bilirubin 0.6 mg/dL (0.2-1.0); Total Protein 6.2 g/dL (6.4-8.9)
[2022-08-29] MEDS: Aspirin EC 81 mg TAB.EC (enteric coated) PO SCH (07:35)
[2022-08-29] MEDS: Enoxaparin 40 MG/0.4 ML SYR SUBCUT SCH (07:36)
[2022-08-29] MEDS: Timolol 0.25% OPHTH.SOLN BTL BOTH EYES SCH (07:36)
[2022-08-29] MEDS: Latanoprost 0.005% 2.5 ml BTL BOTH EYES SCH (21:22)
[2022-08-29] MEDS: CMC:Pravastatin 20 mg TAB (NF) PO SCH (21:24)
[2022-08-30] MEDS: Aspirin EC 81 mg TAB.EC (enteric coated) PO SCH (08:16)
[2022-08-30] MEDS: Enoxaparin 40 MG/0.4 ML SYR SUBCUT SCH (08:17)
[2022-08-30] MEDS: Timolol 0.25% OPHTH.SOLN BTL BOTH EYES SCH (10:22)
[2022-08-30] MEDS: CMC:Pravastatin 20 mg TAB (NF) PO SCH (20:21)
[2022-08-30] MEDS: Latanoprost 0.005% 2.5 ml BTL BOTH EYES SCH (20:25)
[2022-08-31] MEDS: Timolol 0.25% OPHTH.SOLN BTL BOTH EYES SCH (07:23)
[2022-08-31] MEDS: Aspirin EC 81 mg TAB.EC (enteric coated) PO SCH (07:23)
[2022-08-31] MEDS: Enoxaparin 40 MG/0.4 ML SYR SUBCUT SCH (07:24)
[2022-08-31] MEDS: CMC:Pravastatin 20 mg TAB (NF) PO SCH (20:47)
[2022-08-31] MEDS: Latanoprost 0.005% 2.5 ml BTL BOTH EYES SCH (20:47)
[2022-09-01] MEDS: Enoxaparin 40 MG/0.4 ML SYR SUBCUT SCH (08:02)
[2022-09-01] MEDS: Aspirin EC 81 mg TAB.EC (enteric coated) PO SCH (08:02)
[2022-09-01] MEDS: Timolol 0.25% OPHTH.SOLN BTL BOTH EYES SCH (08:06)
[2022-09-01] MEDS: CMC:Pravastatin 20 mg TAB (NF) PO SCH (21:37)
[2022-09-01] MEDS: Latanoprost 0.005% 2.5 ml BTL BOTH EYES SCH (21:38)
[2022-09-02 04:44] VITALS: BP 134/89
[2022-09-02] MEDS: Timolol 0.25% OPHTH.SOLN BTL BOTH EYES SCH (08:55)
[2022-09-02] MEDS: Aspirin EC 81 mg TAB.EC (enteric coated) PO SCH (08:55)
[2022-09-02] MEDS: Enoxaparin 40 MG/0.4 ML SYR SUBCUT SCH (10:03)
== END 2022-09-02 14:37 | disposition home or self-care (01) | DRG 560 ==
LOC: PMRU 15:27
PROVIDERS: ADMIT Physical Medicine & Rehabilitation; ATTEND Physical Medicine & Rehabilitation

== ENCOUNTER 2024-03-05 18:44 | Inpatient (IN) ==
[2024-03-05 19:17] LABS: ABS Lymphocytes 0.5 10^3/uL (1.0-4.8); ABS Monocytes 0.8 10^3/uL (0.0-1.1); ABS Neutrophils 6.5 10^3/uL (1.5-7.6); Hematocrit 42.1 % (38-53); Hemoglobin 14.3 g/dL (13.2-16.3); Lymphocyte % 6.2 %; Mean Corpuscular Hemoglobin 31.3 pg (27-33); Mean Corpuscular Hgb Conc 34.1 g/dL (31-36); Mean Corpuscular Volume 91.8 fL (80-97); Mean Platelet Volume 7.8 fL (7.5-11.2); Platelet Count 161 10^3/uL (150-450); Red Blood Count 4.58 10^6/uL (4.06-5.63); Red Cell Distribution Width 13.8 % (12-17); White Blood Count 7.8 10^3/uL (3.6-10.2)
[2024-03-05 19:23] LABS: INR 1.38 (0.85-1.14); Urine Appearance Clear; Urine Bilirubin Negative (Negative); Urine Blood Negative (Negative); Urine Color Yellow; Urine Glucose Negative (Negative); Urine Ketones Negative (Negative); Urine Nitrite Negative (Negative); Urine Protein 1+ (>=30 mg/dL) (Negative); Urine Specific Gravity 1.026 (1.002-1.030); Urine Urobilinogen Negative (Negative); Urine pH 5.5 (5.0-8.0)
[2024-03-05 19:30] LABS: Urine Bacteria Absent /HPF (Absent); Urine Red Blood Cell 1+(3-5/hpf) /HPF (0-Trace); Urine White Blood Cell Trace(0-5/hpf) /HPF (0-Trace)
[2024-03-05 20:12] LABS: Albumin/Globulin Ratio 1.2 (1-3); Calcium 8.9 mg/dL (8.6-10.3); Creatinine, Serum 0.91 mg/dL (0.67-1.17); Globulin 3.4 g/dL (2-4); Potassium 4.3 mmol/L (3.5-5.0); Total Bilirubin 0.6 mg/dL (0.2-1.0); Total Protein 7.4 g/dL (6.4-8.9); eGFR CKD-EPI 86.8 (>60)
[2024-03-05] MEDS: cefTRIAXone 1 gm/50 mL D5W 1 GM/50 ML BAG IV ONE (20:56)
[2024-03-05 20:57] LABS: C Reactive Protein 116.55 mg/L (<8.01)
[2024-03-05 21:01] LABS: High Sensitivity Troponin 1 Hr 15 pg/mL (<20)
[2024-03-05] MEDS: Azithromycin 500 mg/250 ml NS 500 MG/250 ML BAG IVPB ONE (21:36)
[2024-03-05] MEDS ORDERED: Ondansetron 4 mg VIAL 2 MG/ML 2 ml VIAL IV PRN (23:16)
[2024-03-06] MEDS: Lactated Ringers 1000 ml BAG 1,000 ML IV ONE (01:01)
[2024-03-06] MEDS: Benzocaine/Menthol LOZ PO PRN (01:07)
[2024-03-06] MEDS ORDERED: Psyllium PAK PO PRN (01:15)
[2024-03-06 08:06] LABS: Mean Corpuscular Hemoglobin 31.9 pg (27-33); Mean Corpuscular Hgb Conc 34.9 g/dL (31-36); Mean Corpuscular Volume 91.4 fL (80-97); Mean Platelet Volume 7.4 fL (7.5-11.2); Platelet Count 149 10^3/uL (150-450); Red Blood Count 4.38 10^6/uL (4.06-5.63); Red Cell Distribution Width 13.7 % (12-17); White Blood Count 6.9 10^3/uL (3.6-10.2)
[2024-03-06 08:37] LABS: ABS Lymphocytes 0.6 10^3/uL (1.0-4.8); ABS Monocytes 0.7 10^3/uL (0.0-1.1); ABS Neutrophils 5.6 10^3/uL (1.5-7.6); ABS Nucleated RBC 0.02 10^3/ul; Lymphocyte % 8.4 %; Nucleated Red Blood Cells % 0.2 %/100WBC (0.0-0.8)
[2024-03-06 09:25] LABS: Albumin 3.5 g/dL (3.2-5.2); Albumin/Globulin Ratio 1.1 (1-3); Calcium 8.2 mg/dL (8.6-10.3); Creatinine, Serum 0.83 mg/dL (0.67-1.17); Globulin 3.2 g/dL (2-4); Potassium 3.8 mmol/L (3.5-5.0); Total Bilirubin 0.6 mg/dL (0.2-1.0); Total Protein 6.7 g/dL (6.4-8.9); eGFR CKD-EPI 90.1 (>60)
[2024-03-06] MEDS: Multivitamins/Minerals TAB PO SCH (10:30)
[2024-03-06] MEDS: Aspirin EC 81 mg TAB.EC (enteric coated) PO SCH (10:30)
[2024-03-06] MEDS: Enoxaparin 40 MG/0.4 ML SYR SUBCUT SCH (10:30)
[2024-03-06] MEDS: PRESERVISION AREDS PO SCH (10:39)
[2024-03-06] MEDS: Timolol 0.25% OPHTH.SOLN BTL BOTH EYES SCH (12:18)
[2024-03-06 18:36] LABS: Calcium 8.5 mg/dL (8.6-10.3); Creatinine, Serum 0.82 mg/dL (0.67-1.17); Potassium 3.8 mmol/L (3.5-5.0); eGFR CKD-EPI 90.5 (>60)
[2024-03-06] MEDS: NS 0.9% 1000 ml BAG 1,000 ML IV SCH (19:04)
[2024-03-06] MEDS: cefTRIAXone 1 gm/50 mL D5W 1 GM/50 ML BAG IV SCH (19:46)
[2024-03-06] MEDS: CMCS:Pravastatin 10 mg TAB (NF) PO SCH (20:28)
[2024-03-06] MEDS: Latanoprost 0.005% 2.5 ml BTL BOTH EYES SCH (20:29)
[2024-03-06] MEDS: Azithromycin 250 MG in NS 0.9% 250 ml 250 ML IVPB SCH (20:47)
[2024-03-07 08:48] LABS: Calcium 8.3 mg/dL (8.6-10.3); Creatinine, Serum 0.73 mg/dL (0.67-1.17); Potassium 3.8 mmol/L (3.5-5.0); eGFR CKD-EPI 93.7 (>60)
[2024-03-07] MEDS ORDERED: Sulfur Hexaflouride MICROSPHR 25 MG VIAL IV PRN (16:06)
[2024-03-07] MEDS ORDERED: Vancomycin per Pharmacy 1 EA NOTE FOLLOW UP SCH (17:00)
[2024-03-07] MEDS: Vancomycin 1,250 MG in NS 0.9% 250 ml 250 ML IVPB ONE (17:26)
[2024-03-08] MEDS: Vancomycin 1,250 MG in NS 0.9% 250 ml 250 ML IVPB SCH (05:57)
[2024-03-08 06:07] LABS: Calcium 8.4 mg/dL (8.6-10.3); Creatinine, Serum 0.61 mg/dL (0.67-1.17); Potassium 3.6 mmol/L (3.5-5.0); eGFR CKD-EPI 98.9 (>60)
[2024-03-08 07:30] LABS: ABS Eosinophils 0.1 10^3/uL (0.0-0.5); ABS Lymphocytes 0.7 10^3/uL (1.0-4.8); ABS Monocytes 0.6 10^3/uL (0.0-1.1); ABS Neutrophils 2.5 10^3/uL (1.5-7.6); Eosinophil % 3.3 %; Hematocrit 39.7 % (38-53); Hemoglobin 13.8 g/dL (13.2-16.3); Lymphocyte % 18.6 %; Mean Corpuscular Hemoglobin 31.4 pg (27-33); Mean Corpuscular Hgb Conc 34.7 g/dL (31-36); Mean Corpuscular Volume 90.5 fL (80-97); Mean Platelet Volume 8.4 fL (7.5-11.2); Platelet Count 182 10^3/uL (150-450); Red Blood Count 4.39 10^6/uL (4.06-5.63); Red Cell Distribution Width 13.4 % (12-17)
[2024-03-08 13:54] VITALS: BP 124/82
[2024-03-09] MEDS ORDERED: Vancomycin Trough Check NOTE FOLLOW UP ONE (05:30)
== END 2024-03-08 15:00 | disposition home health service (06) | DRG 871 ==
LOC: ED 18:44 → EDHOLD 18:44 → MED 03-06 13:24
PROVIDERS: ADMIT Hospitalist; ATTEND Hospitalist

== ENCOUNTER 2024-03-17 03:21 | Inpatient (IN) ==
[2024-03-17] MEDS: Albuterol (2.5 MG) 0.5 % CONC 0.5 ML NEB.SOLN INH ONE (04:19)
[2024-03-17 04:42] LABS: ABS Eosinophils 0.1 10^3/uL (0.0-0.5); ABS Lymphocytes 0.9 10^3/uL (1.0-4.8); ABS Monocytes 1.3 10^3/uL (0.0-1.1); ABS Neutrophils 9.4 10^3/uL (1.5-7.6); Eosinophil % 0.8 %; Hemoglobin 13.4 g/dL (13.2-16.3); Lymphocyte % 7.7 %; Mean Corpuscular Hemoglobin 31.3 pg (27-33); Mean Corpuscular Hgb Conc 34.4 g/dL (31-36); Mean Corpuscular Volume 91.2 fL (80-97); Mean Platelet Volume 7.2 fL (7.5-11.2); Platelet Count 325 10^3/uL (150-450); Red Blood Count 4.28 10^6/uL (4.06-5.63); White Blood Count 11.8 10^3/uL (3.6-10.2)
[2024-03-17 05:08] LABS: Albumin 3.5 g/dL (3.2-5.2); Albumin/Globulin Ratio 1.1 (1-3); Calcium 8.8 mg/dL (8.6-10.3); Creatinine, Serum 0.82 mg/dL (0.67-1.17); Globulin 3.2 g/dL (2-4); Total Bilirubin 0.6 mg/dL (0.2-1.0); Total Protein 6.7 g/dL (6.4-8.9); eGFR CKD-EPI 90.5 (>60)
[2024-03-17 05:21] LABS: Potassium 4.1 mmol/L (3.5-5.0)
[2024-03-17] MEDS ORDERED: Vancomycin 1,000 MG in NS 0.9% 250 ml 250 ML IVPB ONE (06:17)
[2024-03-17] MEDS: Piperacillin/Tazobac 3.375 BAG 3.375 GM/100 ML BAG IV ONE (06:50)
[2024-03-17] MEDS ORDERED: Piperacillin/Tazobac 3.375 BAG 3.375 GM/100 ML BAG IV SCH (07:00)
[2024-03-17] MEDS ORDERED: Vancomycin per Pharmacy 1 EA NOTE FOLLOW UP SCH (07:00)
[2024-03-17] MEDS: Vancomycin 1,250 MG in NS 0.9% 250 ml 250 ML IVPB ONE (07:46)
[2024-03-17] MEDS: NS 0.9% 1000 ml BAG 1,000 ML IV SCH (08:36)
[2024-03-17] MEDS: Aspirin EC 81 mg TAB.EC (enteric coated) PO SCH (09:22)
[2024-03-17] MEDS: Carbamide Peroxide 6.5% OTIC 15 ML BTL BOTH EARS SCH (09:26)
[2024-03-17] MEDS: Iohexol 350 (CONTRAST) 500 ML MDV IV ONE (10:19)
[2024-03-17] MEDS: Piperacillin/Tazobac 3.375 BAG 3.375 GM/100 ML BAG IV SCH ×2 (12:02→20:09)
[2024-03-17] MEDS: Timolol 0.25% OPHTH.SOLN BTL BOTH EYES SCH (15:00)
[2024-03-17] MEDS: Vancomycin 1000 MG in NS 0.9% 250 ML IVPB SCH (16:26)
[2024-03-17] MEDS: Enoxaparin 40 MG/0.4 ML SYR SUBCUT SCH (20:09)
[2024-03-17] MEDS: Latanoprost 0.005% 2.5 ml BTL BOTH EYES SCH (20:15)
[2024-03-18 07:43] LABS: ABS Lymphocytes 0.6 10^3/uL (1.0-4.8); ABS Monocytes 0.6 10^3/uL (0.0-1.1); ABS Neutrophils 9.6 10^3/uL (1.5-7.6); Eosinophil % 0.2 %; Hematocrit 37.6 % (38-53); Hemoglobin 12.7 g/dL (13.2-16.3); Lymphocyte % 5.6 %; Mean Corpuscular Hemoglobin 31.2 pg (27-33); Mean Corpuscular Hgb Conc 33.7 g/dL (31-36); Mean Corpuscular Volume 92.6 fL (80-97); Mean Platelet Volume 7.4 fL (7.5-11.2); Platelet Count 278 10^3/uL (150-450); Red Blood Count 4.06 10^6/uL (4.06-5.63); Red Cell Distribution Width 14.1 % (12-17); White Blood Count 10.9 10^3/uL (3.6-10.2)
[2024-03-18 07:54] LABS: Calcium 8.2 mg/dL (8.6-10.3); Creatinine, Serum 0.77 mg/dL (0.67-1.17); Potassium 3.8 mmol/L (3.5-5.0); eGFR CKD-EPI 92.2 (>60)
[2024-03-18] MEDS ORDERED: Vancomycin Trough Check NOTE FOLLOW UP ONE (15:30)
[2024-03-18] MEDS: VITAMINS A C E ZINC COPPER PO SCH (19:04)
[2024-03-18] MEDS: [UNRECOGNIZED DRUG - OTHER] PO SCH (19:04)
[2024-03-18] MEDS: Multivitamins/Mins AREDS2 (NF) CAP PO SCH (19:26)
[2024-03-19] MEDS: guaiFENesin/CODIENE 100mg/10mg 5 ML UDC PO PRN (00:49)
[2024-03-19 05:56] LABS: ABS Eosinophils 0.1 10^3/uL (0.0-0.5); ABS Lymphocytes 0.5 10^3/uL (1.0-4.8); ABS Monocytes 0.7 10^3/uL (0.0-1.1); ABS Neutrophils 8.4 10^3/uL (1.5-7.6); Eosinophil % 0.9 %; Hematocrit 37.9 % (38-53); Hemoglobin 12.9 g/dL (13.2-16.3); Lymphocyte % 5.4 %; Mean Corpuscular Hemoglobin 30.9 pg (27-33); Mean Corpuscular Hgb Conc 34.1 g/dL (31-36); Mean Corpuscular Volume 90.6 fL (80-97); Mean Platelet Volume 7.3 fL (7.5-11.2); Platelet Count 310 10^3/uL (150-450); Red Blood Count 4.18 10^6/uL (4.06-5.63); Red Cell Distribution Width 14.3 % (12-17); White Blood Count 9.7 10^3/uL (3.6-10.2)
[2024-03-19 06:34] LABS: Calcium 8.3 mg/dL (8.6-10.3); Creatinine, Serum 0.75 mg/dL (0.67-1.17); Potassium 3.9 mmol/L (3.5-5.0); eGFR CKD-EPI 92.9 (>60)
[2024-03-20 14:59] LABS: ABS Lymphocytes 0.4 10^3/uL (1.0-4.8); ABS Monocytes 0.6 10^3/uL (0.0-1.1); ABS Neutrophils 7.1 10^3/uL (1.5-7.6); Eosinophil % 0.6 %; Hematocrit 37.5 % (38-53); Hemoglobin 13.1 g/dL (13.2-16.3); Lymphocyte % 5.4 %; Mean Corpuscular Hemoglobin 31.3 pg (27-33); Mean Corpuscular Hgb Conc 34.8 g/dL (31-36); Mean Platelet Volume 6.9 fL (7.5-11.2); Platelet Count 364 10^3/uL (150-450); Red Blood Count 4.17 10^6/uL (4.06-5.63); Red Cell Distribution Width 13.8 % (12-17); White Blood Count 8.2 10^3/uL (3.6-10.2)
[2024-03-20] MEDS: Acetaminophen IV 1 GM/100ML 1,000 MG/100 ML BAG IV ONE (15:19)
[2024-03-20 15:23] LABS: Calcium 8.4 mg/dL (8.6-10.3); Creatinine, Serum 0.8 mg/dL (0.67-1.17); Potassium 3.8 mmol/L (3.5-5.0); eGFR CKD-EPI 91.1 (>60)
[2024-03-20] MEDS ORDERED: Naloxone Nasal Spray 4 MG/0.1 ML NASAL.SPR INTRANASAL PRN (15:45)
[2024-03-20 15:50] LABS: Osmolality Serum 280 mOsm/kg (275-295)
[2024-03-20] MEDS: Morphine 2 MG/ML SYRINGE IV ONE (18:30)
[2024-03-21 01:28] LABS: Urine Potassium Concentration 66.4 mmol/L
[2024-03-21 01:39] LABS: Urine Osmo 717 mOsm/kg (150-1150)
[2024-03-21 05:57] LABS: ABS Eosinophils 0.2 10^3/uL (0.0-0.5); ABS Lymphocytes 0.7 10^3/uL (1.0-4.8); ABS Monocytes 0.7 10^3/uL (0.0-1.1); Eosinophil % 2.4 %; Hemoglobin 12.1 g/dL (13.2-16.3); Lymphocyte % 9.2 %; Mean Corpuscular Hgb Conc 34.5 g/dL (31-36); Mean Corpuscular Volume 89.9 fL (80-97); Mean Platelet Volume 7.1 fL (7.5-11.2); Platelet Count 347 10^3/uL (150-450); Red Blood Count 3.89 10^6/uL (4.06-5.63); Red Cell Distribution Width 13.9 % (12-17); White Blood Count 7.6 10^3/uL (3.6-10.2)
[2024-03-21 06:18] LABS: C Reactive Protein 158.87 mg/L (<8.01); Calcium 8.4 mg/dL (8.6-10.3); Creatinine, Serum 0.72 mg/dL (0.67-1.17); Potassium 3.7 mmol/L (3.5-5.0); eGFR CKD-EPI 94.1 (>60)
[2024-03-22 06:34] LABS: ABS Basophils 0.1 10^3/uL (0.0-0.1); ABS Eosinophils 0.3 10^3/uL (0.0-0.5); ABS Monocytes 0.6 10^3/uL (0.0-1.1); ABS Neutrophils 4.7 10^3/uL (1.5-7.6); ABS Nucleated RBC 0.01 10^3/ul; Eosinophil % 4.1 %; Hematocrit 36.4 % (38-53); Hemoglobin 12.4 g/dL (13.2-16.3); Lymphocyte % 14.6 %; Mean Corpuscular Hemoglobin 31.3 pg (27-33); Mean Corpuscular Hgb Conc 34.1 g/dL (31-36); Mean Corpuscular Volume 91.7 fL (80-97); Mean Platelet Volume 7.3 fL (7.5-11.2); Nucleated Red Blood Cells % 0.1 %/100WBC (0.0-0.8); Platelet Count 379 10^3/uL (150-450); Red Blood Count 3.97 10^6/uL (4.06-5.63); Red Cell Distribution Width 13.9 % (12-17); White Blood Count 6.7 10^3/uL (3.6-10.2)
[2024-03-22 06:55] LABS: Calcium 8.7 mg/dL (8.6-10.3); Creatinine, Serum 0.76 mg/dL (0.67-1.17); Potassium 3.9 mmol/L (3.5-5.0); eGFR CKD-EPI 92.6 (>60)
[2024-03-23 14:40] VITALS: BP 114/78
[2024-03-23] MEDS: Psyllium PAK PO PRN (15:04)
[2024-03-23 23:14] LABS: Anaplasma phagocytophilum Negative (Negative); B. miyamotoi PCR, B Negative (Negative); Babesia divergens/MO-1 Negative (Negative); Babesia ducani Negative (Negative); Ehrlichia chaffeensis Negative (Negative); Ehrlichia ewingii/canis Negative (Negative); Ehrlichia muris eauclairensis Negative (Negative)
== END 2024-03-23 18:20 | disposition home or self-care (01) | DRG 871 ==
LOC: EDHOLD 03:21 → ED 03:21 → SUATTDRO 12:00 → MED 13:08
PROVIDERS: ADMIT Internal Medicine; ATTEND Hospitalist